=== PATIENT | male | born 1995 | race Caucasian/White ===

== ENCOUNTER 2020-11-12 11:09 | Inpatient (IN) | payer OTHER, SELFPAY ==
--- NOTE | ~2020-11-12 | CT_ITS ---
EXAMINATION: CT abdomen pelvis w con CLINICAL INFORMATION: Reason for Exam elevated liver enzymes. gallstones, cholecysitis? COMPARISON: Prior CT scan June 2017 TECHNIQUE: Multidetector volumetric imaging was performed from the superior aspect of the liver through the pubic symphysis 85 mL Omnipaque 350 injected. Sagittal and coronal reformatted images were obtained on the technologist's workstation. This CT examination was performed using dose optimization techniques as appropriate, variously including the following: *Automated exposure control *Adjustment of mA and/or kV according to patient size (this includes techniques or standardized protocols for targeted exams where dose is matched to indication/reason for exam; i.e. extremities or head) *Use of iterative reconstruction technique DLP: 392 mGy-cm FINDINGS: LOWER THORAX: Included lung bases are clear. HEPATOBILIARY: No CT evidence of focal liver lesion. Liver is enlarged mildly heterogeneous measuring 28 cm. GALLBLADDER: Gallbladder unremarkable. SPLEEN: Spleen is normal in size. PANCREAS: No focal mass or ductal dilatation. STOMACH AND GASTROINTESTINAL TRACT: Stomach is grossly unremarkable. There is no bowel distention or thickening. Appendix could not be visualized probably obscured by crowding of bowel loops and lack of oral contrast. ADRENALS: No adrenal nodules. KIDNEYS/URETERS: No hydronephrosis, stones or solid mass lesions. URINARY BLADDER: Partially decompressed. PELVIC VISCERA: Unremarkable PERITONEUM: There is moderate amount of ascites in the abdomen and dependent portion of the pelvis uncertain etiology. LYMPH NODES: No lymphadenopathy. VASCULAR:Abdominal aorta normal in size, no aneurysm found. BONES, ABDOMINAL WALL AND SOFT TISSUES: There is diffuse subcutaneous emphysema suggesting possible anasarca, Age-appropriate changes of the spine and skeletal system, no destructive osteolytic or osteosclerotic bone lesion found CT/CT abdomen pelvis w con IMPRESSION: Newly developed moderate ascites in the abdomen and pelvis uncertain etiology however, this is combined with diffuse mild subcutaneous edema suggesting possible anasarca. Heterogeneous liver, liver is enlarged measuring up to 28 cm. Exam otherwise unremarkable.
--- NOTE | ~2020-11-12 | US_ITS ---
EXAMINATION: US VENOUS ULTRASOUND WITH DOPPLER LOWER EXTREMITY, BILATERAL CLINICAL INFORMATION: Bilateral lower extremity swelling. COMPARISON: None TECHNIQUE: Ultrasound of the deep veins is performed from the hip to the calf with compression sonography and color and pulse Doppler assessment. Spectral analysis with color-flow imaging is performed. FINDINGS: Incidental note is made of bilateral enlarged lymph nodes showing partial loss of sinus fat, and cortical thickening, of indeterminate etiology. Note is also made of bilateral lower extremity edema. RIGHT: There is normal venous compression and respiratory variation and augmented flow. The visualized common femoral vein, superficial femoral vein, profunda femoral vein, popliteal vein, and the trifurcation region shows no evidence of deep venous thrombosis. There is no significant popliteal fossa cyst. LEFT: There is normal venous compression and respiratory variation and augmented flow. The visualized common femoral vein, superficial femoral vein, profunda femoral vein, popliteal vein, and the trifurcation region shows no evidence of deep venous thrombosis. There is no significant popliteal fossa cyst. If the patient's symptoms persist, followup ultrasound in 5 days 7 days might be of value to exclude proximal propagation from a non-visualized calf vein. US/US venous duplex LE BI IMPRESSION: No DVT demonstrated in the bilateral lower extremity. Nonspecific bilateral enlarged groin lymph nodes.
--- NOTE | ~2020-11-12 | XR_ITS ---
EXAMINATION: BILATERAL FOOT AND BILATERAL TIBIA AND FIBULA. CLINICAL INFORMATION: Bilateral leg and foot swelling. COMPARISON: None TECHNIQUE: 3 views each foot. 2 views each tibia and fibula and one view chest. FINDINGS: Right foot: There is mild dorsal distal foot soft tissue swelling. No visible acute fracture, dislocation subluxation seen. The ankle mortise and subtalar joints are normal. Right tibia and fibula: There is no visible acute fracture, dislocation or subluxation seen. The soft tissues are normal. The ankle mortise and subtalar joints are normal. Left foot: There is no visible acute fracture, dislocation or subluxation. There is mild dorsal distal foot soft tissue swelling. The ankle mortise and subtalar joints are normal. Left tibia and fibula: There is no visible acute fracture, dislocation or subluxation seen. The soft tissues are normal. The ankle mortise and subtalar joints are normal. XR/XR tibia fibula RT 2V IMPRESSION: Moderate dorsal distal foot soft tissue swelling. No visible acute fracture or dislocation seen. Unremarkable tibia and fibula exam.
--- NOTE | ~2020-11-12 | XR_ITS ---
EXAMINATION: BILATERAL FOOT AND BILATERAL TIBIA AND FIBULA. CLINICAL INFORMATION: Bilateral leg and foot swelling. COMPARISON: None TECHNIQUE: 3 views each foot. 2 views each tibia and fibula and one view chest. FINDINGS: Right foot: There is mild dorsal distal foot soft tissue swelling. No visible acute fracture, dislocation subluxation seen. The ankle mortise and subtalar joints are normal. Right tibia and fibula: There is no visible acute fracture, dislocation or subluxation seen. The soft tissues are normal. The ankle mortise and subtalar joints are normal. Left foot: There is no visible acute fracture, dislocation or subluxation. There is mild dorsal distal foot soft tissue swelling. The ankle mortise and subtalar joints are normal. Left tibia and fibula: There is no visible acute fracture, dislocation or subluxation seen. The soft tissues are normal. The ankle mortise and subtalar joints are normal. XR/XR tibia fibula LT 2V IMPRESSION: Moderate dorsal distal foot soft tissue swelling. No visible acute fracture or dislocation seen. Unremarkable tibia and fibula exam.
--- NOTE | ~2020-11-12 | XR_ITS ---
EXAMINATION: BILATERAL FOOT AND BILATERAL TIBIA AND FIBULA. CLINICAL INFORMATION: Bilateral leg and foot swelling. COMPARISON: None TECHNIQUE: 3 views each foot. 2 views each tibia and fibula and one view chest. FINDINGS: Right foot: There is mild dorsal distal foot soft tissue swelling. No visible acute fracture, dislocation subluxation seen. The ankle mortise and subtalar joints are normal. Right tibia and fibula: There is no visible acute fracture, dislocation or subluxation seen. The soft tissues are normal. The ankle mortise and subtalar joints are normal. Left foot: There is no visible acute fracture, dislocation or subluxation. There is mild dorsal distal foot soft tissue swelling. The ankle mortise and subtalar joints are normal. Left tibia and fibula: There is no visible acute fracture, dislocation or subluxation seen. The soft tissues are normal. The ankle mortise and subtalar joints are normal. XR/XR foot RT 2V IMPRESSION: Moderate dorsal distal foot soft tissue swelling. No visible acute fracture or dislocation seen. Unremarkable tibia and fibula exam.
--- NOTE | ~2020-11-12 | US_ITS ---
EXAMINATION: ULTRASOUND OF THE ABDOMEN PRIOR TO POSSIBLE PARACENTESIS. CLINICAL INFORMATION: New ascites COMPARISON: CT of July 10, 2017 TECHNIQUE: Limited abdominal ultrasound in preparation for paracentesis. FINDINGS: Ultrasound of 4 quadrants of the abdomen and. Umbilical region showed trace free fluid present with no drainable collection being evident. Paracentesis not performed.
--- NOTE | ~2020-11-12 | XR_ITS ---
EXAMINATION: BILATERAL FOOT AND BILATERAL TIBIA AND FIBULA. CLINICAL INFORMATION: Bilateral leg and foot swelling. COMPARISON: None TECHNIQUE: 3 views each foot. 2 views each tibia and fibula and one view chest. FINDINGS: Right foot: There is mild dorsal distal foot soft tissue swelling. No visible acute fracture, dislocation subluxation seen. The ankle mortise and subtalar joints are normal. Right tibia and fibula: There is no visible acute fracture, dislocation or subluxation seen. The soft tissues are normal. The ankle mortise and subtalar joints are normal. Left foot: There is no visible acute fracture, dislocation or subluxation. There is mild dorsal distal foot soft tissue swelling. The ankle mortise and subtalar joints are normal. Left tibia and fibula: There is no visible acute fracture, dislocation or subluxation seen. The soft tissues are normal. The ankle mortise and subtalar joints are normal. XR/XR foot LT 2V IMPRESSION: Moderate dorsal distal foot soft tissue swelling. No visible acute fracture or dislocation seen. Unremarkable tibia and fibula exam.
--- NOTE | ~2020-11-12 | XR_ITS ---
EXAMINATION: XR CHEST CLINICAL INFORMATION: Bilateral foot pain and leg pain COMPARISON: Chest x-ray 11/09/2017. TECHNIQUE: Frontal view of the chest was obtained. FINDINGS: No significant abnormality is noted involving the heart, lungs, mediastinum, bony thorax or soft tissues. XR/XR chest 1V IMPRESSION: Unremarkable chest examination.
[2020-11-12 11:13] VITALS: BP 159/95; PULSE 86; RESP 18; TEMP 36.9; O2SAT 100
[2020-11-12 11:19] LABS: Glucose, Whole Blood 362 mg/dL (60-115)
[2020-11-12 14:00] VITALS: BP 140/82; PULSE 78; RESP 18; O2SAT 99
[2020-11-12 15:16] LABS: MANUAL DIFF FLAG NO
[2020-11-12 15:17] LABS: Basophils Percent Auto 0.7 % (0-2); Eosinophils Absolute Auto 0.1 X10*3/uL (0.0-0.4); Eosinophils Percent Auto 1.1 % (0-4); Hematocrit 34.5 % (42-52); Hemoglobin 11.4 g/dl (14.0-18.0); Imm Gran Abs Auto 0.02 X10*3/uL (0.00-0.03); Imm Gran Pct Auto 0.4 % (0.0-0.4); Lymphocytes Absolute Auto 1.4 X10*3/uL (1.2-4.9); Mean Corpuscular Hemoglobin 30.6 pg (27.0-33.0); Mean Corpuscular Volume 92.5 fL (80-98); Mean Platelet Volume 10.7 fL (9.4-12.4); Monocytes Absolute Auto 0.5 X10*3/uL (0.1-1.2); Monocytes Percent Auto 8.7 % (2-11); Neutrophils Absolute Auto 3.5 X10*3/uL (2.0-8.3); Neutrophils Percent Auto 63.1 % (45-73); Platelet Count 298 X10*3/uL (160-400); Red Blood Count 3.73 X10*6/uL (4.60-5.80); Red Cell Distribution Width 14.6 % (11.0-16.0); White Blood Count 5.5 X10*3/uL (4.8-10.8)
[2020-11-12 15:24] LABS: INTERNATIONAL NORM RATIO 0.8 (0.9-1.1); Prothrombin Time 9.3 SEC (9.9-13.0)
[2020-11-12 15:26] LABS: Partial Thromboplastin Time 31.8 SEC (24.1-38.0)
--- NOTE | 2020-11-12 15:39 | ED_ITS ---
HPI - General Adult General Chief complaint: General Medical Stated complaint: swollen legs/feet Time Seen by Provider: 11/12/20 11:41 Source: patient Mode of arrival: ambulatory Limitations: no limitations History of Present Illness HPI narrative: Patient presents to ED for bilateral lower extremity swelling since last night. Patient denies any recent trauma to lower extremities, redness, fever, chills, or calf pain. Related Data Home Medications Medication Instructions Recorded Confirmed No Known Home Meds 11/12/20 11/12/20 Allergies Allergy/AdvReac Type Severity Reaction Status Date / Time No Known Allergies Allergy Unverified 12/09/19 16:13 Review of Systems Review of Systems: Yes all other systems are reviewed and are negative Constitutional: Constitutional: Reports as per HPI and Reports no additional constitutional complaints Eyes: Eyes: Reports as per HPI and Reports no additional eye complaints ENT: Reports system reviewed and no additional complaints, except as documented and Reports as per HPI Cardiovascular: Cardiovascular: Reports as per HPI and Reports no additional cardiovascular complaints Respiratory: Respiratory: Reports as per HPI and Reports no additional respiratory complaints Gastrointestinal: Gastrointestinal: Reports as per HPI and Reports no additional gastrointestinal complaints Genitourinary: Genitourinary: Reports no additional male genitourinary complaints and Reports as per HPI Comments: Results testicular swelling Musculoskeletal: Musculoskeletal: Reports no additional musculoskeletal complaints and Reports as per HPI Comments: Bilateral lower extremity swelling PMFSH Past Medical History Medical History (Updated 11/12/20 @ 18:39 by PRECIOUS Mckee) HTN (hypertension) Type 1 diabetes Social History Social History Patient Tobacco Use Status: Current someday Tobacco user Smoked in Last 30 Days: Yes Use of substances other than those prescribed or required for medical reasons: Yes Substance Use Type: Marijuana Advance Directives: No Advance Directives Information Provided: No Physical Exam Vital Signs: Vital Signs: Last Vital Signs Temp 97.8 F 11/12/20 17:58 Pulse 78 11/12/20 17:58 Resp 18 11/12/20 17:58 BP 147/81 H 11/12/20 17:58 Pulse Ox 100 11/12/20 17:58 Body Mass Index 20.0 Const: General: cooperative, healthy appearing, comfortable, no acute distress, well developed, alert, awake and Physically active Orientation/consciousness: patient oriented x3 HENMT: Head: Yes normal to inspection, Yes No palpable skull fracture present, Yes normocephalic, Yes atraumatic and No abrasion Eyes: General: appearance normal, both eyes and all related structures Neck: Neck: Yes normal visual inspection, Yes full ROM, Yes no lymphadenopathy, Yes no meningeal signs, Yes trachea midline, Yes supple and No tender Chest: Chest palpation & inspection: normal inspection of the chest and normal palpation of entire chest wall Resp: Effort & Inspection: normal respiratory effort and able to speak in complete sentences Auscultation: clear to auscultation bilaterally Cardio: Jugular venous distension: no JVD Heart sounds: S1 normal heart sound present and S2 normal heart sound present GI: Inspection: Yes normal to inspection and No abdominal wall ecchymosis Palpation (GI): Soft to palpation, not firm, nontender, no guarding and not rigid : General: No CVA tenderness and Yes no CVA tenderness Back/Spine/Pelvis: Back: no CVA tenderness, No CVA tenderness and No back tenderness Skin: General skin exam: no rashes or lesions noted and elasticity normal Neuro: General: patient oriented x3, gait normal, no meningeal signs and CN's II-XI intact bilaterally Cranial nerves: Yes CN's II-XII intact bilaterally Extrem: Other: Positive for bilateral lower extremity swelling and pitting edema of legs/ankle/and feet. Negative for any erythema or calf tenderness. Motor/neuro/vascular exam intact. Psych: Appearance: grossly normal, well kempt and not disheveled Course Course Course Narrative: Patient hypoglycemic while, fluids and be given insulin. Will will do cardiac/anasarca workup. Patient will have EKG BNP troponin and chest x-ray and liver enzymes ordered. Reevaluation(s) Reevaluation #1: BNP 231. Liver enzymes elevated non to compare to her was sent for CT scan. Patient hyperglycemic but not in DKA. Time: 16:35 Reevaluation #2: CT scan shows ascites. Physical exam indicate anasarca possib ly due to liver failure. Patient agreeable to admission. COVID swab negative. EKG will be done. Time: 18:33 Medical Decision Making MDM Narrative Medical decision making narrative: Anasarca. Cirrhosis Lab Data Result diagrams: 11/12/20 15:11 11/12/20 15:11 Labs: Lab Results 11/12/20 11/12/20 11/12/20 Range/Units 11:15 15:11 15:11 WBC 5.5 (4.8-10.8) X10*3/uL RBC 3.73 L (4.60-5.80) X10*6/uL Hgb 11.4 L (14.0-18.0) g/dl Hct 34.5 L (42-52) % MCV 92.5 (80-98) fL MCH 30.6 (27.0-33.0) pg MCHC 33.0 (31.0-36.0) g/dl RDW 14.6 (11.0-16.0) % Plt Count 298 (160-400) X10*3/uL MPV 10.7 (9.4-12.4) fL Immature Gran % (Auto) 0.4 (0.0-0.4) % Neut % (Auto) 63.1 (45-73) % Lymph % (Auto) 26.0 (20-40) % [place] % (Auto) 8.7 (2-11) % Eos % (Auto) 1.1 (0-4) % Baso % (Auto) 0.7 (0-2) % Lymph # (Auto) 1.4 (1.2-4.9) X10*3/uL [place] # (Auto) 0.5 (0.1-1.2) X10*3/uL Eos # (Auto) 0.1 (0.0-0.4) X10*3/uL Baso # (Auto) 0.0 (0.0-0.2) X10*3/uL Abs Immat Gran (auto) 0.02 (0.00-0.03) X10*3/uL Absolute Neuts (auto) 3.5 (2.0-8.3) X10*3/uL Absolute Nucleated RBC 0.000 (0.0-0.012) X10*3/uL Nucleated RBC % (auto) 0.0 (0.0-0.2) /100WBC PT 9.3 L (9.9-13.0) SEC INR 0.8 L (0.9-1.1) APTT 31.8 (24.1-38.0) SEC Sodium (135-145) mmol/L Potassium (3.3-5.1) mmol/L Chloride (96-108) mmol/L Carbon Dioxide (22-29) mmol/L Anion Gap (12-20) BUN (9-16) mg/dL Creatinine (0.5-1.4) mg/dL Estim Creat Clear Calc Estimated GFR POC Glucose 362 H* (60-115) mg/dL Random Glucose (60-115) mg/dL Calcium (8.4-10.2) mg/dL Total Bilirubin (0.0-1.0) mg/dL AST (5-37) U/L ALT (0-40) U/L Alkaline Phosphatase (39-117) U/L Troponin I High Sens (<3.5-35.0) ng/L B-Natriuretic Peptide (<100) pg/mL Total Protein (6.5-8.0) g/dL Albumin (3.5-5.0) g/dL Acetone, Qual (Negative) COVID-19 (ELLIOT) (Negative) COVID-19 Clin Com 11/12/20 11/12/20 11/12/20 Range/Units 15:11 15:11 16:09 WBC (4.8-10.8) X10*3/uL RBC (4.60-5.80) X10*6/uL Hgb (14.0-18.0) g/dl Hct (42-52) % MCV (80-98) fL MCH (27.0-33.0) pg MCHC (31.0-36.0) g/dl RDW (11.0-16.0) % Plt Count (160-400) X10*3/uL MPV (9.4-12.4) fL Immature Gran % (Auto) (0.0-0.4) % Neut % (Auto) (45-73) % Lymph % (Auto) (20-40) % [place] % (Auto) (2-11) % Eos % (Auto) (0-4) % Baso % (Auto) (0-2) % Lymph # (Auto) (1.2-4.9) X10*3/uL [place] # (Auto) (0.1-1.2) X10*3/uL Eos # (Auto) (0.0-0.4) X10*3/uL Baso # (Auto) (0.0-0.2) X10*3/uL Abs Immat Gran (auto) (0.00-0.03) X10*3/uL Absolute Neuts (auto) (2.0-8.3) X10*3/uL Absolute Nucleated RBC (0.0-0.012) X10*3/uL Nucleated RBC % (auto) (0.0-0.2) /100WBC PT (9.9-13.0) SEC INR (0.9-1.1) APTT (24.1-38.0) SEC Sodium 138 (135-145) mmol/L Potassium 5.3 H (3.3-5.1) mmol/L Chloride 102 (96-108) mmol/L Carbon Dioxide 26 (22-29) mmol/L Anion Gap 15 (12-20) BUN 15 (9-16) mg/dL Creatinine 0.81 (0.5-1.4) mg/dL Estim Creat Clear Calc 105.4 Estimated GFR > 60 POC Glucose 433 H* (60-115) mg/dL Random Glucose 497 H* (60-115) mg/dL Calcium 8.9 (8.4-10.2) mg/dL Total Bilirubin 0.5 (0.0-1.0) mg/dL AST 129 H (5-37) U/L ALT 176 H (0-40) U/L Alkaline Phosphatase 145 H (39-117) U/L Troponin I High Sens < 3.5 (<3.5-35.0) ng/L B-Natriuretic Peptide 213 H (<100) pg/mL Total Protein 6.0 L (6.5-8.0) g/dL Albumin 3.4 L (3.5-5.0) g/dL Acetone, Qual Negative (Negative) COVID-19 (ELLIOT) (Negative) COVID-19 Clin Com 11/12/20 11/12/20 Range/Units 17:45 17:50 WBC (4.8-10.8) X10*3/uL RBC (4.60-5.80) X10*6/uL Hgb (14.0-18.0) g/dl Hct (42-52) % MCV (80-98) fL MCH (27.0-33.0) pg MCHC (31.0-36.0) g/dl RDW (11.0-16.0) % Plt Count (160-400) X10*3/uL MPV (9.4-12.4) fL Immature Gran % (Auto) (0.0-0.4) % Neut % (Auto) (45-73) % Lymph % (Auto) (20-40) % [place] % (Auto) (2-11) % Eos % (Auto) (0-4) % Baso % (Auto) (0-2) % Lymph # (Auto) (1.2-4.9) X10*3/uL [place] # (Auto) (0.1-1.2) X10*3/uL Eos # (Auto) (0.0-0.4) X10*3/uL Baso # (Auto) (0.0-0.2) X10*3/uL Abs Immat Gran (auto) (0.00-0.03) X10*3/uL Absolute Neuts (auto) (2.0-8.3) X10*3/uL Absolute Nucleated RBC (0.0-0.012) X10*3/uL Nucleated RBC % (auto) (0.0-0.2) /100WBC PT (9.9-13.0) SEC INR (0.9-1.1) APTT (24.1-38.0) SEC Sodium (135-145) mmol/L Potassium (3.3-5.1) mmol/L Chloride (96-108) mmol/L Carbon Dioxide (22-29) mmol/L Anion Gap (12-20) BUN (9-16) mg/dL Creatinine (0.5-1.4) mg/dL Estim Creat Clear Calc Estimated GFR POC Glucose 197 H (60-115) mg/dL Random Glucose (60-115) mg/dL Calcium (8.4-10.2) mg/dL Total Bilirubin (0.0-1.0) mg/dL AST (5-37) U/L ALT (0-40) U/L Alkaline Phosphatase (39-117) U/L Troponin I High Sens (<3.5-35.0) ng/L B-Natriuretic Peptide (<100) pg/mL Total Protein (6.5-8.0) g/dL Albumin (3.5-5.0) g/dL Acetone, Qual (Negative) COVID-19 (ELLIOT) Negative (Negative) COVID-19 Clin Com See Note Discharge Plan Discharge Clinical Impression: Anasarca, Ascites Patient Disposition: Admitted As Inpatient
[2020-11-12 15:47] LABS: B Type Natriuretic Peptide 213 pg/mL (<100); Troponin-I High Sensitivity < 3.5 ng/L (<3.5-35.0)
[2020-11-12 15:49] LABS: Alanine Aminotransferase 176 U/L (0-40); Albumin Level 3.4 g/dL (3.5-5.0); Alkaline Phosphatase 145 U/L (39-117); Anion Gap 15 (12-20); Aspartate Amino Transferase 129 U/L (5-37); Bilirubin Total 0.5 mg/dL (0.0-1.0); Blood Urea Nitrogen 15 mg/dL (9-16); Calcium 8.9 mg/dL (8.4-10.2); Carbon Dioxide 26 mmol/L (22-29); Chloride 102 mmol/L (96-108); Creatinine Clr Calc Pharmacy 105.4; Estimated Glomerular Filt Rate > 60; Glucose Random 497 mg/dL (60-115); Potassium 5.3 mmol/L (3.3-5.1); Sodium 138 mmol/L (135-145)
[2020-11-12 16:00] VITALS: BP 149/89; PULSE 83; RESP 18; TEMP 36.9; O2SAT 100
[2020-11-12 16:00] LABS: Acetone, serum QL Negative (Negative)
[2020-11-12] MEDS: 0.9 % Sodium Chloride 1,000 ML 999 ML IV (16:15)
[2020-11-12] MEDS: Insulin Regular, Human 100 UNIT/ML 3 ML VIAL 10 UNIT IVPUSH (16:16)
[2020-11-12 16:25] LABS: Glucose, Whole Blood 433 mg/dL (60-115)
[2020-11-12] MEDS: iohexoL 350 MG/ML 100 ML INFUS..BTL IV (16:54)
[2020-11-12 17:48] LABS: Glucose, Whole Blood 197 mg/dL (60-115)
[2020-11-12 17:58] VITALS: BP 147/81; PULSE 78; RESP 18; TEMP 36.6; O2SAT 100
[2020-11-12 18:11] LABS: COVID-19 Test Negative (Negative)
--- NOTE | 2020-11-12 18:34 | ECG_ITS ---
Test Reason : EDEMA Blood Pressure : / mmHG Vent. Rate : 075 BPM Atrial Rate : 075 BPM P-R Int : 134 ms QRS Dur : 082 ms QT Int : 422 ms P-R-T Axes : 055 009 018 degrees QTc Int : 471 ms Normal sinus rhythm Nonspecific T wave abnormality Prolonged QT Abnormal ECG When compared with ECG of 17-JUN-2017 12:35, Nonspecific T wave abnormality now evident in Inferior leads Nonspecific T wave abnormality now evident in Anterior leads Referred By: Toni Garvin Electronically Signed By:LELIA DELEON
--- NOTE | 2020-11-12 19:17 | P.HPHOSP_ITS ---
History of Present Illness Date of Service: 11/12/20 Chief Complaint: Leg swelling 25-year-old male with history of diabetes mellitus type 1 (with prior episodes of DKA, including a recent episode on 10/31/2020), also has history of hypertension, depression, cocaine use, alcohol abuse, who presented with new onset bilateral lower extremity swelling. History from the patient and from ED notes. Patient endorses that he was discharged from [facility] on 11/01/2020 after being treated for severe DKA; at that time was also found to be in paroxysmal atrial fibrillation (which resolved before he was discharged), as well as suicidal ideation. After discharge, he was doing fine up until yesterday, when he noticed bilateral lower extremity swelling. Subsequently, he came to the ED. He denies any other symptoms (denies chest pain, shortness of breath, fever, chills, nausea, vomiting, abdominal pain). He wonders if his high salt diet might have led to this. In the ED, vital signs were significant for blood pressure as high as 159/95, otherwise vitals were unremarkable. CBC and BMP were remarkable for potassium of 5.3, blood glucose as high as 497, AST 129, ALT 176, alkaline phosphatase 145, BNP 213, total protein low at 6.0, albumin low at 3.4. Chest x-ray, bilateral foot and bilateral tibia and fibula x-rays, venous duplex were all negative for acute bony issues, but did show lower extremity edema. Abdominal/pelvis CT revealed newly developed moderate ascites in the abdomen and pelvis uncertain etiology however, this is combined with diffuse mild subcutaneous edema suggesting possible anasarca. Heterogeneous liver, liver is enlarged measuring 28 cm. In the ED, the patient was treated with insulin, 1 L IV fluid bolus. The patient is being admitted for new lower extremity swelling/anasarca, transaminitis. Review of Systems Review of Systems: Constitutional: ?No Weight Change, No Fever, No Chills, No Night Sweats, No Fatigue, No Malaise ENT/Mouth: ?No Hearing Changes, No Ear Pain, No Nasal Congestion, No Sinus Pain, No Hoarseness, No sore throat, No Rhinorrhea, No Swallowing Difficulty Eyes: ?No Eye Pain, No Swelling, No Redness, No Discharge, No Vision Changes Cardiovascular: ?No Chest Pain, No SOB, No Orthopnea, No Claudication, No Palpitations. POSITIVE for bilateral lower extremity Edema Respiratory: ?No Cough, No Sputum, No Wheezing, No Smoke Exposure, No Dyspnea on Exertion, No Dyspnea Gastrointestinal: ?No Nausea, No Vomiting, No Diarrhea, No Constipation, No Pain , No Heartburn, No Anorexia, No Dysphagia, No Hematochezia, No Melena, No Jaundice Genitourinary: ?No Dysuria, No Urinary Frequency, No Hematuria, No Flank Pain Musculoskeletal: ?No Joint Swelling, No Joint Stiffness, No Back Pain, No Neck Pain Skin: ?No Skin Lesions, No Pruritis Neuro: ?No Weakness, No Numbness, No Paresthesias, No Loss of Consciousness, No Syncope, No Dizziness, No Headache, No Coordination Changes, No Recent Falls Psych: ?No Anxiety/Panic, No Depression, No Insomnia, No Personality Changes, No Delusions, No Suicidal Ideation /Homicidal Ideation /Auditory Hallucinations /Visual Hallucinations Heme/Lymph: ?No Bruising, No Bleeding, No Transfusions History, No Lymphadenopathy Endocrine: ?No Polyuria, No Polydipsia, No Temperature Intolerance [facility] Medical History Cocaine use disorder, mild, in early remission Depression H/O alcohol abuse HTN (hypertension) Paroxysmal A-fib Type 1 diabetes Pertinent family history: Paternal grandfather with DM2 Surgical History H/O laceration repair Social History Patient Tobacco Use Status: Current someday Tobacco user Smoked in Last 30 Days: Yes Use of substances other than those prescribed or required for medical reasons: Yes Substance Use Type: Marijuana Advance Directives: No Advance Directives Information Provided: No Meds Allergies Allergy/AdvReac Type Severity Reaction Status Date / Time No Known Allergies Allergy Unverified 12/09/19 16:13 Active Medications: Current Medications Generic Name Dose Route Start Last Admin Trade Name Freq PRN Reason Stop Dose Admin Acetaminophen 650 mg 11/12/20 19:12 Acetaminophen 325 Mg Tablet PO Q6H PRN Pain, Mild (Pain Scale 1-3) Enoxaparin Sodium 40 mg 11/12/20 20:00 Enoxaparin Sodium 40 Mg/0.4 Ml Syringe SUBCUT Q24H ADRIANA Sodium Chloride 3 ml 11/13/20 00:00 0.9 % Sodium Chloride Flush 3 Ml Syringe IVFLUSH QSHIFT [facility] Home Medications Medication Instructions Recorded Confirmed Last Taken Type No Known Home Meds 11/12/20 11/12/20 Unknown History Physical Exam Vital Signs and Narrative: Vital Signs: Last Vital Signs Temp 97.8 F 11/12/20 17:58 Pulse 78 11/12/20 17:58 Resp 18 11/12/20 17:58 BP 147/81 H 11/12/20 17:58 Pulse Ox 100 11/12/20 17:58 Body Mass Index 20.0 GENERAL APPEARANCE: Well developed, well nourished, alert and cooperative, and appears to be in no acute distress. HEAD: Normocephalic. EYES: PERRL, EOMI. Vision is grossly intact. EARS: Hearing grossly intact. NOSE: No nasal discharge. THROAT: Oral cavity and pharynx normal. No inflammation, swelling, exudate, or lesions. NECK: Neck supple, non-tender without lymphadenopathy, masses or thyromegaly. CARDIAC: Normal S1 and S2. No S3, S4 or murmurs. Rhythm is regular. There is no cyanosis or pallor. Extremities are warm and well perfused. THERE IS 2+ bi lateral lower extremity pitting edema LUNGS: Clear to auscultation and percussion without rales, rhonchi, wheezing or diminished breath sounds. ABDOMEN: Positive bowel sounds. Soft, nondistended, nontender. No guarding or rebound. No masses. MUSKULOSKELETAL: Examination of both shoulders, elbows, wrists, ankles, knees, legs, and hips reveals normal range of motion, normal sensation without tender ness, swelling, discoloration, weakness or deformity. Peripheral pulses intact. NEUROLOGICAL: CN II-XII intact. Strength and sensation symmetric and intact throughout. SKIN: Skin normal color, texture and turgor with no lesions or eruptions. PSYCHIATRIC: The mental examination revealed the patient was oriented to person, place, and time. The patient was able to demonstrate good judgement and reason, without hallucinations, abnormal affect or abnormal behaviors during the examination. Results Labs CBC and Chem 7: 11/12/20 15:11 11/12/20 15:11 Labs: Laboratory Results - last 24 hr 11/12/20 11/12/20 11/12/20 11:15 15:11 15:11 MCV 92.5 MCH 30.6 MCHC 33.0 RDW 14.6 Plt Count 298 MPV 10.7 Immature Gran % (Auto) 0.4 Neut % (Auto) 63.1 Lymph % (Auto) 26.0 [place] % (Auto) 8.7 Eos % (Auto) 1.1 Baso % (Auto) 0.7 Lymph # (Auto) 1.4 [place] # (Auto) 0.5 Eos # (Auto) 0.1 Baso # (Auto) 0.0 Abs Immat Gran (auto) 0.02 Absolute Neuts (auto) 3.5 Absolute Nucleated RBC 0.000 Nucleated RBC % (auto) 0.0 PT 9.3 L INR 0.8 L APTT 31.8 Anion Gap Estim Creat Clear Calc Estimated GFR POC Glucose 362 H* Random Glucose Calcium Total Bilirubin AST ALT Alkaline Phosphatase Troponin I High Sens B-Natriuretic Peptide Total Protein Albumin Acetone, Qual COVID-19 (ELLIOT) COVID-[employer] 11/12/20 11/12/20 11/12/20 15:11 15:11 16:09 MCV MCH MCHC RDW Plt Count MPV Immature Gran % (Auto) Neut % (Auto) Lymph % (Auto) [place] % (Auto) Eos % (Auto) Baso % (Auto) Lymph # (Auto) [place] # (Auto) Eos # (Auto) Baso # (Auto) Abs Immat Gran (auto) Absolute Neuts (auto) Absolute Nucleated RBC Nucleated RBC % (auto) PT INR APTT Anion Gap 15 Estim Creat Clear Calc 105.4 Estimated GFR > 60 POC Glucose 433 H* Random Glucose 497 H* Calcium 8.9 Total Bilirubin 0.5 AST 129 H ALT 176 H Alkaline Phosphatase 145 H Troponin I High Sens < 3.5 B-Natriuretic Peptide 213 H Total Protein 6.0 L Albumin 3.4 L Acetone, Qual Negative COVID-19 (ELLIOT) COVID-[employer] 11/12/20 11/12/20 17:45 17:50 MCV MCH MCHC RDW Plt Count MPV Immature Gran % (Auto) Neut % (Auto) Lymph % (Auto) [place] % (Auto) Eos % (Auto) Baso % (Auto) Lymph # (Auto) [place] # (Auto) Eos # (Auto) Baso # (Auto) Abs Immat Gran (auto) Absolute Neuts (auto) Absolute Nucleated RBC Nucleated RBC % (auto) PT INR APTT Anion Gap Estim Creat Clear Calc Estimated GFR POC Glucose 197 H Random Glucose Calcium Total Bilirubin AST ALT Alkaline Phosphatase Troponin I High Sens B-Natriuretic Peptide Total Protein Albumin Acetone, Qual COVID-19 (ELLIOT) Negative COVID-19 Clin Com See Note Imaging Radiologist's Impressions: Impressions Chest X-Ray 11/12/20 14:54 IMPRESSION: Unremarkable chest examination. Foot X-Ray 11/12/20 14:54 IMPRESSION: Moderate dorsal distal foot soft tissue swelling. No visible acute fracture or dislocation seen. Unremarkable tibia and fibula exam. Foot X-Ray 11/12/20 14:54 IMPRESSION: Moderate dorsal distal foot soft tissue swelling. No visible acute fracture or dislocation seen. Unremarkable tibia and fibula exam. Tibia/Fibula X-Ray 11/12/20 14:54 IMPRESSION: Moderate dorsal distal foot soft tissue swelling. No visible acute fracture or dislocation seen. Unremarkable tibia and fibula exam. Tibia/Fibula X-Ray 11/12/20 14:54 IMPRESSION: Moderate dorsal distal foot soft tissue swelling. No visible acute fracture or dislocation seen. Unremarkable tibia and fibula exam. Venous Duplex 11/12/20 14:54 IMPRESSION: No DVT demonstrated in the bilateral lower extremity. Nonspecific bilateral enlarged groin lymph nodes. Abdomen/Pelvis CT 11/12/20 16:07 IMPRESSION: Newly developed moderate ascites in the abdomen and pelvis uncertain etiology however, this is combined with diffuse mild subcutaneous edema suggesting possible anasarca. Heterogeneous liver, liver is enlarged measuring up to 28 cm. Exam otherwise unremarkable. Assessment and Plan (1) Anasarca: Status: Acute (2) Ascites: Status: Acute (3) Cocaine use disorder, mild, in early remission: Status: Acute (4) Paroxysmal A-fib: Status: Acute (5) HTN (hypertension): Status: Acute (6) Depression: Status: Acute (7) H/O alcohol abuse: Status: Acute Anasarca/Ascities: -CT of the abdomen/pelvis revealed newly developed moderate ascites in the abdomen and pelvis uncertain etiology however, this is combined with diffuse mild subcutaneous edema suggesting possible anasarca. -CT of the abdomen also showed heterogeneous liver, liver is enlarged measuring up to 28 cm -DDX: Congestive heart failure, Budd-Chiari syndrome (portal vein thrombosis), perhaps there is inflammation in the liver (hepatitis) causing restriction of blood flow, other -ordered paracentesis with labs to look for etiology (With the following labs: Ascities culture/ LDH/ gram stain/ albumin/ cell count and differential/ total protein/ Glucose). -Morning team can calculate the saag score when above labs return -wrap and elevate legs to promote intravascular flow of subcutaneous fluid -likely will give Lasix dose after the legs have been wrapped for few hours -order D-dimer to assess for Budd-Chiari syndrome. If D-dimer is positive, would need a venous Doppler of the portal vein -hepatitis panel ordered (HBsAg blood, HCV antibody blood, Hepatitis B core antibody, IgM ) -echocardiogram ordered -Consider GI consult Cocaine use disorder: -patient endorses that his last use of cocaine was about 2-3 weeks ago -May have contributed to possible heart failure -If echo shows new heart failure, consider cardiology consult. Paroxysmal atrial fibrillation: -on his hospital records from [facility], it does state that the patient did have paroxysmal atrial fibrillation, but that he reverted to sinus tachycardia -telemetry ordered Hypertension: -possibly exacerbated with cocaine use in the past, which could have caused congestive heart failure (possible in the face of new onset anasarca) -continue home medications -echocardiogram to assess for CHF as per above Depression: -continue home medications History of alcohol abuse: -noted FEN: Diabetic diet CODE STATUS: FULL CODE DISPO: Admit to Observation Quality Stroke Does the patient have a stroke diagnosis?: No VTE Prior VTE?: No VTE Risk Level:: Medical - low VTE Device Contraindication: Treatment Not Indicated VTE Drug Contraindication: N/A - Med Ordered
[2020-11-12] MEDS: Enoxaparin Sodium 40 MG/0.4 ML SYRINGE SUBCUT (20:27)
[2020-11-12 20:32] VITALS: BP 129/67; PULSE 85; RESP 18; TEMP 36.9; O2SAT 98
[2020-11-12 20:34] VITALS: BP 129/67; PULSE 85; RESP 18; TEMP 36.9; O2SAT 98
[2020-11-13] VITALS: BP 129/67; PULSE 98; RESP 16; O2SAT 99
[2020-11-13] MEDS: Furosemide 40 MG/4 ML VIAL IVPUSH (00:48)
[2020-11-13] MEDS: 0.9 % Sodium Chloride Flush 3 ML SYRINGE IVFLUSH ×2 (00:49→08:44)
--- NOTE | 2020-11-13 03:48 | PC.NURSE ---
pt began c/o severe abdominal pain. md aware. plan: to order zofran for nausea/vomiting and2mg morphine for severe abd pain.
[2020-11-13 04:00] VITALS: BP 141/64; PULSE 100; RESP 18; TEMP 36.8; O2SAT 100
[2020-11-13] MEDS: ondansetron HCL 4 MG/2 ML VIAL IVPUSH (04:04)
[2020-11-13] MEDS: Morphine Sulfate 2 MG/ML CARTRIDGE IVPUSH (04:05)
[2020-11-13 04:22] LABS: Glucose, Whole Blood 579 mg/dL (60-115)
[2020-11-13 04:24] LABS: Glucose, Whole Blood 593 mg/dL (60-115)
--- NOTE | 2020-11-13 04:26 | PC.NURSE ---
MD NOTIFIED OF 2X BGL OF 597 AND 593, BGL VERIFIED WITH CONTROL. TO ORDER LABS, IVF, INSULIN.
[2020-11-13] MEDS: 0.9 % Sodium Chloride 1,000 ML 999 ML IV (04:40)
[2020-11-13] MEDS: Insulin Regular, Human 100 UNIT/ML 3 ML VIAL 10 UNIT IVPUSH (04:41)
--- NOTE | 2020-11-13 04:44 | PC.NURSE ---
2ND IV PLACED.
[2020-11-13 04:53] LABS: Acetone, serum QL Small (Negative)
--- NOTE | 2020-11-13 04:58 | PC.NURSE ---
Hospitalist notified of ekg results.
--- NOTE | 2020-11-13 05:03 | PC.NURSE ---
notified of small acetone.
[2020-11-13 05:04] LABS: Anion Gap 30 (12-20); Blood Urea Nitrogen 19 mg/dL (9-16); Calcium 8.7 mg/dL (8.4-10.2); Carbon Dioxide 14 mmol/L (22-29); Chloride 95 mmol/L (96-108); Estimated Glomerular Filt Rate > 60; Sodium 134 mmol/L (135-145)
[2020-11-13 05:07] LABS: Glucose Random 646 mg/dL (60-115)
--- NOTE | 2020-11-13 05:07 | PC.NURSE ---
notified labs plan to start insulin drip
[2020-11-13 05:22] LABS: HBc Num1 0.08 S/CO (0.00-0.79); Hepatitis B Core Antibody Nonreactive (Nonreactive); Hepatitis B Surface Antigen Negative (Negative); ~HepC Num1 0.05 S/CO (0.00-0.79); ~Hepatitis C Antibody Nonreactive (Nonreactive)
[2020-11-13] MEDS: 0.9 % Sodium Chloride 1,000 ML 150 ML IVCONT (05:34)
[2020-11-13] MEDS: Insulin Regular/NS 100 UNIT/100 ML PLAST..BAG IVCONT (05:34)
[2020-11-13 05:35] LABS: Glucose, Whole Blood 442 mg/dL (60-115)
[2020-11-13 05:49] LABS: Basophils Absolute Auto 0.1 X10*3/uL (0.0-0.2); Basophils Percent Auto 0.5 % (0-2); Eosinophils Absolute Auto 0.1 X10*3/uL (0.0-0.4); Eosinophils Percent Auto 0.5 % (0-4); Hematocrit 37.6 % (42-52); Hemoglobin 12.5 g/dl (14.0-18.0); Imm Gran Abs Auto 0.05 X10*3/uL (0.00-0.03); Imm Gran Pct Auto 0.5 % (0.0-0.4); Lymphocytes Absolute Auto 1.4 X10*3/uL (1.2-4.9); Lymphocytes Percent Auto 14.1 % (20-40); Mean Corpuscular HGB Conc 33.2 g/dl (31.0-36.0); Mean Corpuscular Hemoglobin 30.4 pg (27.0-33.0); Mean Corpuscular Volume 91.5 fL (80-98); Mean Platelet Volume 10.3 fL (9.4-12.4); Monocytes Absolute Auto 0.7 X10*3/uL (0.1-1.2); Monocytes Percent Auto 7.3 % (2-11); Neutrophils Absolute Auto 7.8 X10*3/uL (2.0-8.3); Neutrophils Percent Auto 77.1 % (45-73); Platelet Count 348 X10*3/uL (160-400); Red Blood Count 4.11 X10*6/uL (4.60-5.80); Red Cell Distribution Width 14.3 % (11.0-16.0); White Blood Count 10.1 X10*3/uL (4.8-10.8)
[2020-11-13 05:50] LABS: MANUAL DIFF FLAG NO
[2020-11-13 06:04] VITALS: O2SAT 98
[2020-11-13 06:09] LABS: ABG Base Excess -9.1 mmol/L; ABG HCO3 15 mmol/L (22-26); ABG pCO2 27 mmHg (32-45); ABG pCO2 TC 27 mmHg (32-45); ABG pH 7.34 (7.35-7.45); ABG pH TC 7.34 (7.35-7.45); ABG pO2 130 mmHg (83-108); ABG pO2 TC 129 (83-108)
[2020-11-13 06:14] LABS: Estimated Average Glucose 272 mg/dL; Hemoglobin A1c % 11.1 %
[2020-11-13 06:23] LABS: Anion Gap 25 (12-20); Blood Urea Nitrogen 18 mg/dL (9-16); Calcium 8.8 mg/dL (8.4-10.2); Carbon Dioxide 17 mmol/L (22-29); Chloride 98 mmol/L (96-108); Creatinine Clr Calc Pharmacy 82.1; Estimated Glomerular Filt Rate > 60; Glucose Random 525 mg/dL (60-115); Phosphorus 3.7 mg/dL (2.7-4.5); Potassium 4.1 mmol/L (3.3-5.1); Sodium 136 mmol/L (135-145)
[2020-11-13 06:38] LABS: Glucose, Whole Blood 335 mg/dL (60-115)
--- NOTE | 2020-11-13 06:44 | PC.NURSE ---
Insulin drip decreased per protocol by poc bgl-carlie joshi witnessed.
[2020-11-13 06:51] LABS: D Dimer 219 NG/ML
[2020-11-13] MEDS: KCl 40 mEq in 5% Dex/0.45% Sod 40 MEQ/1,000 ML IV.SOLN 150 MEQ IVCONT (06:56)
[2020-11-13 08:00] VITALS: BP 100/56; PULSE 94; RESP 18; O2SAT 98
[2020-11-13] MEDS: Lactated Ringers 1,000 ML 100 ML IVCONT (09:08)
--- NOTE | 2020-11-13 09:38 | PM.CCN ---
Critical Care Event Note Summary Date of Service: 11/13/20 Code activated: No Narrative: Notified by nurse that patient wants to leave the hospital against medical advice. On my examination patient is alert and oriented, hemodynamically stable, normoxemic on room air with no complaints, except wanting to leave the hospital. Patient does stents that he has significant diabetic ketoacidosis and can if he does not get sufficient amount of insulin and IV fluids. Patient wants to leave regardless. Discharge against medical advice order placed. Critical Care Time (minutes): 0
--- NOTE | 2020-11-13 09:47 | MHC.CM.PN ---
Pt has opted to leave AMA and will not be seen by CM
--- NOTE | 2020-11-13 11:01 | PM.DS ---
DS: Providers Provider Date of Service: 11/13/20 Date of admission: 11/13/20 07:15 Primary care physician: Tl Roach MD DS: Diagnosis Discharge Diagnosis (1) Anasarca: Status: Acute (2) Ascites: Status: Acute (3) Cocaine use disorder, mild, in early remission: Status: Acute (4) Paroxysmal A-fib: Status: Acute (5) HTN (hypertension): Status: Acute (6) Depression: Status: Acute (7) H/O alcohol abuse: Status: Acute DS: Medications Discharge Medications Home Medications: Home Medications Medication Instructions Recorded Confirmed amlodipine 5 mg tablet 1 tab PO DAILY 11/13/20 11/13/20 blood sugar diagnostic (FreeStyle 11/13/20 11/13/20 Lite Strips) flash glucose sensor (FreeStyle 11/13/20 11/13/20 Anton 14 Day Sensor) insulin glargine 100 unit/mL (3 30 unit SUBCUT QAM 11/13/20 11/13/20 mL) subcutaneous pen (Lantus Solostar U-100 Insulin) insulin lispro 100 unit/mL See Protocol SUBCUT DIRECTED 11/13/20 11/13/20 subcutaneous pen (Humalog KwikPen (U-100) Insulin) lisinopril 5 mg tablet 0.5 tab PO DAILY 11/13/20 11/13/20 mirtazapine 7.5 mg tablet 1 tab PO BEDTIME 11/13/20 11/13/20 pen needle, diabetic 31 gauge x 11/13/20 11/13/20 3/16 (BD Ultra-Fine Mini Pen Needle) DS: Summary Hospital Course Hospital Course: 25-year-old gentleman with underlying history of polysubstance abuse, paroxysmal AFib, diabetes mellitus, poor compliance with insulin therapy admitted on 11/12/2020 with diabetic ketoacidosis and started on insulin. Patient decided that he wants to leave the hospital against medical advice on 11/13/2020 at approximately 9 in the morning. On my examination patient is alert and oriented, hemodynamically stable, normoxemic on room air with no complaints, except wanting to leave the hospital. Patient does understan that he has significant diabetic ketoacidosis and can if he does not get sufficient amount of insulin and IV fluids. Patient wants to leave regardless. Patient discharged against medical advice. Time Spent with Patient Time attestation: Total time spent providing and/or coordinating discharge services: Discharge coordination time: Greater than 30 minutes Quality: Stroke Does the patient have a stroke diagnosis?: No Physical Exam Vital Signs: Vital Signs: Last Vital Signs Temp 98.3 F 11/13/20 04:00 Pulse 94 11/13/20 08:00 Resp 18 11/13/20 08:00 BP 100/56 L 11/13/20 08:00 Pulse Ox 98 11/13/20 08:00 Body Mass Index 20.0 Const: General: no acute distress, alert and awake Eyes: Sclerae: sclerae normal EOM: EOMs intact bilaterally Neck: Neck: Yes no lymphadenopathy, Yes trachea midline and Yes supple Resp: Effort & Inspection: normal respiratory effort and no respiratory distress Auscultation: clear to auscultation bilaterally Cardio: Rate: regular rate Rhythm: regular rhythm Heart sounds: no gallops, no murmurs and no rubs GI: Palpation (GI): Soft to palpation and Other GI palpation findings present ( Nontender) Auscultation: normal bowel sounds Extrem: General: Yes no pedal edema, No clubbing and No cyanosis Discharge Plan Discharge Patient Disposition: Left Against Medical Advice Discharge Diagnosis: Diabetic ketoacidosis Referrals: Tl Roach MD [Primary Care Provider] - 1 Week Discharge Medications: No Action (DME) FreeStyle Lite Strips Strip MISCELLANEOUS QID RF: 0 amlodipine 5 mg tablet 1 tab PO DAILY RF: 0 lisinopril 5 mg tablet 0.5 tab PO DAILY RF: 0 insulin lispro [Humalog KwikPen Insulin] 100 unit/mL insulin pen See Protocol unit subcut DIRECTED RF: 0 mirtazapine 7.5 mg tablet 1 tab PO BEDTIME RF: 0 (DME) pen needle, diabetic [BD Ultra-Fine Mini Pen Needle] 31 gauge x 3/16 needle subcut RF: 0 Lantus Solostar U-100 Insulin 100 unit/mL (3 mL) insulin pen 30 unit subcut QAM RF: 0 (DME) FreeStyle Anton 14 Day Sensor Kit topical RF: 0 Discharge Orders: Discharge Order (Routine); Ordered 11/13/20 Ordered By: Miko Diallo Stand Alone Forms: Work/School Release Care Plan Goals: Left against medical advise Health Concerns: Left against medical advise Plan of Treatment: Left against medical advise Assessment: Left against medical advise Discharge Date/Time: 11/13/20 09:59
[2020-11-13 12:15] LABS: Glucose, Whole Blood 342 mg/dL (60-115)
== END 2020-11-13 09:59 | disposition left against medical advice (07) | DRG 420 ==
LOC: HO.ED 18:40 → HO.EDOVER 19:30 → HO.ICU 11-13 09:10
PROVIDERS: Physician Assistant; Admitting Provider Internal Medicine; Emergency Provider Emergency Medicine; PCP Internal Medicine; Visit Provider Internal Medicine
DX: E10.10 Type 1 diabetes mellitus with ketoacidosis without coma (principal); I48.0 Paroxysmal atrial fibrillation; F17.210 Nicotine dependence, cigarettes, uncomplicated; Z20.822 Contact with and (suspected) exposure to COVID-19; F32.9 Major depressive disorder, single episode, unspecified; F14.90 Cocaine use, unspecified, uncomplicated; Z71.6 Tobacco abuse counseling; Z79.4 Long term (current) use of insulin; Z79.899 Other long term (current) drug therapy
CPT/HCPCS: 36415; 36600; 49083; 71045; 73590; 73620; 74177; 80048; 80053; 82009; 82803; 82947; 83036; 83735; 83880; 84100; 84484; 85025; 85379; 85610; 85730; 86704; 86803; 87340; 87635; 93005; 93970; 96361; 96374; 99220; 99285; J1650; J1940; J2270; J2405; Q9967

== ENCOUNTER 2021-04-03 09:02 | Emergency (ER) | payer OTHER, SELFPAY ==
--- NOTE | ~2021-04-03 | US_ITS ---
EXAMINATION: US SCROTUM CLINICAL INFORMATION: Penile scrotal swelling. COMPARISON: None TECHNIQUE: A sonogram of the scrotum was performed assessing sampson-scale appearance and color Doppler flow. Spectral Doppler analysis of the arterial and venous flow were performed in the testes bilaterally. FINDINGS: RIGHT: Right testicle measures 3.1 x 2.7 x 2.5 cm, volume 11 mL. No focal testicular parenchymal lesions are visualized. Spectral Doppler analysis of the arterial and venous flow is normal in the right testis. Right epididymal head is normal in size. There is a small right hydrocele. There is no varicocele. Right epididymal Doppler flow is normal. There is diffuse thickening and edema of the scrotum. LEFT: Left testicle measures 3.3 x 2.5 x 2.8 cm, volume 11.5 mL. No focal testicular parenchymal lesions are visualized. Spectral Doppler analysis of the arterial and venous flow is normal in the left testis. Left epididymal head is normal in size. Varicocele there is a small left hydrocele. There is no varicocele. Left epididymal Doppler flow is normal. The there is diffuse thickening and edema of the scrotum. US/US scrotum doppler IMPRESSION: Diffuse thickening and edema of the scrotum bilaterally. Very small bilateral hydroceles. Normal-appearing testicles.
--- NOTE | ~2021-04-03 | US_ITS ---
EXAMINATION: US SCROTUM CLINICAL INFORMATION: Penile scrotal swelling. COMPARISON: None TECHNIQUE: A sonogram of the scrotum was performed assessing sampson-scale appearance and color Doppler flow. Spectral Doppler analysis of the arterial and venous flow were performed in the testes bilaterally. FINDINGS: RIGHT: Right testicle measures 3.1 x 2.7 x 2.5 cm, volume 11 mL. No focal testicular parenchymal lesions are visualized. Spectral Doppler analysis of the arterial and venous flow is normal in the right testis. Right epididymal head is normal in size. There is a small right hydrocele. There is no varicocele. Right epididymal Doppler flow is normal. There is diffuse thickening and edema of the scrotum. LEFT: Left testicle measures 3.3 x 2.5 x 2.8 cm, volume 11.5 mL. No focal testicular parenchymal lesions are visualized. Spectral Doppler analysis of the arterial and venous flow is normal in the left testis. Left epididymal head is normal in size. Varicocele there is a small left hydrocele. There is no varicocele. Left epididymal Doppler flow is normal. The there is diffuse thickening and edema of the scrotum. US/US scrotum IMPRESSION: Diffuse thickening and edema of the scrotum bilaterally. Very small bilateral hydroceles. Normal-appearing testicles.
[2021-04-03 09:23] VITALS: BP 164/111; PULSE 114; RESP 18; TEMP 36.8; O2SAT 98
--- NOTE | 2021-04-03 09:55 | ED_ITS ---
HPI - Male Genitourinary General Chief complaint: Urogenital-Male Stated complaint: swelling below waist Time Seen by Provider: 04/03/21 09:26 Source: patient Mode of arrival: ambulatory Limitations: no limitations History of Present Illness HPI Narrative: 25-year-old male with history of anasarca and ascites with q uestion underlying liver disease diabetes on insulin with history of DKA who presents to the ER with scrotal swelling that started 3 days ago. He was seen here in October with lower extremity edema and found to have ascites on CT scan. He was also in DKA and left against medical advice. Hepatitis panel was negative. CT scan showed enlarged liver. Patient reports he had sudden onset of scrotal swelling 3 days ago. It has been worsening each day. He denies any pain but has some discomfort. He has no testicular pain, dysuria, urethral discharge. He does report increase in his lower extremity swelling as well. He states this waxes and wanes and has been worsening for the last couple of weeks. He does not have a GI doctor. He denies alcohol use and reports only using marijuana. He has no known liver disease to his knowledge. MD Complaint: testicle swelling Onset (ago): day(s) Duration: constant Location: right testicle and left testicle Severity: moderate Quality: dull Relieving factors: rest Exacerbating factors: movement Associated symptoms: Reports swelling Related Data Home Medications Medication Instructions Recorded Confirmed amlodipine 5 mg tablet 1 tab PO DAILY 11/13/20 11/13/20 blood sugar diagnostic (FreeStyle 11/13/20 11/13/20 Lite Strips) flash glucose sensor (FreeStyle 11/13/20 11/13/20 Anton 14 Day Sensor) insulin glargine 100 unit/mL (3 30 unit SUBCUT QAM 11/13/20 11/13/20 mL) subcutaneous pen (Lantus Solostar U-100 Insulin) insulin lispro 100 unit/mL See Protocol SUBCUT DIRECTED 11/13/20 11/13/20 subcutaneous pen (Humalog KwikPen (U-100) Insulin) lisinopril 5 mg tablet 0.5 tab PO DAILY 11/13/20 11/13/20 mirtazapine 7.5 mg tablet 1 tab PO BEDTIME 11/13/20 11/13/20 pen needle, diabetic 31 gauge x 11/13/20 11/13/20 3/16 (BD Ultra-Fine Mini Pen Needle) Previous Rx's Medication Instructions Recorded furosemide 20 mg tablet (Lasix) 20 mg PO DAILY #14 tab 04/03/21 Allergies Allergy/AdvReac Type Severity Reaction Status Date / Time No Known Allergies Allergy Verified 04/03/21 09:23 Review of Systems Review of Systems: Constitutional: No Fever, No Chills Cardiovascular: No Chest Pain, No SOB Gastrointestinal: No Nausea, No Vomiting, No Diarrhea, No abdominal Pain Genitourinary: No Dysuria, No Urinary Frequency, No Hematuria, +scrotal pain, No testicular pain Musculoskeletal: No joint pain, No Myalgias Skin: No Skin Lesions, No rash Neuro: No Weakness, No Numbness Heme/Lymph: No Bruising, No Lymphadenopathy Endocrine: No Polyuria, No Polydipsia [facility] Past Medical History Medical History (Updated 04/03/21 @ 11:48 by PRECIOUS Mishra) Cocaine use disorder, mild, in early remission Depression H/O alcohol abuse HTN (hypertension) Paroxysmal A-fib Type 1 diabetes Surgical History H/O laceration repair Social History Social History Patient Tobacco Use Status: Current someday Tobacco user Substance Use Type: Marijuana Advance Directives: No Advance Directives Information Provided: No Physical Exam Vital Signs: Vital Signs: Last Vital Signs Temp 98.3 F 04/03/21 09:23 Pulse 114 H 04/03/21 09:23 Resp 18 04/03/21 09:23 BP 164/111 H 04/03/21 09:23 Pulse Ox 98 04/03/21 09:23 BMI result Body Mass Index 20.0 Appearance: Alert. Oriented X3. No acute distress. Eyes: Pupils equal, round and reactive to light. ENT: Pharynx normal. Neck: Normal inspection. Neck supple. CVS: Normal heart rate and rhythm. Pulses normal. Respiratory: No respiratory distress. Breath sounds normal. Abdomen: Soft and nontender, mild distention, no fluid wave. +BS x4 : Entire scrotum is moderately enlarged, slightly tense. Mild tenderness throughout. No testicular tenderness. No masses palpated. Does transilluminate. Penis is uncircumcised, foreskin retractable. No urethral discharge. Skin: Skin warm and dry. Normal skin color. Normal skin turgor. No rashes. Extremities: 2+ lower extremity edema, pitting. Neuro: Oriented X 3. No motor deficit. No sensory deficit. Course Course Course Narrative: 25-year-old male with a history of anasarca and ascites with possible underlying her liver disease presents to the ER with scrotal swelling and lower extremity edema. No SOB or difficulty breathing. Lungs are clear. Will get scrotal ultrasound and basic lab work as well as urinalysis. Last time he was here in October he did not have a UA done. Question of nephrotic syndrome vs liver etiology. Reevaluation(s) Reevaluation #1: Ultrasound showing scrotal edema with normal appearance of testicles, small hydroceles. Urinalysis showing proteinuria 3+. No baseline. His renal function is normal. His albumin is low. Spoke with Dr. Iqbal from Nephrology who will evaluate the patient in the office. Case was also d/w Dr. Morgan. He agrees with initiation of low-dose Lasix for fluid management. Patient counseled on results of his testing and need for close follow-up with Renal, also recommended follow-up with hepatology. Name and number provided. Stable for DC home with close outpatient follow-up. Consultations Consultation #1: Nephrology - Dr. Iqbal MDM - Male Genitourinary Lab Data Result diagrams: 04/03/21 10:58 04/03/21 10:58 Labs: Lab Results 04/03/21 04/03/21 04/03/21 Range/Units 10: 10:58 10:58 WBC 6.5 (4.8-10.8) X10*3/uL RBC 4.07 L (4.60-5.80) X10*6/uL Hgb 11.9 L (14.0-18.0) g/dl Hct 36.3 L (42.0-52.0) % MCV 89.2 (80.0-98.0) fL MCH 29.2 (27.0-33.0) pg MCHC 32.8 (31.0-36.0) g/dl RDW 14.0 (11.0-16.0) % Plt Count 313 (160-400) X10*3/uL MPV 10.9 (9.4-12.4) fL Immature Gran % (Auto) 0.3 (0.0-0.4) % Neut % (Auto) 63.5 (45-73) % Lymph % (Auto) 27.0 (20-40) % [place] % (Auto) 7.0 (2-11) % Eos % (Auto) 1.6 (0-4) % Baso % (Auto) 0.6 (0-2) % Lymph # (Auto) 1.7 (1.2-4.9) X10*3/uL [place] # (Auto) 0.5 (0.1-1.2) X10*3/uL Eos # (Auto) 0.1 (0.0-0.4) X10*3/uL Baso # (Auto) 0.0 (0.0-0.2) X10*3/uL Abs Immat Gran (auto) 0.02 (0.00-0.03) X10*3/uL Absolute Neuts (auto) 4.1 (2.0-8.3) x10*3/uL Absolute Nucleated RBC 0.000 (0.0-0.012) X10*3/uL Nucleated RBC % (auto) 0.0 (0.0-0.2) /100WBC Sodium 139 (135-145) mmol/L Potassium 4.4 (3.3-5.1) mmol/L Chloride 104 (96-108) mmol/L Carbon Dioxide 29 (22-29) mmol/L Anion Gap 10 L (12-20) BUN 19 H (9-16) mg/dL Creatinine 0.92 (0.5-1.4) mg/dL Estim Creat Clear Calc 92.8 Estimated GFR > 60 POC Glucose 233 H (60-115) mg/dL Random Glucose 241 H D (60-115) mg/dL Calcium 8.8 (8.4-10.2) mg/dL Magnesium 2.1 (1.6-2.6) mg/dL Total Bilirubin 0.3 (0.0-1.0) mg/dL Direct Bilirubin 0.2 (0.0-0.5) mg/dL AST 50 H D (5-37) U/L ALT 48 H (0-40) U/L Alkaline Phosphatase 169 H (39-117) U/L Total Protein 5.6 L (6.5-8.0) g/dL Albumin 2.8 L (3.5-5.0) g/dL Urine Color Urine Appearance Urine pH (5.0-8.0) Ur Specific [place] (1.005-1.025) Urine Protein (NEG-TRACE) MG/DL Urine Glucose (UA) (NEG) MG/DL Urine Ketones (NEG) MG/DL Urine Blood (NEG) Urine Nitrite (NEG) Ur Leukocyte Esterase (NEG) Urine RBC (0) /HPF Urine WBC (0-4) /HPF Ur Squamous Epith Cells /LPF Amorphous Sediment /LPF Urine Bacteria /LPF Urine Mucus /LPF 04/03/21 Range/Units 11:23 WBC (4.8-10.8) X10*3/uL RBC (4.60-5.80) X10*6/uL Hgb (14.0-18.0) g/dl Hct (42.0-52.0) % MCV (80.0-98.0) fL MCH (27.0-33.0) pg MCHC (31.0-36.0) g/dl RDW (11.0-16.0) % Plt Count (160-400) X10*3/uL MPV (9.4-12.4) fL Immature Gran % (Auto) (0.0-0.4) % Neut % (Auto) (45-73) % Lymph % (Auto) (20-40) % [place] % (Auto) (2-11) % Eos % (Auto) (0-4) % Baso % (Auto) (0-2) % Lymph # (Auto) (1.2-4.9) X10*3/uL [place] # (Auto) (0.1-1.2) X10*3/uL Eos # (Auto) (0.0-0.4) X10*3/uL Baso # (Auto) (0.0-0.2) X10*3/uL Abs Immat Gran (auto) (0.00-0.03) X10*3/uL Absolute Neuts (auto) (2.0-8.3) x10*3/uL Absolute Nucleated RBC (0.0-0.012) X10*3/uL Nucleated RBC % (auto) (0.0-0.2) /100WBC Sodium (135-145) mmol/L Potassium (3.3-5.1) mmol/L Chloride (96-108) mmol/L Carbon Dioxide (22-29) mmol/L Anion Gap (12-20) BUN (9-16) mg/dL Creatinine (0.5-1.4) mg/dL Estim Creat Clear Calc Estimated GFR POC Glucose (60-115) mg/dL Random Glucose (60-115) mg/dL Calcium (8.4-10.2) mg/dL Magnesium (1.6-2.6) mg/dL Total Bilirubin (0.0-1.0) mg/dL Direct Bilirubin (0.0-0.5) mg/dL AST (5-37) U/L ALT (0-40) U/L Alkaline Phosphatase (39-117) U/L Total Protein (6.5-8.0) g/dL Albumin (3.5-5.0) g/dL Urine Color YELLOW Urine Appearance CLEAR Urine pH 6.0 (5.0-8.0) Ur Specific [place] >= 1.030 H (1.005-1.025) Urine Protein 3+ H (NEG-TRACE) MG/DL Urine Glucose (UA) 500 H (NEG) MG/DL Urine Ketones NEG (NEG) MG/DL Urine Blood 3+ H (NEG) Urine Nitrite NEG (NEG) Ur Leukocyte Esterase NEG (NEG) Urine RBC 1-4 (0) /HPF Urine WBC 1-4 (0-4) /HPF Ur Squamous Epith Cells NONE /LPF Amorphous Sediment 1+ /LPF Urine Bacteria TRACE /LPF Urine Mucus 1+ /LPF Discharge Plan Discharge Clinical Impression: Anasarca, Scrotal swelling Proteinuria Qualifiers: Proteinuria type: unspecified Qualified Code(s): R80.9 - Proteinuria, un specified Patient Disposition: Home, Self-Care Instructions: Leg Edema (ED), Edema (ED) Additional Instructions: Take the prescribed diuretic pill to help with your swelling and edema. For your scrotum, recommend elevating it with a towel underneath to help drain the fluid. Elevate your legs whenever possible to help with fluid retention. Recommend decreasing your salt intake. Adjust her insulin as needed to obtain tight glucose control. Follow-up with your primary care doctor this week. Your urine test showed protein in your urine, you need to follow up with a kidney doctor for this. They will be calling you to arrange an appointment, name and number of the office as below. You also had some mild elevation of your liver tests, recommend following up with a liver specialist as well. Name and number below. Prescriptions: New furosemide [Lasix] 20 mg tablet 20 mg PO DAILY Qty: 14 RF: 0 No Action (DME) FreeStyle Lite Strips Strip MISCELLANEOUS QID RF: 0 amlodipine 5 mg tablet 1 tab PO DAILY RF: 0 lisinopril 5 mg tablet 0.5 tab PO DAILY RF: 0 insulin lispro [Humalog KwikPen Insulin] 100 unit/mL insulin pen See Protocol unit subcut DIRECTED RF: 0 mirtazapine 7.5 mg tablet 1 tab PO BEDTIME RF: 0 (DME) pen needle, diabetic [BD Ultra-Fine Mini Pen Needle] 31 gauge x 3/16 needle subcut RF: 0 Lantus Solostar U-100 Insulin 100 unit/mL (3 mL) insulin pen 30 unit subcut QAM RF: 0 (DME) FreeStyle Anton 14 Day Sensor Kit topical RF: 0 Referrals: Maira Suarez MD [Physician] - 1 week (Ascites no known liver disease.) Leighton Kilpatrick MD [Physician] - 1 week (Proteinurea, anasarca) Interventions: ED Discharge Assessment Last Done: 04/03/21 12:48
[2021-04-03 10:26] LABS: Glucose, Whole Blood 233 mg/dL (60-115)
[2021-04-03 11:07] LABS: MANUAL DIFF FLAG NO
[2021-04-03 11:10] LABS: Basophils Percent Auto 0.6 % (0-2); Eosinophils Absolute Auto 0.1 X10*3/uL (0.0-0.4); Eosinophils Percent Auto 1.6 % (0-4); Hematocrit 36.3 % (42.0-52.0); Hemoglobin 11.9 g/dl (14.0-18.0); Imm Gran Abs Auto 0.02 X10*3/uL (0.00-0.03); Imm Gran Pct Auto 0.3 % (0.0-0.4); Lymphocytes Absolute Auto 1.7 X10*3/uL (1.2-4.9); Mean Corpuscular HGB Conc 32.8 g/dl (31.0-36.0); Mean Corpuscular Hemoglobin 29.2 pg (27.0-33.0); Mean Corpuscular Volume 89.2 fL (80.0-98.0); Mean Platelet Volume 10.9 fL (9.4-12.4); Monocytes Absolute Auto 0.5 X10*3/uL (0.1-1.2); Neutrophils Absolute Auto 4.1 x10*3/uL (2.0-8.3); Neutrophils Percent Auto 63.5 % (45-73); Platelet Count 313 X10*3/uL (160-400); Red Blood Count 4.07 X10*6/uL (4.60-5.80); White Blood Count 6.5 X10*3/uL (4.8-10.8)
[2021-04-03 11:27] LABS: Alanine Aminotransferase 48 U/L (0-40); Albumin Level 2.8 g/dL (3.5-5.0); Alkaline Phosphatase 169 U/L (39-117); Anion Gap 10 (12-20); Aspartate Amino Transferase 50 U/L (5-37); Bilirubin Direct 0.2 mg/dL (0.0-0.5); Bilirubin Total 0.3 mg/dL (0.0-1.0); Blood Urea Nitrogen 19 mg/dL (9-16); Calcium 8.8 mg/dL (8.4-10.2); Carbon Dioxide 29 mmol/L (22-29); Chloride 104 mmol/L (96-108); Creatinine Clr Calc Pharmacy 92.8; Estimated Glomerular Filt Rate > 60; Glucose Random 241 mg/dL (60-115); Magnesium 2.1 mg/dL (1.6-2.6); Potassium 4.4 mmol/L (3.3-5.1); Sodium 139 mmol/L (135-145); Total Protein 5.6 g/dL (6.5-8.0)
[2021-04-03 11:33] LABS: Appearance Urine CLEAR; Color Urine YELLOW; Glucose Urine UA 500 MG/DL (NEG); Leukocyte Esterase Urine NEG (NEG); Nitrite Urine NEG (NEG); Specific Gravity - Urine >= 1.030 (1.005-1.025); UACC Culture Trigger NO; Urine Blood 3+ (NEG); Urine Ketones NEG (NEG); Urine Protein 3+ MG/DL (NEG-TRACE)
[2021-04-03 11:43] LABS: Bacteria Urine TRACE /LPF; Mucus Urine 1+ /LPF
[2021-04-03 11:44] LABS: Amorphous Sediment Urine 1+ /LPF
[2021-04-03 13:38] LABS: CT PCR NOT DETECTED (Not Detect.); NG PCR NOT DETECTED (Not Detect.)
== END 2021-04-03 13:00 | disposition home or self-care (01) ==
PROVIDERS: Physician Assistant; Emergency Provider Emergency Medicine; PCP Internal Medicine
DX: R80.9 Proteinuria, unspecified (principal); R60.0 Localized edema; N50.89 Other specified disorders of the male genital organs; F17.200 Nicotine dependence, unspecified, uncomplicated; Z71.6 Tobacco abuse counseling; Z79.899 Other long term (current) drug therapy
CPT/HCPCS: 36415; 76870; 80048; 80076; 81001; 82947; 83735; 85025; 87491; 87591; 93975; 99284

== ENCOUNTER 2022-06-20 13:45 | Outpatient (RCR) | payer MEDICAID, SELFPAY ==
--- NOTE | ~2022-06-20 | XR_ITS ---
EXAMINATION: XR KNEE, RIGHT CLINICAL INFORMATION: Nonhealing wound COMPARISON: None available. TECHNIQUE: Three views of the right knee. FINDINGS: Bone alignment is normal. No fracture or dislocation. Normal joint spaces. No joint effusion. Normal soft tissues. XR/XR knee RT 3V IMPRESSION: Unremarkable exam.
== END 2022-12-04 12:11 | disposition home or self-care (01) ==
LOC: HO.WCC 13:45
PROVIDERS: Visit Provider Surgery
DX: E10.622 Type 1 diabetes mellitus with other skin ulcer (principal); L97.812 Non-pressure chronic ulcer of other part of right lower leg with fat layer exposed; I11.0 Hypertensive heart disease with heart failure; I50.9 Heart failure, unspecified
CPT/HCPCS: 11042; 73562; 88304; 88305

== ENCOUNTER 2022-10-25 10:34 | Outpatient (REF) | payer MEDICAID, SELFPAY ==
[2022-10-25 13:44] LABS: Estimated Average Glucose 278 mg/dL; Hemoglobin A1c % 11.3 %
== END 2022-10-25 10:35 | disposition home or self-care (01) ==
LOC: HO.HHCL 10:34
PROVIDERS: Visit Provider Nurse Practitioner Family
DX: E10.69 Type 1 diabetes mellitus with other specified complication (principal); E10.65 Type 1 diabetes mellitus with hyperglycemia; E87.0 Hyperosmolality and hypernatremia
CPT/HCPCS: 36415; 83036

== ENCOUNTER 2022-11-19 10:03 | Emergency (ER) | payer MEDICAID, SELFPAY ==
--- NOTE | ~2022-11-19 | XR_ITS ---
EXAMINATION: XR CHEST CLINICAL INFORMATION: Shortness of breath, right pleural effusion and right upper quadrant ultrasound COMPARISON: 11/19/2022 ultrasound TECHNIQUE: 2 views of the chest were obtained. FINDINGS: Cardiac silhouette appears more enlarged and globular than on previous studies. No vascular congestion, consolidations or effusions. Bony structures are intact. XR/XR chest 2V IMPRESSION: No identifiable pleural effusions as questioned on same day ultrasound. Enlarging globular cardiac silhouette, pericardial effusion not excluded. Correlate clinically, consider echocardiogram.
--- NOTE | ~2022-11-19 | US_ITS ---
EXAMINATION: US ABDOMEN LIMITED CLINICAL INFORMATION: Right upper quadrant pain and tenderness. COMPARISON: CT scan of the abdomen and pelvis dated 11/12/2020. TECHNIQUE: Real-time imaging of the right upper quadrant abdominal viscera. FINDINGS: PANCREAS: Visualized portions unremarkable. LIVER: No focal hepatic abnormality. Trace perihepatic fluid. GALLBLADDER: Mildly distended with fold at the fundus. No intraluminal abnormality. Mild pericholecystic fluid. COMMON BILE DUCT: Normal in caliber measuring 0.2 cm in diameter. RIGHT KIDNEY: 11.1 cm. Unremarkable. FREE FLUID: None. Right pleural effusion. US/US abdomen limited IMPRESSION: 1. Trace perihepatic and pericholecystic fluid correlates with previous CT findings. The gallbladder is otherwise unremarkable. If right upper quadrant symptoms persist or worsen, short-term repeat right upper quadrant ultrasound is recommended as clinically indicated to assess for change. 2. Right pleural effusion appears to represent interval increase from the previous CT scan. Follow-up with PA and lateral views of the chest recommended.
[2022-11-19 10:10] VITALS: BP 137/89; PULSE 66; RESP 14; TEMP 36.7; O2SAT 99; BMI 28.5
--- NOTE | 2022-11-19 10:30 | ED_ITS ---
HPI - Abdominal Pain General Chief Complaint: Abdominal Pain Stated Complaint: Gallbladder issues sent by PCP Time Seen by Provider: 11/19/22 10:23 Source: patient Mode of arrival: ambulatory Limitations: no limitations History of Present Illness HPI narrative: 27 yo male with PMHx of HTN, paroxysmal afib, T1DM, ascites, anasarca, depression, etoh and cocaine use disorder (reports sobriety x1 year) presents to the ED today with a complaint of N/V, generalized weakness, body aches, and RUQ pain x5 days. Pain is non radiating and cramping in nature. Reports 2 episodes of nonbloody vomiting this am. Patient reports recent diagnosis of gallbladder wall thickening via PCP, sent here for further work up. Denies fever, chills, CP/ SOB, diarrhea, constipation, back pain, hematuria, dysuria. No sick contacts. Last ETOH drink was 1 week ago. Denies recent drug use, last used cocaine >1 yr ago. No sick contacts. He also reports he has been more SOB lately. No orthopnea. No LE swelling. MD elicited complaint: abdominal pain Onset (ago): day(s) (5) Pain Consistency: intermittent Location: RUQ Severity: moderate Quality: cramping Radiation: none Migration to: no migration Exacerbating factors: nothing Relieving factors: nothing Context: history of similar episodes Associated symptoms: nausea and vomiting Related Data Home Medications Medication Instructions Recorded Confirmed amlodipine 5 mg tablet 1 tab PO DAILY 11/13/20 11/13/20 blood sugar diagnostic (FreeStyle 11/13/20 11/13/20 Lite Strips) flash glucose sensor (FreeStyle 11/13/20 11/13/20 Anton 14 Day Sensor kit) insulin glargine 100 unit/mL (3 30 unit subcut QAM 11/13/20 11/13/20 mL) subcutaneous pen (Lantus Solostar U-100 Insulin) insulin lispro 100 unit/mL See Protocol subcut DIRECTED 11/13/20 11/13/20 subcutaneous pen (Humalog KwikPen (U-100) Insulin) lisinopril 5 mg tablet 0.5 tab PO DAILY 11/13/20 11/13/20 mirtazapine 7.5 mg tablet 1 tab PO BEDTIME 11/13/20 11/13/20 pen needle, diabetic 31 gauge x 11/13/20 11/13/20 3/16 (BD Ultra-Fine Mini Pen Needle) Previous Rx's Medication Instructions Recorded furosemide 20 mg tablet (Lasix) 20 mg PO DAILY #14 tabs 04/03/21 dicyclomine 20 mg tablet 20 mg PO TID PRN abdominal pain 11/19/22 #14 tabs ondansetron 4 mg disintegrating 4 mg PO Q8H PRN nausea and 11/19/22 tablet vomiting #7 tabs Allergies Allergy/AdvReac Type Severity Reaction Status Date / Time No Known Allergies Allergy Verified 04/03/21 09:23 Review of Systems Review of Systems Yes all other systems are reviewed and are negative [facility] Past Medical History Attestation statement: The following information was validated with the patient. Source: old records reviewed and nursing notes reviewed Medical History Cocaine use disorder, mild, in early remission Depression H/O alcohol abuse HTN (hypertension) Paroxysmal A-fib Type 1 diabetes Surgical History H/O laceration repair Social History Social History Patient Tobacco Use Status: Current someday Tobacco user Smoked in Last 30 Days: No Use of substances other than those prescribed or required for medical reasons: No Substance Use Type: Marijuana Advance Directives: No Advance Directives Information Provided: No Physical Exam ED Vital Signs: Vital Signs - 24 hr 11/19/22 10:10 11/19/22 11:13 11/19/22 12:48 Temperature 98.1 F 98 F 97.7 F Pulse Rate 66 67 68 Respiratory Rate 14 16 20 Blood Pressure 137/89 138/89 132/94 H Pulse Oximetry 99 100 98 Oxygen Delivery Method Room Air Room Air Room Air 11/19/22 14:43 Temperature 97.9 F Pulse Rate 68 Respiratory Rate 20 Blood Pressure 149/108 H Pulse Oximetry 94 Oxygen Delivery Method Room Air BMI result Body Mass Index 28.5 Appearance: Alert. Oriented X3. No acute distress. Head: normocephalic, atraumatic. Eyes: Pupils equal, round and reactive to light. No icterus ENT: Pharynx normal. No tonsillar swelling or exudate. Poor dentition Neck: Normal inspection. Neck supple. CVS: Normal heart rate and rhythm. Pulses normal. Respiratory: No respiratory distress. Breath sounds normal. Abdomen: Multiple small scars noted to abdomen. Soft, diffusely distended, mildly tender to palpation to the RLQ without rebound tenderness or guarding. +BS x4 Skin: Skin warm and dry. Normal skin color. Normal skin turgor. chronic hyperpigmented lesions scattered throughout Extremities: No lower extremity edema. No joint swelling. Neuro/psych: Oriented X 3. No motor deficit. No sensory deficit. CN II-XII intact. Normal speech and cognition. Medical Decision Making Medical Decision Making MDM Narrative: 27 yo male with PMHx of HTN, paroxysmal afib, T1DM, ascites, anasarca, depression, etoh and cocaine use disorder presents to the ED today with a complaint of N/V, generalized weakness, body aches, and RUQ pain x days. Vital signs stable. Patient nontoxic appearing, in NAD. Multiple small scars noted to abdomen. Abdomen soft, distended, mildly tender to palpation to the RLQ and RLQ without rebound tenderness or guarding. +BS x4 Plan: labs, UDS, UA, US abd Multiple failed attempts at obtaining labs were made by ED techs and nurses due to inability to find a vein. US guided IV was attempted by myself and Dr. Drummond > line established and labs obtained. Pain control, antiemetics and IVF ordered. RUQ abdominal ultrasound without evidence of acute cholecystitis however shows increased R-side pleural effusion when compared to previous imaging. On reevaluation, patient now reporting shortness of breath > CXR ordered did not show large pleural effusion. oxygenating well. CXR silhouette compared from 2020 and it appears similar. no muffled heart sounds. Re-evaluated after meds - tolerating PO and feeling better. K 5.9 w/ slight hemolysis. no need to repeat. encouraged oral hydration. at this time no indication for admission. patient can follow up with GI and PCP. return precautions were discussed. stable for d/c home. case d/w Dr. Silva Differential Diagnosis Differential Diagnoses: The differential diagnosis associated with the presentation includes cholecystitis, cholelithiasis, cholangitis, hepatitis, cirrhosis, pancreatitis, gastroparesis, low suspicion for ACS, appendicitis, acute abdomen, obstruction, ichemic bowel, diverticulitis Admission/Observation Consideration of admission/observation: Escalation of care including admission/observation considered N/V/D and abd pain, considered obs/admit Lab Data MDM Lab Attestation statement: I reviewed the patient's lab results. k w/ hemolysis LFTs chronically elevated. mild GINA 11/19/22 12:31 11/19/22 12:31 Labs: Lab Results 11/19/22 11/19/22 Range/Units 12:31 12:31 WBC 7.5 (4.8-10.8) X10*3/uL RBC 3.75 L (4.60-5.80) X10*6/uL Hgb 10.1 L (14.0-18.0) g/dl Hct 34.0 L (42.0-52.0) % MCV 90.7 (80.0-98.0) fL MCH 26.9 L (27.0-33.0) pg MCHC 29.7 L (31.0-36.0) g/dl RDW 18.2 H (11.0-16.0) % Plt Count 599 H D (160-400) X10*3/uL MPV 10.5 (9.4-12.4) fL Immature Gran % (Auto) 0.4 (0.0-0.4) % Neut % (Auto) 67.1 (45-73) % Lymph % (Auto) 19.8 L (20-40) % Wythe % (Auto) 9.8 (2-11) % Eos % (Auto) 1.7 (0-4) % Baso % (Auto) 1.2 (0-2) % Lymph # (Auto) 1.5 (1.2-4.9) X10*3/uL Wy[place] # (Auto) 0.7 (0.1-1.2) X10*3/uL Eos # (Auto) 0.1 (0.0-0.4) X10*3/uL Baso # (Auto) 0.1 (0.0-0.2) X10*3/uL Abs Immat Gran (auto) 0.03 (0.00-0.03) X10*3/uL Absolute Neuts (auto) 5.1 (2.0-8.3) x10*3/uL Absolute Nucleated RBC 0.000 (0.0-0.012) X10*3/uL Nucleated RBC % (auto) 0.0 (0.0-0.2) /100WBC Sodium 141 (135-145) mmol/L Potassium 5.9 H D (3.3-5.1) mmol/L Chloride 110 H (96-108) mmol/L Carbon Dioxide 25 (22-29) mmol/L Anion Gap 12 (12-20) BUN 30 H (9-16) mg/dL Creatinine 1.57 H (0.5-1.4) mg/dL Estim Creat Clear Calc 66.7 Estimated GFR 52 Random Glucose 118 H (60-115) mg/dL Calcium 8.2 L D (8.4-10.2) mg/dL Magnesium 2.0 (1.6-2.6) mg/dL Total Bilirubin 0.3 (0.0-1.0) mg/dL Direct Bilirubin 0.1 (0.0-0.5) mg/dL AST 86 H (5-37) U/L ALT 80 H (0-40) U/L Alkaline Phosphatase 248 H (39-117) U/L Total Protein 6.3 L (6.5-8.0) g/dL Albumin 2.5 L (3.5-5.0) g/dL Lipase 5 L (8-78) U/L Ethyl Alcohol < 10 mg/dL Independent Interpretation I performed an independent interpretation of an: Plain X-Ray and Ultrasound Interpretation: RUQ US showing perihepatic and pericholecystic fluid, no evidence of GB wall thickening or stones > agree with radiologist's interpretation. CXR with clear lungs. compared to prior heart appears similar in appearance Radiology Impression Discussion of test interpretation with radiology: I have reviewed the radiologist's reading. Radiologist Impression: US abdomen limited IMPRESSION: 1.? Trace perihepatic and pericholecystic fluid correlates with previous CT findings. The gallbladder is otherwise unremarkable. If right upper quadrant symptoms persist or worsen, short-term repeat right upper quadrant ultrasound is recommended as clinically indicated to assess for change. 2.? Right pleural effusion appears to represent interval increase from the previous CT scan. Follow-up with PA and lateral views of the chest recommended. EXAMINATION: XR CHEST CLINICAL INFORMATION: Shortness of breath, right pleural effusion and right upper quadrant ultrasound COMPARISON: 11/19/2022 ultrasound TECHNIQUE: 2 views of the chest were obtained. FINDINGS: Cardiac silhouette appears more enlarged and globular than on previous studies. No vascular congestion, consolidations or effusions. Bony structures are intact. XR/XR chest 2V IMPRESSION: No identifiable pleural effusions as questioned on same day ultrasound. Enlarging globular cardiac silhouette, pericardial effusion not excluded. Correlate clinically, consider echocardiogram. External Record Review External record reviewed: Inpatient record, Outpatient record, Prior outpatient labs and Prior outpatient radiology Tests considered The following testing was considered but not selected: CT scan abd/pelvis considered Prescription Management I considered prescription management with: Pain Medication and Other (antiemetic) Chronic Conditions Patient?s care impacted by: Diabetes, Hypertension and Other (former etoh) Medications Administered Discontinued Medications Generic Name Dose Route Start Last Admin Trade Name Freq PRN Reason Stop Dose Admin Sodium Chloride 1,000 mls @ 999 mls/hr 11/19/22 12:45 11/19/22 12:52 Ns IVCONT 11/19/22 13:45 999 mls/hr .Q1H1M ADRIANA Administration Ketorolac Tromethamine 15 mg 11/19/22 12:31 11/19/22 12:52 Ketorolac Tromethamine 15 Mg/Ml Vial IVPUSH 11/19/22 12:32 15 mg ONCE ONE Administration Ondansetron HCl 4 mg 11/19/22 12:31 11/19/22 12:52 Ondansetron Hcl 4 Mg/2 Ml Vial IVPUSH 11/19/22 12:32 4 mg ONCE ONE Administration Critical Care Time Critical Care Time Critical Care Time: Yes Total Critical Care Time: 35 Attestation: I have personally provided critical care time exclusive of time spent on separately billable procedures. Time includes review of lab data, radiology results, frequent bedside re-evaluation, and monitoring for potential decompensation. Intervention performed as documented. Discharge Plan Discharge Clinical Impression: Gastroenteritis, Abdominal pain, GINA (acute kidney injury), Ascites Patient Disposition: Home, Self-Care Instructions: Acute Kidney Injury (DC), Gastroenteritis (DC) Additional Instructions: Your lab workup today showed chronic elevation of your liver enzymes. Your ultrasound did not show any evidence of gallbladder infection or stones. You had some mild dehydration and abnormal kidney function on lab work. Recommend plenty of oral hydration, drink plenty of water for the next few days. Stick to a bland diet where not feeling well. Take the prescribed medications as directed. Recommend following up with GI for further evaluation and treatment. Follow-up with your primary care doctor. If you develop new or worsening symptoms call 911 or come back to the ER for further evaluation. Prescriptions: New ondansetron 4 mg tablet,disintegrating 4 mg PO Q8H PRN (Reason: nausea and vomiting) Qty: 7 0RF dicyclomine 20 mg tablet 20 mg PO TID PRN (Reason: abdominal pain) Qty: 14 0RF No Action (DME) FreeStyle Lite Strips Strip MISCELLANEOUS QID amlodipine 5 mg tablet 1 tab PO DAILY lisinopril 5 mg tablet 0.5 tab PO DAILY insulin lispro [Humalog KwikPen Insulin] 100 unit/mL insulin pen See Protocol subcut DIRECTED Protocol: Insulin Correction Scale Less than or equal to 110 ---- Give (units): 0 111 to 150 Give (units): 0 151 to 200 Give (units): 2 201 to 250 Give (units): 4 251 to 300 Give (units): 6 301 to 350 Give (units): 8 Greater than 350 Give (units): 10 Call MD if Blood Glucose > : 350 mirtazapine 7.5 mg tablet 1 tab PO BEDTIME (DME) pen needle, diabetic [BD Ultra-Fine Mini Pen Needle] 31 gauge x 3/16 needle subcut Lantus Solostar U-100 Insulin 100 unit/mL (3 mL) insulin pen 30 unit subcut QAM (DME) FreeStyle Anton 14 Day Sensor Kit topical furosemide [Lasix] 20 mg tablet 20 mg PO DAILY Qty: 14 0RF Referrals: [facility] – [place] [facility] [Provider Group] (RUQ pain, ascites, chronic LFT elevation but not cirrhotic, former ETOH) Trent Hobbs [Emergency Nurse] -
[2022-11-19 11:13] VITALS: BP 138/89; PULSE 67; RESP 16; TEMP 36.6; O2SAT 100
--- NOTE | 2022-11-19 11:17 | PC.NURSE ---
pt reports R. sided abd. pain x 1 day; denies diarrhea/cp/sob; reports n/v. tenderness noted R. abd. no distention. +bs x4; last bm yesterday. vss. awaiting imaging; call mejia within reach.
--- NOTE | 2022-11-19 11:41 | PC.NURSE ---
pt difficult stick for IV/blood work; 3x attempts. Marla LANG aware.
[2022-11-19 12:37] LABS: MANUAL DIFF FLAG NO
[2022-11-19 12:44] LABS: Basophils Absolute Auto 0.1 X10*3/uL (0.0-0.2); Basophils Percent Auto 1.2 % (0-2); Eosinophils Absolute Auto 0.1 X10*3/uL (0.0-0.4); Eosinophils Percent Auto 1.7 % (0-4); Hemoglobin 10.1 g/dl (14.0-18.0); Imm Gran Abs Auto 0.03 X10*3/uL (0.00-0.03); Imm Gran Pct Auto 0.4 % (0.0-0.4); Lymphocytes Absolute Auto 1.5 X10*3/uL (1.2-4.9); Lymphocytes Percent Auto 19.8 % (20-40); Mean Corpuscular HGB Conc 29.7 g/dl (31.0-36.0); Mean Corpuscular Hemoglobin 26.9 pg (27.0-33.0); Mean Corpuscular Volume 90.7 fL (80.0-98.0); Mean Platelet Volume 10.5 fL (9.4-12.4); Monocytes Absolute Auto 0.7 X10*3/uL (0.1-1.2); Monocytes Percent Auto 9.8 % (2-11); Neutrophils Absolute Auto 5.1 x10*3/uL (2.0-8.3); Neutrophils Percent Auto 67.1 % (45-73); Platelet Count 599 X10*3/uL (160-400); Red Blood Count 3.75 X10*6/uL (4.60-5.80); Red Cell Distribution Width 18.2 % (11.0-16.0); White Blood Count 7.5 X10*3/uL (4.8-10.8)
[2022-11-19 12:48] VITALS: BP 132/94; PULSE 68; RESP 20; TEMP 36.5; O2SAT 98
[2022-11-19] MEDS: Ketorolac Tromethamine 15 MG/ML VIAL IVPUSH (12:52)
[2022-11-19] MEDS: ondansetron HCL 4 MG/2 ML VIAL IVPUSH (12:52)
[2022-11-19] MEDS: 0.9 % Sodium Chloride 1,000 ML 999 ML IVCONT (12:52)
[2022-11-19 13:03] LABS: Alanine Aminotransferase 80 U/L (0-40); Albumin Level 2.5 g/dL (3.5-5.0); Alkaline Phosphatase 248 U/L (39-117); Anion Gap 12 (12-20); Aspartate Amino Transferase 86 U/L (5-37); Bilirubin Direct 0.1 mg/dL (0.0-0.5); Bilirubin Total 0.3 mg/dL (0.0-1.0); Blood Urea Nitrogen 30 mg/dL (9-16); Calcium 8.2 mg/dL (8.4-10.2); Carbon Dioxide 25 mmol/L (22-29); Chloride 110 mmol/L (96-108); Creatinine Clr Calc Pharmacy 66.7; Estimated Glomerular Filt Rate 52; Ethanol < 10 mg/dL; Glucose Random 118 mg/dL (60-115); Lipase 5 U/L (8-78); Potassium 5.9 mmol/L (3.3-5.1); Sodium 141 mmol/L (135-145); Total Protein 6.3 g/dL (6.5-8.0)
--- NOTE | 2022-11-19 13:08 | PC.NURSE ---
u/s guided iv established by provider. labs drawn. ivf infusing. pt medicated per mar. all needs met at this time; call mejia within reach.
[2022-11-19 14:43] VITALS: BP 149/108; PULSE 68; RESP 20; TEMP 36.6; O2SAT 94
--- NOTE | 2022-11-19 14:48 | PC.NURSE ---
iv infiltrated; 900mL ivf remaining; PA aware d/c fluids. iv removed. pt tolerating po intake well; no n/v per pt.
[2022-11-20 08:29] LABS: HBS Num1 > 1000.00 mIU/mL (0-7.99); HBc Num1 0.09 S/CO (0.00-0.79); HBsAGNum1 0.36 S/CO (0.00-0.99); Hepatitis A Antibody IgM 0.32 Index (0-0.79); Hepatitis B Core Antibody Nonreactive (Nonreactive); Hepatitis B Surface Antigen Negative (Negative); ~HepC Num1 0.07 S/CO (0.00-0.79); ~Hepatitis A Antibody IgM Nonreactive (Nonreactive); ~Hepatitis B Surface Antibody REACTIVE (Nonreactive); ~Hepatitis C Antibody Nonreactive (Nonreactive)
== END 2022-11-19 15:11 | disposition home or self-care (01) ==
PROVIDERS: Physician Assistant; Emergency Provider Student in an Organized Health Care Education/Training Program; PCP Nurse Practitioner Family
DX: K52.9 Noninfective gastroenteritis and colitis, unspecified (principal); R06.02 Shortness of breath; J90 Pleural effusion, not elsewhere classified; R10.11 Right upper quadrant pain; R11.2 Nausea with vomiting, unspecified; R18.8 Other ascites; Z79.899 Other long term (current) drug therapy; Z79.4 Long term (current) use of insulin; F17.200 Nicotine dependence, unspecified, uncomplicated; Z71.6 Tobacco abuse counseling
CPT/HCPCS: 36415; 71046; 76705; 80048; 80076; 80307; 83690; 83735; 85025; 86704; 86706; 86709; 86803; 87340; 96361; 96374; 96375; 99284; 99285; J1885; J2405

== ENCOUNTER 2022-12-26 08:24 | Outpatient (RCR) | payer MEDICAID, MEDICARE, OTHER, SELFPAY | END 2023-10-13 13:52 | disposition other institution (70) | LOC: HO.WCC 08:24 | PROVIDERS: PCP Nurse Practitioner Family; Visit Provider Surgery | DX: E10.622 Type 1 diabetes mellitus with other skin ulcer (principal); L89.899 Pressure ulcer of other site, unspecified stage; I11.0 Hypertensive heart disease with heart failure; I50.9 Heart failure, unspecified; D63.8 Anemia in other chronic diseases classified elsewhere; K70.31 Alcoholic cirrhosis of liver with ascites | CPT/HCPCS: 11042; 11045 ==

== ENCOUNTER 2023-06-01 23:59 | Outpatient (BNV) | payer OTHER, MEDICAID, SELFPAY | END 2023-06-04 23:59 | PROVIDERS: PCP Nurse Practitioner Family; Visit Provider Internal Medicine | DX: I47.10 Supraventricular tachycardia, unspecified (principal); I42.9 Cardiomyopathy, unspecified | CPT/HCPCS: 99223 ==

== ENCOUNTER 2025-01-27 13:03 | Outpatient (AMB) | payer OTHER, SELFPAY ==
--- NOTE | 2025-01-27 13:09 | A.OFFVIS_ITS ---
Vital Signs 3 01/27/25 13:14 Height 5 ft 5 in Weight 145 lb 8.081 oz BMI 24.2 BP 146/90 H Blood Pressure Location Rt brachial Position Sitting Pulse 105 H Pulse Source Pulse Oximeter Pulse Oximetry (%) 98 Oxygen Delivery Method Room Air Intake Visit Reasons: Type 1 DM Intake Note: NEW Patient presents today to establish treatment for Type 1 Diabetes Mellitus: Last Diabetic eye exam was on: 12/2024, [facility] Last Podiatry exam was on: Patient does not see a Battery Charger Tester Most recent HbA1c: 9.8%, 11/12/2024, test completed at PCP Random Glucose: 308 mg/dL L Geospatial Information Scientist Required: No Accompanied by: Mother Allergies No Known Allergies Allergy (Verified 01/27/25 13:16) Medication List - Last Reconciled 01/27/25 by Ora Umaña MD amlodipine 1 tab PO DAILY apixaban (Eliquis) 5 mg PO BID atorvastatin 80 mg PO DAILY blood sugar diagnostic (FreeStyle Lite Strips) blood sugar diagnostic (FreeStyle Lite Strips) As directed to check BG 3-4x/day blood-glucose meter (FreeStyle Lite Meter kit) As directed for BG checks carvedilol 25 mg PO BID dicyclomine 20 mg PO TID PRN gabapentin 100 mg PO DAILY insulin glargine (Lantus Solostar U-100 Insulin) 12 units subcut QAM insulin lispro (Humalog KwikPen (U-100) Insulin) See Protocol units subcut DIRECTED lancets (Pure Comfort Safety Lancets) As directed for BG checks 3-4 times per day mirtazapine 30 mg PO BEDTIME ondansetron 4 mg PO Q8H PRN pantoprazole 40 mg PO DAILY pen needle, diabetic As directed to inject insulin 3-5 times per day sacubitril-valsartan 24-26 mg tabs PO sodium chlor-hypochlorous acid 0.033 % (Vashe) 1 irrig irrigation Q3-4H PRN torsemide mg PO HPI Comments Details: 29 years old male with past medical history of type 1 diabetes, hypertension, cocaine use disorder in remission, seen in the office for evaluation of type 1 diabetes. Diagnosed: Type 1 diabetes mellitus, diagnosed at age 3. Most recent DKA admission was two weeks ago, triggered by excessive intake of sweets. Current medication: Lantus 12 units every morning Humalog sliding scale (patient did not bring scale details to visit) Libre3 CGM (inconsistent use due to refill issues) Previous medication: No prior use of insulin pump; has never been offered. No other previous diabetes medications reported. Blood sugar: Typically in the 200s in the morning; variable throughout the day depending on food intake. No recent sensor or meter data available at visit. Hypoglycemia: Rare; not frequent. When it occurs, treated with juice, candy, or fruit. Macrovascular/microvascular complications: Macrovascular: History of cardiac insufficiency (blood clots in the heart), post-NE, on chronic dialysis (secondary to kidney injury from substance abuse per his report) Microvascular: Reports numbness/tingling in feet (possible peripheral neuropathy). No recent eye or foot exam data available. Diet: Breakfast: Scrambled eggs, toast, coffee, hash browns Lunch: Fast food ([employer], [employer], [employer]) Dinner: Rice, meat, Sudanese food cooked at home Snacks: Multiple times per day, frequent sweets Drinks: No soda, but drinks large amounts of juice Does not count carbohydrates; pending burner hand referral Eye doctor: No recent ophthalmology follow-up reported. Podiatry: No recent podiatry follow-up reported; reports neuropathic symptoms in feet. Review of Systems General: No fever, no recent weight loss or gain. Endocrine: Poor glycemic control, frequent hyperglycemia, rare hypoglycemia. Cardiovascular: History of cardiac insufficiency, blood clots in the heart; no current chest pain or palpitations. Respiratory: No cough or shortness of breath. Gastrointestinal: Recent nausea and vomiting during DKA episode; otherwise negative. Genitourinary: On chronic dialysis; no new urinary symptoms. Neurological: Reports numbness/tingling in feet. Musculoskeletal: No new joint or muscle pain. Skin: No new rashes or ulcers. Psychiatric: Reports anxiety. Other: No recent infections. Physical exam General: Well appearing. NAD. Not Cushingoid or Acromegalic Neck/Thyroid: Thyroid not palpable, no nodules. CV: RRR, no murmur. No edema. Resp:Lungs clear to auscultation bilaterally Abdomen: Soft, nontender. nondistended Extremities/Neuro: No weakness or tremor of outstretched hands Diabetic Foot Exam: Normal sensation to monofilament exam bilaterally Laboratory Tests 01/27/25 13:20 Glucose (Clinic) 308 H [facility] Medical History H/O alcohol abuse Depression Paroxysmal A-fib Cocaine use disorder, mild, in early remission HTN (hypertension) Type 1 diabetes Surgical History H/O laceration repair Family History Father No problems noted. Mother No problems noted. Maternal Grandfather Diabetes mellitus Social History Patient Tobacco Use Status: Current someday Tobacco user Substance Use Type: Marijuana Physical Exam Vital Signs: Last Vital Signs Pulse 105 H 01/27/25 13:14 BP 146/90 H 01/27/25 13:14 Pulse Ox 98 01/27/25 13:14 Oxygen Delivery Method Room Air 01/27/25 13:14 BMI result Body Mass Index 24.2 Results Reviewed Results Reviewed: Laboratory Last Values Glucose (Clinic) 308 mg/dL (60-115) H 01/27/25 13:20 Assessment & Plan Assessment & Plan (1) Type 1 diabetes mellitus with hyperglycemia: Code(s): E10.65 - Type 1 diabetes mellitus with hyperglycemia Category: Medical Plan: Type 1 diabetes mellitus, poorly controlled, with recurrent DKA and significant barriers to optimal management (diet, inconsistent CGM use, lack of structured insulin regimen, no prior pump therapy, poor medical literacy). Patient could not bring any sensor so we can not estimate his control, and given that he has ESRD, A1c measurement is not reliable, hence she was not done during that visit. We did provide this patient with the sensor and prescriptions for the sensors so next time we can better understand his diabetic control and adjust his insulin dosing as needed. Plan Increase Lantus dose to 18 units Provide a structured sliding scale for Humalog, adjusted for meal carbohydrate content. Refer to perinatal educator for comprehensive education on carbohydrate counting, insulin administration, and sick day management. Initiate process for insulin pump therapy Ensure consistent access to CGM sensors (Libre3) Educate on home ketone monitoring, especially during hyperglycemia (>250 mg/dL for >2 hours). Provide written sick day rules and early intervention strategies to prevent DKA. Reinforce importance of carbohydrate counting and consistent meal patterns. Plan 60 minutes spent reviewing previous records, labs, imaging, education and documenting in the chart Orders: Referrals 2 Diabetes Education Referral E10.65 - Type 1 diabetes mellitus with hyperglycemia Podiatry Referral E10.65 - Type 1 diabetes mellitus with hyperglycemia Medications: New 2 lancets (Pure Comfort Safety Lancets) As directed for BG checks 3-4 times per day 200 ea 0RF E10.65 - Type 1 diabetes mellitus with hyperglycemia blood-glucose meter (FreeStyle Lite Meter kit) As directed for BG checks 1 ea 0RF E10.65 - Type 1 diabetes mellitus with hyperglycemia urine glucose-ketones test As directed to check for Ketones PRN 100 ea 3RF E10.65 - Type 1 diabetes mellitus with hyperglycemia blood-glucose meter (FreeStyle Lite Meter kit) As directed for BG checks 1 ea 0RF E10.65 - Type 1 diabetes mellitus with hyperglycemia blood-glucose sensor (FreeStyle Anton 3 Plus Sensor device) As directed to check BG continuously 2 ea 6RF E10.65 - Type 1 diabetes mellitus with hyperglycemia blood sugar diagnostic (FreeStyle Lite Strips) As directed to check BG 3-4x/day 100 ea 3RF E10.65 - Type 1 diabetes mellitus with hyperglycemia blood-glucose sensor (FreeStyle Anton 3 Plus Sensor device) As directed to check BG continuously 2 ea 6RF E10.65 - Type 1 diabetes mellitus with hyperglycemia blood sugar diagnostic (FreeStyle Lite Strips) As directed to check BG 3-4x/day 100 ea 3RF E10.65 - Type 1 diabetes mellitus with hyperglycemia lancets (Pure Comfort Safety Lancets) As directed for BG checks 3-4 times per day 200 ea 0RF E10.65 - Type 1 diabetes mellitus with hyperglycemia urine glucose-ketones test As directed to check for Ketones PRN 100 ea 3RF E10.65 - Type 1 diabetes mellitus with hyperglycemia Changed 2 From pen needle, diabetic (BD Ultra-Fine Mini Pen Needle) E10.65 - Type 1 diabetes mellitus with hyperglycemia To pen needle, diabetic As directed to inject insulin 3-5 times per day 100 ea 3RF E10.65 - Type 1 diabetes mellitus with hyperglycemia From insulin lispro (Humalog KwikPen (U-100) Insulin) See Protocol subcut DIRECTED To insulin lispro (Humalog KwikPen (U-100) Insulin) Use insulin: <100 0; 101-150 0; 151-200 2; 201-250 3; 251-300 4; 301-350 5; 351-400 6; >400 8 See Protocol subcut DIRECTED 15 mL 2RF Refilled 2 insulin lispro (Humalog KwikPen (U-100) Insulin) Use insulin: <100 0; 101-150 0; 151-200 2; 201-250 3; 251-300 4; 301-350 5; 351-400 6; >400 8 See Protocol subcut DIRECTED 15 mL 2RF Patient Instructions: Lantus 18 units daily Use humolog based on sliding scale as below, 15 mins prior to meals Check Ketones in urine if BG > 250 for 2 consecutive hours Coding Level of Care Code New Pt Level 5 (70589) Diagnoses Type 1 diabetes mellitus with hyperglycemia E10.65
[2025-01-27 13:14] VITALS: BP 146/90; PULSE 105; O2SAT 98; BMI 24.2
[2025-01-27 13:25] LABS: Glucose, Whole Blood 308 mg/dL (60-115)
--- OUTSIDE RECORDS SUMMARY | 2025-01-27 15:57 | XMS_ITS | Encounter Summary ---
Author Organization [employer] Address [address] [facility] [address] [place] [address] Care Team Providers Care Teletray Operator Name Role Phone Pavithra Worthy Primary Care Provider [phone] Ela Webber MD Primary Care Provider + Reason for Visit * Reason Onset Date Comments FYI 04/30/2023 Encounter Details Date Type Department Care Team ([facility] st Contact Info) Description 04/30/2023 Telephone [facility] MEDICINE [address] [place], [place] [phone] Pavithra Worthy FNP [address], [place] [phone] FYI Social History Tobacco Use Types Packs/Day Years Used Date Smoking Tobacco: Never Passive Smoke Exposure: Never Smokeless Tobacco: Never Alcohol Use Standard Drinks/Week Comments Never 0 (1 standard drink = 0.6 oz pur e alcohol) Depression Answer Date Recorded Patient Health Questionnaire-9 Score 0 11/29/2022 Housing Stability Answer Date Recorded What is your housing situation today? I have avelino hudson 04/30/[address] you li ve. Do you have problems with any of the following? None of the above 04/30/2023 Food Insecurity Answer Date Recorded Within the past 12 months, y ou worried that your food would run out before you got money to buy more: Never True 01/06/2023 Within the past 12 months,th e food you bought just didn't last and you didn't have enough money to get more: Never True Transportation Answer Date Recorded In the past 12 months, has l ack of transportation kept you from medical appts, meetings, work or from getting things needed for daily living? No 01/06/2023 Utilities Answer Date Recorded In the past 12 months, has t he electric, gas, oil or water company threatened to shut off services in your home? No 01/06/2023 Depression Answer Date Recorded Patient Health Questionnaire-2 Score 0 11/29/2022 Sex and Gender Information Value Date Recorded Sex Assigned at Male 01/21/2022 10:14 AM EDT Legal Sex Male 10:14 AM EDT Gender Identity Male 01/21/2022 10:14 AM EDT Sexual Orientation Choose not to disclose 2021 10:14 AM EDT documented as of this encounter Miscellaneous Notes * Telephone Encounter - Rosy Fishman - 04/30/2023 2:44 PM EST Tc from [facility] with [facility] calling to inform PCP pt refuse services today 04/30/2023 and will be admitted on FridayMay 05. documented in this encounter Plan of Treatment Upcoming Encounters Date Type Department Care Team (Late st Contact Info) Description 02/08/2025 10:45 AM EST Office Visit [facility] MEDICINE [address] [place] [address] Ela Webber MD [address] [place] [address] 07/13/2025 9:00 AM EDT Office Visit [facility] OPTOMETRY [address] [place] [address] Kamille Mendoza, OD [address] [place] [address] documented as of this encounter Visit Diagnoses Not on filedocumented in this encounter Additional Health Concerns Assessment Noted Time PHQ-9 Depression Total Score: 0 11/30/19 23 1:30 PM EDT documented as of this encounter Care Teams Teletray Operator Relationship Specialty Start Date End Date Pavithra Worthy FNP [address] [place] [address] PCP - General Family Medicine 03/06/22 11/17/23 Ela Webber MD [address] [place] [id number] PCP - General Internal Medicine 11/18/23 documented as of this encounter
--- OUTSIDE RECORDS SUMMARY | 2025-01-27 15:57 | XMS_ITS | Encounter Summary ---
Author Organization [employer] Address [address] [facility] 7[address] [place] [address] Care Team Providers Care Small Animal Veterinarian Name Role Phone Ela Webber MD Primary Care Provider + Encounter Details Date Type Department Care Team ([facility] Contact Info) Description 01/27/2025 Orders Only GENERIC EXTERNAL DATA DEPARTMENT Provider, Generic External Data Social History Tobacco Use Types Packs/Day Years Used Date Smoking Tobacco: Never Passive Smoke Exposure: Never Smokeless Tobacco: Never Alcohol Use Standard Drinks/Week Comments Never 0 (1 standard drink = 0.6 oz pur e alcohol) Depression Answer Date Recorded Patient Health Questionnaire-9 Score 8 11/12/2024 Patient Health Questionnaire-9 Score 8 11/12/2024 Last PHQ-9: Questionnaire Data Not on file 0 11/12/2024 Housing Stability Answer Date Recorded What is your housing situation today? I have avelino hudson 08/26/[address] you li ve. Do you have problems with any of the following? None of the above 08/26/2024 Food Insecurity Answer Date Recorded Within the past 12 months, y ou worried that your food would run out before you got money to buy more: Never True 08/26/2024 Within the past 12 months,th e food you bought just didn't last and you didn't have enough money to get more: Never True 07/2024 Transportation Answer Date Recorded In the past 12 months, has l ack of transportation kept you from medical appts, meetings, work or from getting things needed for daily living? No 08/26/2024 Utilities Answer Date Recorded In the past 12 months, has t he electric, gas, oil or water company threatened to shut off services in your home? No 08/26/2024 Depression Answer Date Recorded Patient Health Questionnaire-2 Score 2 11/12/2024 Internet Access Answer Date Recorded Internet Access Q1 Yes 08/26/2024 Internet Access Q2 Not on file 08/26/2024 Sex and Gender Information Value Date Recorded Sex Assigned at Male 01/21/2022 10:14 AM EDT Legal Sex Male 10:14 AM EDT Gender Identity Male 01/21/2022 10:14 AM EDT Sexual Orientation Choose not to disclose 2021 10:14 AM EDT documented as of this encounter Plan of Treatment Upcoming Encounters Date Type Department Care Team (Late st Contact Info) Description 02/08/2025 10:45 AM EST Office Visit [facility] MEDICINE [address] [place] [address] Ela Webber MD [address] [place] [address] 07/13/2025 9:00 AM EDT Office Visit [facility] OPTOMETRY [address] [place] [address] RejiKamille, OD [address] [place] [address] documented as of this encounter Procedures Procedure Name Priority Date/Time Associated Diagnosis Comments GLUCOSE, WHOLE BLOOD Routine 01/27/2025 1:20 PM EST documented in this encounter Results * (ABNORMAL) Glucose, Whole Blood (01/27/2025 1:20 PM EST) Glucose, Whole Blood 308(H) 60 - 115 mg/dL [facility] Comment:METER #: [id number] 0Testing performed in the Endocrinology Department [address] , [address], [facility]. 01/27/2025 1:20 PM EST 01/27/2025 1:25 PM EST us Generic External Data Provider LAB BLOOD ORDERAB LES Final Result [facility] [address] [place] [phone] documented in this encounter Visit Diagnoses Not on filedocumented in this encounter Additional Health Concerns Assessment Noted Time PHQ-9 Depression Total Score: 8 11/13/19 25 12:09 PM EDT documented as of this encounter Care Teams Small Animal Veterinarian Relationship Specialty Start Date End Date Ela Webber MD [address] [place] [phone] PCP - General Internal Medicine 11/18/23 documented as of this encounter
--- OUTSIDE RECORDS SUMMARY | 2025-01-27 15:57 | XMS_ITS | Encounter Summary ---
Author Organization [employer] Address [address] [facility] 7t [place] [address] Care Team Providers Care Collar Setter Overlock Name Role Phone Ela Webber MD Primary Care Provider + Reason for Visit * Reason Comments Transition Of Care (Tcm) HDF scheduled Encounter Details Date Type Department Care Team ([facility] st Contact Info) Description 01/24/2025 Patient Outreach [facility] MEDICINE [address] [place], [place] [phone] lEa Webber MD [address] [place] [address] Transition Of Care (Tcm) (HDF scheduled ) Social History Tobacco Use Types Packs/Day Years [...] as of this encounter Miscellaneous Notes * Significant Event - Ian Romeo - 01/24/2025 8:40 AM EST 01/24/25 0838 Hospital Discharges and Admission for [facility] Type of Visit Hospital Admission Date of Admission/Visit 01/13/25 Date of Discharge 01/14/25 Facility [facility] Diagnosis DKA, Hyperkalemia, Prolonged QT interval, Disposition Discharged Home Follow-Up Actions Follow-Up Needed Provider appointment Follow-Up Outcome Spoke to Patient;Booked Appointment Initial Contact Date 01/24/25 KALEB Harley placed outbound call to patient for HDF outreach. Patient's name and were confirmed. Patient educated on the importance of follow up with provider following inpatient admission. Patient offered an HDF appt. Patient is agreeable to an appointment and has been scheduled for 02/08/25 at 10:45am with Dr. Webber. Insurance verified prior to scheduling. Patient also notified that a health center pharmacist will be reaching out to them via telephone prior to their scheduled appointment in order to review their medications in preparation for their appointment. Patient advised to bring to appointment a photo id and insurance card. Patient provided with education on contacting the Health Center with any questions or concerns prior to the scheduled appointment. Patient educated on extended clinic hours on Mondays and Wednesdays, and Walk-In Urgent Care Located in [facility]. Patient provided with after-hours line for [facility], , which offer night time triage service and option to transfer to investigation division lieutenant provider if needed. CC scanned discharge summary into chart. Biggest concern for appointment at this time is patient missed appointment due to having an ER visit 01/21/25 for vomiting. Appropriate screenings completed in anticipation of appointment. documented in this encounter Plan of Treatment Upcoming Encounters Date Type Department Care Team (Late st Contact Info) Description 02/08/2025 10:45 AM EST Office Visit [facility] [address] [place] [address] Ela Webber MD [address] [place] [address] 07/13/2025 9:00 AM EDT Office Visit [facility] OPTOMETRY [address] [place] [address] Reji, Kamille, OD [address] [place] [address] documented as of this encounter Visit Diagnoses Not on filedocumented in this encounter Additional Health Concerns Assessment Noted Time PHQ-9 Depression Total Score: 8 11/13/19 25 12:09 PM EDT documented as of this encounter Care Teams Collar Setter Overlock Relationship Specialty Start Date End Date Ela Webber MD [address] [place] [address] PCP - General Internal Medicine 11/18/23 documented as of this encounter
--- OUTSIDE RECORDS SUMMARY | 2025-01-27 15:57 | XMS_ITS | Encounter Summary ---
Author Organization [employer] Address [address] [facility] [address] [place] [address] Care Team Providers Care Fish Hatchery Specialist Name Role Phone Ela Webber MD Primary Care Provider + Reason for Visit * Reason Comments Med Refill Encounter Details Date Type Department Care Team ([facility] st Contact Info) Description 12/16/2023 Refill [facility] MEDICINE [address] [place], [place] [phone] Pavithra Worthy FNP [address] [place] [address] Gastroesophageal reflux disease without esophagitis Social History Tobacco Use Types Packs/Day Years [...] Description 02/08/2025 10:45 AM EST Office Visit [facility] MEDICINE [address] [place] [address] Ela Webber MD [address] [place] [address] 07/13/2025 9:00 AM EDT Office Visit [facility] OPTOMETRY [address] [place] [address] Reji, Kamille, OD [address] [place] [address] documented as of this encounter Visit Diagnoses Diagnosis Gastroesophageal reflux disease without esophagitis Esophageal reflux documented in this encounter Additional Health Concerns Assessment Noted Time PHQ-9 Depression Total Score: 0 11/30/19 23 1:30 PM EDT documented as of this encounter Care Teams Fish Hatchery Specialist Relationship Specialty Start Date End Date Ela Webber MD [address] [place] [id number] PCP - General Internal Medicine 11/18/23 documented as of this encounter
--- OUTSIDE RECORDS SUMMARY | 2025-01-27 15:57 | XMS_ITS | Encounter Summary ---
Author Organization [employer] Address [address] [facility] [address] [place] [address] Care Team Providers Care Ambulatory Services Representative Name Role Phone Ela Webber MD Primary Care Provider + Encounter Details Date Type Department Care Team ([facility] Contact Info) Description 01/19/2025 Telephone [facility] [address] [place], [place] [phone] Ela Webber MD [address] [place], [place] [phone] Social History Tobacco Use Types Packs/Day Years [...] your housing situation today? I have avelino husdon 08/26/[address] you li [...] encounter Miscellaneous Notes * Telephone Encounter - Kay Workman RN - 01/24/2025 9:32 AM EST Staff message sent to [facility] case management specialist Sue Pitts to advise of no show and that HDF has been r/s to02/08/25 * Telephone Encounter - Ela Webber MD - 01/21/2025 4:38 PM EDT Patient did not show for appointment on 01/20/2025. Please contact [facility] care management and inform about CDTM's, noncompliance with appointment and see if he can be rescheduled. * Telephone Encounter - Kay Workman RN - 01/21/2025 10:45 AM EDT TC placed to pt. To advise of sensor and BP monitor prescription and to r/s missed HDF prn, no answer, VM box full. Pt. To f/up prn * Telephone Encounter - Ela Webber MD - 01/19/2025 3:16 PM EDT CM and RN notes appreciated. I will fu with Albert tomorrow re Cardio appointment, will do new referral if needed. I will order a BP machine for home (DME order), however he should abstain from taking meds prn unless instructed by Nephrology who's the one mainly adjusting his meds (unless it is an emergency) due to HD affecting BP readings. I called his pharmacy and he had enough refills for sensors, they'll have one ready for him tomorrow. Please call patient and remind him to get sensors at his pharmacy and to wait from tc from DME provider re BP machine. I appreciate the support so that we can optimize compliance with prescriptions and appts. * Telephone Encounter - Ela Webber MD - 01/19/2025 3:16 PM EDT ----- Message from Nurse Kay Weiss sent at 01/19/2025 1:49 PM EDT ----- Regarding: RE: JOSE DANIEL KUNZ [employer] member - medical concerns Yoni Sue, I have further information about the CGM sensors. [facility] called us on 12/01/24, they receivedour PA but they had to void it as they stated they already had an active PA from Dr. Hernandez' office([facility]). They did not need a new PA. I will forward on the rest of the information to Dr. Webber for tomorrow. Thanks! ----- Message ----- From: Sue Pitts Sent: 01/19/2025 9:27 AM EDT To: Kay Workman RN; Carolina Buck RN; Leslie Pires# Subject: JOSE DANIEL KUNZ [employer] member - medical concerns Milton has a scheduled appointment with Dr. Webber on 01/20/25 at 1045. He should be able to discuss the following concerns: I met with Milton this morning and he let me know that he does not have the sensors needed for his continuous glucose monitoring system. He reports he went to the pharmacy to get a refill of sensors andwas told the pharmacy needed a ???form from the doctor?? (I believe he is referring to a PA). I found in [facility] a PA for a CGM reader and sensors (document date/time 11/23/24, 0918) that was completed and faxed on 11/16/24. However, we do not see evidence that [facility] either received or approved the CGM. ##Would you please review the documentation and resend the PA to [facility] for approval. Milton reports a concern of ???always having high blood pressure.?? He has his pressure taken at dialysis and during ED/hospital visits, but he does not check his pressure at home. ##Would Dr. Webber consider writing a script for an automatic blood pressure cuff for member touse at home? Milton stated it has been his data entry analyst who prescribes medications for his blood pressure, and he will soon need refills. He then reported that he hasn???t seen his data entry analyst in ???probably over ayear.?? I advised Milton to call the cardiology office to inquire if he was still considered an active patient and about scheduling an appointment. I recommended that Milton call their office prior to hisPCP appointment so if needed, he can follow up with Dr. Webber. ##I???m not sure if he will be needing a referral to a new data entry analyst or support with medication refills. Additionally, Milton missed his initial appointment with [facility]ocr[facility]ology because he was in the hospital. I called the office to explain, and I was able to reschedule his appointment, which will be 01/27/25 at 1pm. His [facility] Security Escort, Brody, will be attending the appointment with him. Thank you, Sue documented in this encounter Plan of Treatment Upcoming Encounters Date Type Department Care Team (Late st Contact Info) Description 02/08/2025 10:45 AM EST Office Visit [facility] [address] [place], [place] [phone] Ela Webber MD [address] [place], [place] [phone] 07/13/2025 9:00 AM EDT Office Visit [facility] [address] [place], [place] [phone] Kamille Mendoza, JONI [address] [place] [address] documented as of this encounter Visit Diagnoses Not on filedocumented in this encounter Additional Health Concerns Assessment Noted Time PHQ-9 Depression Total Score: 8 11/13/19 25 12:09 PM EDT documented as of this encounter Care Teams Ambulatory Services Representative Relationship Specialty Start Date End Date Ela Webber MD [address] [place], [place] [phone] PCP - General Internal Medicine 11/18/23 documented as of this encounter
--- OUTSIDE RECORDS SUMMARY | 2025-01-27 15:57 | XMS_ITS | Encounter Summary ---
Author Organization [employer] Address [address] [facility] 7t [place] [address] Care Team Providers Care Soldering Machine Tender Name Role Phone Pavithra Worthy Primary Care Provider [phone] Ela Webber MD Primary Care Provider + Encounter Details Date Type Department Care Team ([facility] Contact Info) Description 08/15/2022 [facility] Information Management [address] [place], [place] [phone] Pavithra Worthy FNP [address] [place] [address] Social History Tobacco Use Types Packs/Day Years Used Date Smoking Tobacco: Never Smokeless Tobacco: Never Alcohol Use Standard Drinks/Week Comments Never 0 (1 standard drink = 0.6 oz pur e alcohol) Sex and Gender Information Value Date Recorded Sex Assigned at Male 01/21/2022 10:14 AM EDT Legal Sex Male 10:14 AM EDT Gender Identity Male 01/21/2022 10:14 AM EDT Sexual Orientation Choose not to disclose 2021 10:14 AM EDT COVID-19 Exposure Response Date Recorded In the last 10 days, have yo u been in contact with someone who was confirmed or suspected to have Coronavirus/COVID-19? No / Unsure 08/12/2022 8:56 AM EDT documented as of this encounter Plan of Treatment Upcoming Encounters Date Type Department Care Team ([facility] Contact Info) Description 02/08/2025 10:45 AM EST Office Visit [facility] [address] [place] [address] Ela Webber MD [address] [place] [address] 07/13/2025 9:00 AM EDT Office Visit [facility] [address] [place], [place] [phone] Kamille Mendoza, OD [address] [place] [address] documented as of this encounter Visit Diagnoses Not on filedocumented in this encounter Care Teams Soldering Machine Tender Relationship Specialty Start Date End Date Pavithra Worthy FNP [address] [place] [address] PCP - General Family Medicine 03/06/22 11/17/23 Ela Webber MD [address] [place] [address] PCP - General Internal Medicine 11/18/23 documented as of this encounter
--- OUTSIDE RECORDS SUMMARY | 2025-01-27 15:57 | XMS_ITS | Encounter Summary ---
Author Organization [employer] Address [address] [facility] [address] [place] [address] Care Team Providers Care Hypercil Core Transformer Assembler Name Role Phone Pavithra Worthy Primary Care Provider [phone] Ela Webber MD Primary Care Provider + Encounter Details Date Type Department Care Team (Late Contact Info) Description 04/25/2022 Abstract [facility] [address] [place], [place] [phone] Delma Stevenson RN Social History Tobacco Use Types Packs/Day Years Used Date Smoking Tobacco: Never Smokeless Tobacco: Never Sex and Gender Information Value Date Recorded [...] suspected to have Coronavirus/COVID-19? No / Unsure 03/27/2022 8:44 AM EST documented as of this encounter Plan of Treatment Upcoming Encounters Date Type Department Care Team (Late Contact Info) Description 02/08/2025 10:45 AM EST Office Visit [facility] [address] [place], [place] [phone] Ela Webber MD [address] [place] [address] 07/13/2025 9:00 AM EDT Office Visit [facility] [address] [place], [place] [phone] Kamille Mendoza, OD [address] [place] [address] documented as of this encounter Visit Diagnoses Not on filedocumented in this encounter Care Teams Hypercil Core Transformer Assembler Relationship Specialty Start Date End Date Pavithra Worthy FNP [address] [place] [address] PCP - General Family Medicine 03/06/22 11/17/23 Ela Webber MD [address] [place], [place] [phone] PCP - General Internal Medicine 11/18/23 documented as of this encounter
--- OUTSIDE RECORDS SUMMARY | 2025-01-27 15:57 | XMS_ITS | Encounter Summary ---
Author Organization [employer] Address [address] [facility] [address] [place] [address] Care Team Providers Care Deskidding Machine Operator Name Role Phone Ela Webber MD Primary Care Provider + Reason for Visit * Reason Onset Date Comments ER Follow-up 11/21/2023 Encounter Details Date Type Department Care Team ([facility] st Contact Info) Description 11/21/2023 Telephone [facility] [address] [place], [place] [phone] Ela Webber MD [address] [place] [address] ER Follow-up Social History Tobacco Use Types Packs/Day Years [...] encounter Miscellaneous Notes * Telephone Encounter - Zhanna Mistry RN - 11/21/2023 11:05 AM EDT T/c to pt. For below message, pt. Went ED because he missed his dialysis, pt. Was refereed to dialysis from ED and resolved symptoms. Pt. Is doing well today , no any concerns or symptoms. Pt. Advised to go to nearest ED in case of any new or worsening symptoms including SOB, CP or breathing problem. Pt. Verbally agreed and understood. [facility] hours are reviewed. * Telephone Encounter - Akosua Dwyer - 11/21/2023 10:44 AM EDT Patient calling to report ED visit on : Date: 11/19/23 Hospital: [facility] Seen for: Fluid in lungs, Needed Dialysis Patient advised will forward to team nurse for follow up documented in this encounter Plan of Treatment Upcoming Encounters Date Type Department Care Team (Late st Contact Info) Description 02/08/2025 10:45 AM EST Office Visit [facility] [address] [place] [address] Ela Webber MD [address] [place] [address] 07/13/2025 9:00 AM EDT Office Visit [facility] [address] [place] [address] Kamille Mendoza, OD [address] [place] [address] documented as of this encounter Visit Diagnoses Not on filedocumented in this encounter Additional Health Concerns Assessment Noted Time PHQ-9 Depression Total Score: 0 11/30/19 23 1:30 PM EDT documented as of this encounter Care Teams Deskidding Machine Operator Relationship Specialty Start Date End Date Ela Webber MD [address] [place] [address] PCP - General Internal Medicine 11/18/23 documented as of this encounter
--- OUTSIDE RECORDS SUMMARY | 2025-01-27 15:57 | XMS_ITS ---
Author Name [facility] Organization Unknown Results Test Name/Text Value Interpretation Date Range Source GFR [place] 29.0 mL/min/1.73 m2 Below low normal 11/05/2023 - [facility] Sodium Lvl 142.0 mmol/L Normal 11/05/2023 136 - 145 [facility] Glucose Lvl Random 104.0 mg/dL Normal 11/05/2023 65 - 140 [facility] Creatinine 2.88 mg/dL Above high normal 11/05/2023 0.6 - 1.1 [facility] Chloride 107.0 mmol/L Normal 11/05/2023 98 - 107 [facility] CO2 30.0 mmol/L Normal 11/05/2023 20 - 31 [facility] Potassium Lvl 4.7 mmol/L Above high normal 11/05/2023 3.4 - 4.5 [facility] Calcium Lvl 9.3 mg/dL Normal 11/05/2023 8.7 - 10.4 [facility] AGAP 5.0 mmol/L Normal 11/05/2023 5 - 15 [facility] BUN 54.0 mg/dL Above high normal 11/05/2023 9 - 23 [facility] Basophil Abs 0.1 k/uL Normal 11/05/2023 0 - 0.2 [facility] WBC 6.57 k/uL Normal 11/05/2023 4 - 10.8 [facility] Hct 36.8 % Below low normal 11/05/2023 37.5 - 49.5 [facility] [place] % 9.1 % Normal 11/05/2023 3 - 12 [facility] Imm Gran % 0.3 % Normal 11/05/2023 0.1 - 0.3 [facility] Neutro % 68.0 % Normal 11/05/2023 43 - 75 [facility] RBC 3.63 million/uL Below low normal 11/05/2023 4.2 - 5.5 [facility] MCV 101.4 FL Above high normal 11/05/2023 81 - 100 [facility] MCHC 29.6 gm/dL Below low normal 11/05/2023 31 - 36 [facility] NRBC auto 0.0 /100 wbcs Normal 11/05/2023 0 - 2 [facility] RDW 15.1 % Normal 11/05/2023 11.5 - 15.5 [facility] Neutro Absolute 4.5 k/uL Normal 11/05/2023 1.7 - 8.1 [facility] NRBC Abs 0.0 k/uL Normal 11/05/2023 0 - 0.1 [facility] Eosinophil Abs 0.2 k/uL Normal 11/05/2023 0 - 0.7 [facility] Lymph % 17.7 % Normal 11/05/2023 15 - 45 [facility] MPV 11.5 FL Above high normal 11/05/2023 7.5 - 10.4 [facility] MCH 30.0 pg Normal 11/05/2023 27 - 31 [facility] Basophil % 1.4 % Normal 11/05/2023 0 - 2 [facility] Hgb 10.9 gm/dL Below low normal 11/05/2023 12.5 - 16.5 [facility] Eos % 3.5 % Normal 11/05/2023 0 - 6 [facility] Lymph Absolute 1.2 k/uL Normal 11/05/2023 0.6 - 4.9 [facility] Monocyte Abs 0.6 k/uL Normal 11/05/2023 0.1 - 1.3 [facility] Platelet 238.0 k/uL Normal 11/05/2023 145 - 400 [facility] Imm Gran Absolute 0.02 k/uL Normal 11/05/2023 0.01 - 0.03 [facility] GLUCOMETER 110.0 mg/dL Normal 11/05/2023 65 - 140 [facility] Encounters Encounter Type Encounter Reason Primary Diagnosis Location Date Emergency AMBO HYPOGLYCEMIC HYPOGLYCEMIA, UNSPECIFIED [facility] 11/05/2023 Emergency medical services Other and unspecified symptoms and signs involving cognitive functions and awareness [facility] 11/05/2023 Care Team Organization Name Specialty Phone Email Start Date End Da te [facility] DANIELLE DODD Primary Care 11/06/2023 [facility] DANIELLE DODD Primary Care 11/05/2023 [facility] CRISTINA FORTE Primary Care 11/05/2023
--- OUTSIDE RECORDS SUMMARY | 2025-01-27 15:57 | XMS_ITS | Clinical Summary ---
Author Organization [employer] Address [address] [facility] [address] [place] [address] Care Team Providers Care Master Baker Name Role Phone Ela Webber MD Primary Care Provider + Allergies No known active allergies Medications * This document contains information received from the source organization and may not represent a complete record from that organization. Alcohol Swabs (Ultra-Care Alcohol Prep Pads) 70 % pads CHECK BLOOD GLUCOSE THREE TIMES DAILY BEFORE MEALS 100 each 2 023 Active amiodarone (Pacerone) 200 MG tablet Take 1 tablet (200 mg) by mouth in the morning. 1 tab (200 mg) daily 90 tablet Active apixaban (Eliquis) 5 MG tablet Take 1 tablet (5 mg) by mouth 2 times daily. 180 tablet Active B-D UF III MINI PEN NEEDLES 31G X 5 MM [facility] USE DIRECTED UP TO FOUR TIMES A DAY TO INJECT INSULIN 100 each Active levothyroxine (Synthroid, Levoxyl) 100 MCG tablet Take 1 tablet (100 mcg) by mouth before breakfast. 90 tablet Active sevelamer (Renagel) 800 MG tablet Take 1 tablet (800 mg) by mouth with breakfast, with lunch, and with evening meal. 270 tablet Active FREESTYLE LITE test stripIndication s:Type 1 diabetes mellitus with hyperosmolarity , uncontrolled (HCC) USE 1 TEST STRIP 4 TIMES A DAY TO CHECK BLOOD SUGAR, DX TYPE 1 DIABETES 100 each 024 Active torsemide (Demadex) 20 MG tablet Take 2 tablets by mouth 2 times daily. at least 6 hours apart Active B Tbddozr-C-Lbhke Acid (Full Spectrum B) 0.8 MG tablet Take 1 tablet by mouth Once per day. Active Entresto 24-26 MG tablet Take 1 tablet by mouth 2 times daily. Active pantoprazole (ProtoNix) 40 MG EC tabletIndicatio ns:Gastroesopha geal reflux disease without esophagitis TAKE 1 TABLET BY MOUTH EVERY MORNING. DO NOT CRUSH, CHEW OR SPLIT. 30 tablet Active metOLazone (Zaroxolyn) 5 MG tablet Take 5 mg by mouth Once per day. 025 2025 Active Continuous Glucose Sensor (FreeStyle Anton 3 Sensor) misc 1 each before breakfast, before lunch, and before evening meal for 28 days. 2 each 3 Active Lancets misc Use to test blood sugar 3x times daily 100 each Active Blood Glucose Monitoring Suppl (FreeStyle Rebecca Lite) w/Device kit Use to test blood sugar 3x times daily 1 kit Active atorvastatin (Lipitor) 80 MG tabletIndicatio ns:Other congestive heart failure (HCC) Take 1 tablet (80 mg) by mouth Once per day. 90 tablet 3 025 2025 Active carvedilol (Coreg) 25 MG tablet Take 1 tablet (25 mg) by mouth 2 times daily. 180 tablet 3 2025 Active DULoxetine (Cymbalta) [address] capsule Take 1 capsule (60 mg) by mouth Once per day. 90 capsule 3 Active gabapentin (Neurontin) 300 MG capsule Take 1 capsule (300 mg) by mouth 2 times daily. 180 capsule 025 2025 Active melatonin 3 MG tablet Take 1 tablet (3 mg) by mouth at bedtime. 30 tablet Active glucose 4 g chewable tablet Chew 3 tablets (12 g) if needed for low blood sugar. Take 3tabs for BS 50-70. Take 6 tabs for bs<50. Repeat in 15min prn 50 tablet Active Gvoke HypoPen 2-Pack 1 MG/0.2ML injection Inject 0.2 mL (1 mg) under the skin 1 (one) time if needed for low blood sugar for up to 1 dose. 1 each 3 Active mirtazapine (Remeron) 30 MG tablet TAKE 1 TABLET BY MOUTH AT BEDTIME 30 tablet 11 025 Active insulin glargine (Lantus SoloStar) 100 UNIT/ML pen Inject 12 Units under the skin at bedtime. Active insulin lispro (HumaLOG KWIKPEN) 100 UNIT/ML injection Inject 2-10 subcutaneous three times a day before meals Active insulin lispro (HumaLOG) 100 UNIT/ML injection Inject 2-6 Units under the skin with breakfast, with lunch, and with evening meal. INJECT 2 TO 6 UNITS SUBCUTANEOUSLY THREE TIMES A DAY BEFORE MEALS PER SLIDING SCALE 1 mL 11 024 2024 Discontinued(M ed list cleanup (will not trigger notification to Pharmacy)) insulin glargine (Lantus SoloStar) 100 UNIT/ML pen Inject 20 Units under the skin at bedtime. 3 mL 025 2024 Discontinued(M ed list cleanup (will not trigger notification to Pharmacy)) Hospital, Clinic, or Other Facility Administered Medication Ordered Dose Route Frequency Start Date End Date Status insulin lispro (HumaLOG) injection 10 UnitsIndications:Type 1 diabetes mellitus with hyperosmolarity, uncontrolled (HCC) 10 Units SC Once 07/24/2022 Active Active Problems Patient Care Coordination No te Formatting of this note migh t be different from the original. C3/CM Sue De Leon RN /C3CM CHW Kindra Lew Problem Noted Date Diagnosed Date Diabetic polyneuropathy asso ciated with type 1 diabetes mellitus 11/12/2024 Assessment & Plan (11/12/2024 3:30 PM EDT): On lower extremities, we discussed about importance of tight control of diabetes, see POC as above and follow-up with endocrinology next week. Restart gabapentin 300 mg twice daily, hold for sedation and follow-up with me in 4 to 5 weeks. We discussed that there is no role for opioids or controlled substances at this time. Arm ulcer, with fat layer exposed 11/12/2024 Assessment & Plan (11/12/2024 3:29 PM EDT): On right forearm. Patient will continue cleaning and dressing at home with topical antibiotic. Will refer to wound clinic We discussed importance about tight control of diabetes Retinal arteriolar sclerosis 07/09/2024 Corneal scar, right eye 07/09/2024 Fixed dilated pupils of both eyes 07/09/2024 Epiretinal membrane (ERM) of both eyes 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 07/09/2024 History of detached retina repair 07/09/2024 History of anemia due to CKD 10/22/2023 Hyperlipidemia 10/22/2023 Moderate tricuspid regurgitation 10/22/2023 Chronic back pain 07/15/2023 Chronic pain syndrome 07/15/2023 Assessment & Plan (11/12/2024 3:31 PM EDT): Symptoms got worse after hospitalization last year he was referred to PT. He is able to ambulate regularly at this time without support. We discussed regarding avoiding recreational substances or alcohol especially opiates after may cause intermittent withdrawals. Restart gabapentin 300 mg up to twice daily, hold for sedation and follow-up with me in 4 to 5 weeks Will restart duloxetine 60 mg only also to him for better anxiety control, follow-up in 4 to 5 weeks Assessment & Plan (02/13/2024 2:39 PM EST): Continue PT and OT at home for now, ambulation with the cane. Start low dose Gabapentin 100 mg daily and hold dose on HD to take after dialysis. Continue to take Oxicodone dose sparingly and advised ti was his las Rx, we have briefly discussed replacing termite treater opioid use with Butrans and he is not interested at this time. Start gabapentin low dose, adjusted to HD, he's to take the dose on HD days, after his HD. Consider referral to pain management clinic. Assessment & Plan (12/30/2023 3:41 PM EDT): Unclear if related to chronic disease I.e HD, sepsis, recurrent DKAs, previous opiate use, depression? I will give rx oxycodone to use sparingly, it is likely that he may need specialty pain rx, ideally not oxycodone or morphine (buprenorphine/ Butrans) Continue PT/OT Class 1 obesity 07/15/2023 Hypothyroid 07/15/2023 Assessment & Plan (11/12/2024 3:27 PM EDT): Apparently not on levothyroxine for more than a year, no recent TSH on file. Patient to check TSH prior to next visit and he will bring all medication bottles from home at next appointment in 4 to 5 weeks ESRD (end stage renal disease) on dialysis ([facility]) 06/29/2023 Assessment & Plan (09/03/2024 3:32 PM EDT): On hemodialysis at [facility] Nephrology Assessment & Plan (12/29/2023 5:06 PM EDT): - on hemodialysis at [place] [facility]Y LV (left ventricular) mural thrombus 03/10/2023 03/10/2023 Assessment & Plan (11/12/2024 3:21 PM EDT): On Eliquis due to high risk embolism (history of very low LVEF/CHF) Follow-up with cardiology Assessment & Plan (09/03/2024 3:36 PM EDT): High risk due to low LVEF, continue Eliquis and follow-up with transport assistant Assessment & Plan (12/30/2023 3:39 PM EDT): - high risk due to low LVEF - continue Eliquis and f/u with cardio Acid reflux 01/07/2023 01/07/2023 Assessment & Plan (09/03/2024 3:31 PM EDT): Status post recent hospital discharge, doing well on Protonix Continue Protonix daily and follow-up with me in 1 month, consider H. pylori testing. Pulmonary hypertension due to left heart disease ([facility]) 01/07/2023 01/07/2023 Chronic HFrEF (heart failure with reduced ejection fraction) 10/22/2022 Assessment & Plan (11/12/2024 3:22 PM EDT): No S/S of volume overload at this time, he has been underlying orthopnea, unchanged over many years. Continue Entresto, amiodarone, atorvastatin, torsemide, carvedilol and Eliquis for ventricular thrombus. We discussed importance of close follow-up with cardiology as well as diabetes and hypertension control, attend hemodialysis regularly 3 times weekly. Assessment & Plan (09/03/2024 3:36 PM EDT): No S/S of volume overload at this time, he has been underlying orthopnea, unchanged over many years. Continue Entresto, amiodarone, atorvastatin, metolazone, carvedilol and Eliquis for ventricular thrombus. We discussed about importance of calling cardiology to reschedule appointments missed earlier this year. We discussed importance of diabetes and hypertension control, attend hemodialysis regularly 3 times weekly. Assessment & Plan (02/13/2024 11:28 AM EST): Pt with no s/s of volume overload now. Continue HD and follow up with cardiology. Assessment & Plan (09/03/2024 3:27 PM EDT): >>ASSESSMENT AND PLAN FOR CHRONIC HFREF (HEART FAILURE WITH REDUCED EJECTION FRACTION) (CMS/HCC) WRITTEN ON 12/29/2023 4:55 PM BY GILDARDO PADILLA See cardiomyopathy >>ASSESSMENT AND PLAN FOR CARDIOMYOPATHY (CMS/HCC) WRITTEN ON 12/29/2023 5:11 PM BY GILDARDO PADILLA - pt follows up with cardiology at [facility], will obtain OV results - continue Amiodarone, Carvedilol, Torsemide, Eliquis, and Atorvastatin - advised regarding tight control of DM, HTN, and compliance with hemodialysis - secondary to previous cocaine use Moderate episode of recurren t major depressive disorder (CMS/HCC) 07/15/2022 Assessment & Plan (12/29/2023 5:26 PM EDT): - will refer to for BE and psych referral due to substance abuse - will start Mirtazapine - discuss importance of avoiding recreational substance use - continue melatonin and duloxetine 30 mg Assessment & Plan (10/11/2022 12:59 PM EDT): Assessment and Plan: Yimi was engaged with active reflective listening and open-ended questions. Assessed symptoms, risks, and social supports with direct questions. Discussed current symptoms intensity and frequency. Emotions were normalized and validated. He identified talking with mom as coping mechanisms and his daughter as protective factors. Provided psychoeducation around coping skills for Depression and anxiety. Discussed OP therapy and medication Management, I called Crisis with yimi and I was able to get him to be seen at his house by a chemistry laboratory technician. Provided education around integrated medicine and the options of follow up BE's as needed. Provided contact information should questions or concerns arise. Plan: Yimi will be evaluated by [facility] Crisis at his home today. He will engage in effective coping mechanisms provided at least 2 times perday for 6 months. He will be referred to Ind. Therapy and Medication Management. Patient with lack of motivation, hopelessness, insomnia, fatigue, poor appetite and over eating at times, slow speech at times, passive thoughts without plan or intention, feeling anxious, persistent worry, fidgety, irritability, fearfulness. He denies HI, AVH or self-harm at this time. He lives with his parents, his daughter and two siblings. Not working receiving [employer]. Multiple health chronic conditions. Denies Hx of trauma or MH Hx, currently having passive SI. Patient will benefit from Ind. Therapy and Medication Management. At this time Yimi Wynn meets criteria for Visit Diagnoses: Problem List Items Addressed This Visit Other Moderate episode of recurrent major depressive disorder (CMS/HCC) Patient ready to address current needs Yes Strengths include willing to seek treatment, supported by family. PLAN: 1. Follow up with [facility]: Not recommended for follow-up 2. Patient goal is to engage in OP services 3. Behavioral Recommendations a. Ind. Therapy b. Medication management c. Use of coping skills provided d. [facility] contact number for extra support. Polysubstance abuse 07/15/2022 Assessment & Plan (09/03/2024 3:30 PM EDT): History of opiate use, sober for approximately 6 months. He is not taking any opiate replacement therapy and is not interested at this time. We had discussed about coping mechanisms with withdrawal, relapse or racing thoughts, he is aware that he can reach out to our recovery coaches, CRS program or mental health programs, he declines at this time. We discussed about being engage on other activities that provide him coping mechanisms with anxiety and depression, he is not interested at this time, will continue to live with his mother and taking care of his kids. Polypharmacy 05/08/2022 Assessment & Plan (11/12/2024 3:33 PM EDT): He is taking multiple medications and apparently has duplicate bottles at home (from previous noncompliance? Back to the hospitalizations?), we discussed about bringing him medications at next visit and consider to go onto a med box first are one of the local pharmacies including ours. His mother is his SLITTER HELPER, will consider [facility] for med administration, will follow-up with patient at next visit Assessment & Plan (05/08/2022 9:48 AM EST): Qualifies for SLITTER HELPER services. Flor asked medical records to reach out to miguel to get medical records for PCP. Primary insomnia 05/08/2022 01/07/2023 Generalized anxiety disorder 03/27/2022 Assessment & Plan (11/12/2024 3:29 PM EDT): Patient off duloxetine for more than a year, he is not using gabapentin either. Restart duloxetine 60 mg and gabapentin (mostly for DM neuropathy) and follow-up with me in 1 month, may need referral to . We discussed importance of avoiding recreational substances or alcohol, he feels safe at home and is able to reach out for safety Assessment & Plan (05/08/2022 9:42 AM EST): Referred to N. Restart mirtazapine. Hypertension 03/27/2022 Assessment & Plan (09/03/2024 3:36 PM EDT): Fairly controlled today, better control he is compliant with dialysis. Discussed importance of attending hemodialysis treatments Continue Entresto and metolazone Order labs and follow-up with me in 6 weeks Cerebral infarction 03/21/2022 Overview (12/30/2023): Brain MRI 08/17/21: Impression: Multiple small focal acute infarcts of various sizes are seen in the frontoparietal white matters, to a less extent of the left occipital white matter. Some of these infarcts appear to be in the watershed areas bilaterally. No associated hemorrhage or significant mass effect. No abnormal enhancement. . Assessment & Plan (12/30/2023 3:34 PM EDT): Has diffuse microvascular changes on Brain MRI 06/2021/ ro demyelinating disease/ previous cocaine use side effects?Needs PT to improve mobility, may need full evaluation by neurology after PT. Will fu at next visit. Right heart failure 03/21/2022 Assessment & Plan (05/08/2022 9:42 AM EST): Heart failuer EF 15-20%. Managed through [facility] cardiology. 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 Rx sent for regular glucometer to check BS 3 times daily AC meals and use Humalog as prescribed on most recent discharge, I will do the PA for CGM (freestyle anton 3) Continue Lantus 12 units for now, follow-up with stone gang sawyer next week. We discussed importance of having a small infection meals, to avoid missing breakfast especially and make sure that he uses Humalog sliding scale prior to meals Patient has diabetic nephropathy/ESRD Foot examination is within normal limits, has mild diabetic neuropathy on LLE. Follow-up with endocrinology next week and with me in 1 month Assessment & Plan (09/03/2024 3:39 PM EDT): Uncontrolled, patient mainly noncompliant with insulin and treatment in general. Given the patient is n.p.o. for more than 12 hours today, I am unable to give him Humalog at this time even if he has ketonuria. I will order BMP and ketones and he will go home, check fingersticks and cover with Humalog with sliding scale + add Lantus 5 units at today's dose and check fingersticks 2 hours after lunch, I will call him back then. We discussed that the goal is to prevent recurrent ED or hospital admissions, the importance of compliance with small meals and avoid being fasting, use of Humalog as prescribed and Lantus daily. He agreed with the POC. I we will increase Lantus to 20u/d and fu with me in 3w, he will fu with [facility] endocrinology next month, follow-up with me in 4 to 6 weeks We discussed importance of having a small infection meals, to avoid missing breakfast especially and make sure that he uses Humalog sliding scale prior to meals Patient has diabetic nephropathy/ESRD Foot examination is within normal limits, no DM neuropathy today Order labs, LDL goal is 70 Will follow-up on ophthalmology valuation at next visit Assessment & Plan (02/13/2024 11:31 AM EST): Pt with hyperglycemia today, high risk for DKA discussed with pt and mother. They will go immediately to [facility] ED. Discussed with pt importance of having small infraction meals and avoid long periods of fasting. No change on meds and follow up with stone gang sawyer or earlier prn. Assessment & Plan (12/30/2023 3:23 PM EDT): - uncontrolled, patient not compliant with [email or web address] appt, last OV was last year. I called endocrinology and appt was given for 01/09/24 at 3pm. Info was given to patient and mother to fu with them, they're advised to bring CGM device. - continue close f/u with [email or web address] - use CGM sensors for fgstk check - continue Lantus 1u/d, I will obtain endo note (no note available in the chart) + Humalog AC meals - f/u with me in 1 month Assessment & Plan (05/08/2022 9:38 AM EST): Dx at age 3. Multiple hospitalization. He is under our care management team. Referrred to endocrinology on 06/07/[address] Ramey. Change testing to 4 times a day in hopes he can get continuous glucose testing monitor. Glucagon and glucose tabs at home Assessment & Plan (03/27/2022 12:18 PM EST): Diagnosed age 3. Here for hospital follow up. In process of changing PCP because his PCP left the area. Will refer to Endocrinology and BHN for behavior support. Will set up apt with new PCP [facility] and we reinforced his cardiology appointment. Resolved Problems Problem Noted Date Diagnosed Date Resolved Date Transient synovitis of left glenohumeral joint 12/30/2023 09/03/2024 Gait disturbance 12/29/2023 11/12/2024 Assessment & Plan (12/30/2023 3:49 PM EDT): - Unclear about his wheelchair bound status at this time, most likely a combination of previus CVAs, recurrent hospitalizations, uncontrolled DM/?neuropathy?/ OA. - Advised to continue PT at home. Will order OT eval for gait retraining, need of assistance ambulatory device - advised to use incentive spirometer to prevent atelectasis. - needs assistance for ADLs, has SLITTER HELPER and lives with parents - prescription for DMEs to prevent falls at home Endocarditis of tricuspid valve 10/22/2023 09/03/2024 History of cardiac arrest 10/22/2023 Chronic anemia 07/15/2023 11/12/2024 Acute bacterial endocarditis 06/29/2023 09/03/2024 Transfusion reaction due to excess volume 05/09/2023 09/03/2024 Overview (07/15/2023): Patient at risk for Transfusion-Associated Circulatory Overload (TACO). The use of slow infusion rates, the administration of phan-transfusion diuretics where not clinically contraindicated, and/or the transfusion of split units of PRBCs should be considered in any future hemotherapy interventions. Consult Transfusion Medicine Services if any questions. GINA (acute kidney injury) 10/22/2022 Volume overload state of heart 10/22/2022 09/03/2024 Leg wound, right, subsequent encounter 05/08/2022 09/03/2024 Assessment & Plan (05/08/2022 9:41 AM EST): DM wound. No evidence of cellulitis . Referrer to wound clinic 05/08/22. Allergic drug reaction 05/08/202209/03 Assessment & Plan (05/08/2022 9:48 AM EST): Rash from morphine. Will treat with benadryl. Anticoagulated on Coumadin 03/27/2022 1 Type 1 diabetes mellitus wit h ketoacidosis without coma 03/27/2022 12/30/2023 Assessment & Plan (03/27/2022 12:20 PM EST): Diagnosed age 3. Here for hospital follow up. In process of changing PCP because his PCP left the area. Will refer to Endocrinology and BHN for behavior support. Will set up apt with new PCP [facility] and we reinforced his cardiology appointment. Encounters * This document contains information received from the source organization and may not represent a complete record from that organization. Date Type Department Care Team Description 01/27/2025 Orders Only GENERIC EXTERNAL DATA DEPARTMENT Provider, Generic External Data 01/24/2025 Patient Outreach [facility] [address], [place] [phone] Ela Webber MD Transition Of Care (Tcm) (HDF scheduled ) 01/20/2025 Telephone [facility] [address] [place] [address] Ela Webber MD Appointment Request 01/19/2025 Telephone [facility] [address], [place] [phone] Ela Webber MD chart prep 01/19/2025 Telephone [facility] [address] [place] [address] Ela Webber MD 01/10/2025 9:30 AM EDT Office Visit [facility] [address] [place], [place] [phone] Kamille Mendoza, OD History of proliferative retinopathy due to diabetes mellitus (Primary Dx); Traction detachment of left retina; 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; Epiretinal membrane (ERM) of both eyes; Retinal arteriolar sclerosis; Corneal scar, right eye 01/10/2025 Travel 01/06/[address] [phone] Ela Webber MD No Show 01/05/2025 Telephone [facility] [address] [place] [phone] Ela Webber MD Chart prep 12/30/2024 Patient Outreach [address] [phone] Ela Webber MD Transition Of Care (Tcm) (HDF unscheduled) 12/30/2024 Patient Outreach [address] [phone] Ela Webber MD 12/23/[address] [phone] Kay Workman, dermatology physician 12/21/[address] [phone] Ela Webber MD 12/07/2024 Patient Outreach [address] [phone] Ela Webber MD Transition Of Care (Tcm) (HDF scheduled and SDOH completed on 08/26/24 ) 11/30/2024 Patient Outreach [address] [address] Ela Webber MD 11/29/2024 Patient Outreach [facility] [address] [place] [id number] Ela Webber MD Transition Of Care (Tcm) (HDF unscheduled LVM ) 11/23/2024 Patient Outreach [address] [phone] Ela Webber MD Transition Of Care (Tcm) (HDF unscheduled) 11/16/2024 Telephone [facility] [address] [place] [phone] Kay Workman RN CGM PA 11/12/2024 12:15 PM EDT Office Visit [address] [phone] Ela Webber MD Type 1 diabetes mellitus with hyperosmolarity, uncontrolled (CMS/HCC) (Primary Dx); Chronic HFrEF (heart failure with reduced ejection fraction) (CMS/HCC); LV (left ventricular) mural thrombus; Acquired hypothyroidism; Diabetic polyneuropathy associated with type 1 diabetes mellitus (CMS/HCC); Generalized anxiety disorder; Chronic pain syndrome; Arm ulcer, with fat layer exposed (CMS/HCC); Other congestive heart failure (CMS/HCC); Polypharmacy 11/12/2024 Travel 11/11/[address] [phone] Ela Webber MD chart prep 11/10/[address] [id number] Ela Webber MD FYI 11/10/2024 Patient Outreach [facility] [address] [place], [place] [phone] Ela Webber MD Transition Of Care (Tcm) (HDF unscheduled. ) 11/09/[address] [phone] Ela Webber MD verbal consent from Last 3 Months Immunizations Immunization Administration Dates Next Due DTaP 10/21/1997, 6,1993,08/22,1993 Hep A, Adult 10/06/2014,08/11/2013 Hep B, Adolescent or Pediatric 02/07/1994,1993 Hib ([facility]) 08/07/1994, 4,1993,06/22 IPV 10/21/1997, 4,1993,06/22 Influenza injectable quadriv alent preservative free 11/29/2022,04/17/2021,04/12/2015 Influenza, IIV3, injectable 11/29/2022,0 03/28/2010,06/03/2005,02/09 Influenza, Split (incl. jessica fied surface antigen) 04/06/2012 Influenza, Unspecified 06/10/2016,2015,03/28/2010,06/03,02/10/2004 Influenza, seasonal, injecta ble, preservative free 12/16/2024,06/10/2016 MMR 10/21/1997,08/07/1994 Meningococcal ACWY, unspecified 05/21/2012,12/01 Meningococcal MCV4P ACYW-135 05/21/2012,12/02/19 07 Moderna Covid-19 Vaccine 6+ Bivalent 03/27/2022 Pneumococcal Conjugate PCV 13 10/05/2014 Pneumococcal Polysaccharide PPSV23 08/30/2016 TD (adult), 2 Lf tetanus tox oid, preservative free, adsorbed 02/22/2017 Td (adult), unspecified 02/22/2017 Tdap 12/01/2006 Varicella 05/21/2012,08/11/1998 Family History Medical History Relation Name Comments Deep vein thrombosis Mother Hypertension Mother Relation Name Status Comments Mother Social History Tobacco Use Types Packs/Day Years Used Date Smoking Tobacco: Never Passive Smoke Exposure: Never Smokeless Tobacco: Never Tobacco Cessation:Counseling Given: Not Answered Alcohol Use Standard Drinks/Week Comments Never 0 [...] not to disclose 2021 10:14 AM EDT Last Filed Vital Signs Vital Sign Reading Time Taken Comments Blood Pressure 110/80 11/12/2024 11:58 AM EDT Pulse 68 11/12/2024 11:58 AM EDT Temperature 36.8 C (98.2 F) 11/12/2024 11:58 AM EDT Respiratory Rate 20 11/12/2024 11:58 AM EDT Oxygen Saturation 100% 02/13/2024 9:26 AM EST Inhaled Oxygen Concentration - - Weight 64.6 kg (142 lb 6.4 oz) 11/12/2024 11:58 AM EDT Height 162.6 cm (5' 4 ) 11/12/2024 11:58 AM EDT Body Mass Index 24.44 11/12/2024 11:58 AM EDT Plan of Treatment Upcoming Encounters Date Type Department Care Team (Late st Contact Info) Description 02/08/2025 10:45 AM EST Office Visit [facility] MEDICINE [address] [place] [address] Ela Webber MD [address] [place] [address] 07/13/2025 9:00 AM EDT Office Visit [facility] OPTOMETRY [address] [place] [address] Kamille Mendoza, OD [address] [place] [address] Health Maintenance Due Date Last Done Comments Dental Prophylaxis 1993 Dental X-Ray: Bitewings 1993 HIV Screening 1993 Lipid Panel 1993 Hepatitis B Vaccines (3 of 3 - 3-dose series) 04/04/1994 02/07/1994, 1993 Family Planning (PISQ) 2008 HPV Vaccines (1 - Male 3-dose series) 2008 Diabetes: Urine Protein Screening 2012 Dental Oral Exam 05/12/2022 11/08/2021 Dental X-Ray: Full Mouth 11/09/2024 11/08/2021 COVID-19 Vaccine ( season) 2024 03/27/2022, 04/17/2021, 01/30/2021 Diabetes: Hemoglobin A1C 02/12/2025 025, 06/23/2024, 12/29/2023, Additional history exists SDOH Screening 08/26/2025 08/26/2024 Disability Screening 09/03/2025 09/03/2024 Alcohol/Substance Use Screening 11/12/2025 11/12/2024 Depression Screening 11/12/2025 11/12/2024, 11/13/19 Diabetes: Foot Exam 11/12/2025 11/12/2024, 11/12/2024, 11/12/2024, Additional history exists Tobacco Screening 11/12/2025 11/12/2024 Eye Exam 01/10/2026 01/10/2025, 12/23, 01/10/2025, Additional history exists DTaP/Tdap/Td Vaccines (9 - Td or Tdap) 02/22/2027 02/22/2017, 02/22/2017, 12/01/2006, Additional history exists Pneumococcal Vaccine: Pediatrics (0 to 5 Years) and At-Risk Patients (6 to 49) Years (3 of 3 - PCV20 or PCV21) 2043 08/30/2016, 10/05/2014 Zoster Vaccines (1 of 2) 2043 RSV Patients and Patients Aged 60 years or older (1 - 1-dose 75+ series) 2068 HIB Vaccines Completed 08/07/1994, 10/23, 1993, Additional history exists IPV Vaccines Completed 10/21/1997, 10/23, 1993, Additional history exists Meningococcal Vaccine Aged Out 05/21/2012 , 05/21/2012, 12/01/2006, Additional history exists No longer eligible based on patient's age to complete this topic Hepatitis A Vaccines Aged Out 10/06/2014, 08/12/19 14 No longer eligible based on patient's age to complete this topic Hepatitis C Screening Completed 11/19/2022 Influenza Vaccine Completed 12/16/2024, , 11/29/2022, Additional history exists Meningococcal B Vaccine Aged Out No l onger eligible based on patient's age to complete this topic RSV under 20 months Aged Out No longe r eligible based on patient's age to complete this topic Rotavirus Vaccines Aged Out No longer eligible based on patient's age to complete this topic Procedures Procedure Name Priority Date/Time Associated Diagnosis Comments GLUCOSE, WHOLE BLOOD Routine 01/27/2025 1:20 PM EST POCT GLYCATED HEMOGLOBIN, TOTAL Routine 11/12/2024 12:11 PM EDT Type 1 diabetes mellitus with hyperosmolarity, uncontrolled (CMS/HCC) POCT GLUCOSE Routine 11/12/2024 12:10 PM EDT Type 1 diabetes mellitus with hyperosmolarity, uncontrolled (CMS/HCC) HEPATITIS PANEL, GENERAL Routine 11/19/2022 12:31 PM EDT PANORAMIC RADIOGRAPHIC IMAGE Routine 11/08/2021 12:00 AM EDT COMPREHENSIVE ORAL EVALUATION - NEW OR ESTABLISHED PATIENT Routine 11/08/2021 12:00 AM EDT from Last 3 Months or Most Recently Relevant to Health Maintenance Results * (ABNORMAL) Glucose, Whole Blood (01/27/2025 1:20 PM EST) Glucose, Whole Blood 308(H) 60 - 115 mg/dL [facility] Comment:METER #: [id number] 0Testing performed in the Endocrinology Department [address], [address], [facility]. 01/27/2025 1:20 PM EST 01/27/2025 1:25 PM EST Generic External Data Provider LAB BLOOD ORDERAB LES Final Result [facility] [address] [place] [phone] * (ABNORMAL) POCT HGB A1C (11/12/2024 12:11 PM EDT) Hemoglobin A1C 9.8(A) 4.0 - 5.7 % QC Media Lot # [id number] Lot# Expiration Date Blood 11/12/2024 12:1 1 PM EDT Ela Webber MD POINT OF CARE TEST ENTER /EDIT ORDERABLES Final Result * (ABNORMAL) POCT Glucose (11/12/2024 12:10 PM EDT) Pathologist [facility] [place] Glucose Blood, POC 343(A) 60 - 200 mg/dL QC Media Lot # [id number] Lot# Expiration Date 021 Blood Capillary blood specimen / Unknown 11/12/2024 12:10 PM EDT Ela Webber MD POINT OF CARE TEST ENTER /EDIT ORDERABLES Final Result * Hepatitis Panel, General (11/19/2022 12:31 PM EDT) Pathologist [facility] [place] Hepatitis A IgM Nonreactive Nonreactive [facility] Comment:IgM antibodies to SPENCE V not detected; does not exclude earlyacute or recovered HAV infection. ~Hepatitis B Surface Antibody REACTIVE Nonreactive [facility] Comment:REACTIVE: > 11.99 mI U/mL Hepatitis B Core Antibody Nonreactive Nonreactive [facility] Hepatitis C Antibody Nonreactive Nonreactive [facility] Comment:Antibodies to HCV no t detected; does not exclude early acuteHCV infection. Hepatitis B Surface Ag Negative Negative [facility] 11/19/2022 12:3 1 PM EDT 11/19/2022 12:36 PM EDT [facility] External Provider LAB BLO OD ORDERABLES Final Result [facility] [address] [place] [address] [phone] from Last 3 Months or Most Recently Relevant to Health Maintenance [place] [address] [place] [address] [employer]ARD [employer] ONE CARE < 65 DENTAL - [facility] MEDICAID DDS ADULT Care Teams Master Baker Relationship Specialty Start Date End Date Ela Webber MD [address] [place] [phone] PCP - General Internal Medicine 11/18/23
--- OUTSIDE RECORDS SUMMARY | 2025-01-27 15:57 | XMS_ITS | Encounter Summary ---
Author Organization [employer] Address [address] [facility] [address] [place] [address] Care Team Providers Care Content Producer Name Role Phone Pavithra Worthy Primary Care Provider [phone] Ela Webber MD Primary Care Provider + Encounter Details Date Type Department Care Team ([facility] st Contact Info) Description 08/20/2022 Telephone [facility] MEDICINE [address] [place], [place] [phone] Pavithra Worthy FNP [address] [place] [address] Social History Tobacco Use Types Packs/Day Years [...] encounter Miscellaneous Notes * Telephone Encounter - Suha Sommers RN - 08/20/2022 11:41 AM EDT Noted. * Telephone Encounter - Kristie Richard - 08/20/2022 11:27 AM EDT Tc oli Morales from [facility] home services calling to inform pt will be re [facility] due to being at [facility] on 08/14 and 08/15 for heart failure and diabetes . Also informs pt INR and labs will be taken on 08/21/22. Any question please call to clarify at phone #[phone] documented in this encounter Plan of Treatment Upcoming Encounters Date Type Department Care Team (Late st Contact Info) Description 02/08/2025 10:45 AM EST Office Visit [facility] MEDICINE [address] [place] [address] Ela Webber MD [address] [place] [address] 07/13/2025 9:00 AM EDT Office Visit [facility] OPTOMETRY [address] [place] [address] Reji, Kamille, OD [address] [place] [address] documented as of this encounter Visit Diagnoses Not on filedocumented in this encounter Care Teams Content Producer Relationship Specialty Start Date End Date Pavithra Worthy FNP [address] [place] [phone] PCP - General Family Medicine 03/06/22 11/17/23 Ela Webber MD [address] [place] [phone] PCP - General Internal Medicine 11/18/23 documented as of this encounter
--- OUTSIDE RECORDS SUMMARY | 2025-01-27 15:57 | XMS_ITS | Encounter Summary ---
Author Organization [employer] Address [address] [facility] [address] [place] [address] Care Team Providers Care Basketball Scout Name Role Phone Pavithra Worthy Primary Care Provider [phone] Ela Webber MD Primary Care Provider + Reason for Visit * Reason Onset Date Comments Hospital Follow-up 05/26/2023 Encounter Details Date Type Department Care Team ([facility] st Contact Info) Description 05/26/2023 Telephone [facility] MEDICINE [address] [place], [place] [phone] Pavithra Worthy FNP [address] [place], [place] [phone] Hospital Follow-up Social History Tobacco Use Types Packs/Day [...] encounter Miscellaneous Notes * Telephone Encounter - Kristie Richard - 05/26/2023 9:09 AM EST Tc from pt requesting a HDF appt. Hospital: [facility] Date of admission: 05/06/23 Discharge date: 05/24/23 Diagnosed: Low blood sugar documented in this encounter Plan of Treatment Upcoming Encounters Date Type Department Care Team (Late st Contact Info) Description 02/08/2025 10:45 AM EST Office Visit [facility] MEDICINE [address] [place] [address] Ela Webber MD [address] [place] [address] 07/13/2025 9:00 AM EDT Office Visit [facility] OPTOMETRY [address] [place] [address] Kamille Mendoza, OD [address] [place] [address] documented as of this encounter Visit Diagnoses Not on filedocumented in this encounter Additional Health Concerns Assessment Noted Time PHQ-9 Depression Total Score: 0 11/30/19 23 1:30 PM EDT documented as of this encounter Care Teams Basketball Scout Relationship Specialty Start Date End Date Pavithra Worthy FNP [address] [place] [address] PCP - General Family Medicine 03/06/22 11/17/23 Ela Webber MD [address] [place] [address] [place] [address] PCP - General Internal Medicine 11/18/23 documented as of this encounter
--- OUTSIDE RECORDS SUMMARY | 2025-01-27 15:57 | XMS_ITS | Data Portability ---
Author Organization [facility] [employer] Address [address] [place] [id number] Care Team Providers Care Capacitor Tester Name Role Phone HIM CCA OTHER Assessment Encounter Date Assessment Date Assessment LastModified by Organization Details LastModified Time 09/07/2024 09/07/2024 I provided real -time medical direction via phone for this encounter, and was available for additional phone based assistance as needed. I have reviewed and agree with the Assessment and Plan as documented by the Welder/Installer. We discussed the diagnostic uncertainty of home visits and the risk associated with this. In this case the patient and I felt this to be an acceptable and reasonable amount of risk given the benefit of avoiding an ED visit. The patient given the opportunity to ask questions. Advised if develops CP/severe SOB/turning blue/uncontrolle d n/v/d or black/bloody emesis or stool/ AMS/ syncope/very painful legs or hot red or cold blue leg /hi fever to call 911- verbalized understanding of instructions [email or web address] Not available 09/07/2024 11:53:05 Plan of Treatment Reminders Order Date Submit Date Provider Last Modified By Organization Details Last Modified Time Details Appointments None recorded. Lab glucose, fingerstick , blood 2024 025 [email or web address] 0 [facility], [address] [place] [address], [phone] 11:41:46 Referral None recorded. Procedures None recorded. Surgeries None recorded. Imaging None recorded. Medication Orders bacitracin 500 unit/gram topical ointment 2024 025 [email or web address] 0 Not available 11:22:39 bacitracin 500 unit/gram topical ointment 2024 025 [facility], [address] [place] [address], [phone], 11:27:45 Patient TargetsNo targets recorded. Patient Instructions Encounter Date Encounter Id Patient Instructions Last Modified By Organization Details Last Modified Time 09/07/2024 [id number] wound care* [email or web address] Not available 11:22:40 Reason for Referral None Reported. Results Created Date Observation Date Name Description Value Unit Range Abnormal Flag Note LastModifiedBy Organization Detail LastModifiedTime 09/08/1909/07/2024 gluco se, finge rstic k, blood Blood Glucose: mg/dl 133 Not Available [facility] [address] [facility], [place], [phone] 09/07/2024 11:41:25 Result Notes None recorded. Medical Equipment None Reported. Allergies No known drug allergies Medications Name Sig Start Date Stop Date Status Note LastModified by Organization Details LastModified Time metolazone 2.5 mg tablet active Not Available Not Available Not Available atorvastatin 80 mg tablet TAKE 1 TABLET BY MOUTH EVERY MORNING active Not Available Not Available No t Available carvedilol 25 mg tablet TAKE 1 TABLET BY MOUTH TWICE DAILY IN THE MORNING AND IN THE EVENING WITH MEALS active Not Available Not Available N ot Available acetaminophe n 325 mg tablet TAKE 3 TABLETS BY MOUTH THREE TIMES A DAY NEEDED active Not Available Not Available No t Available torsemide 20 mg tablet TAKE 2 TABLETS (40 MG) ONCE DAILY IN THE MORNING and TAKE 1 TABLET BY MOUTH AT BEDTIME active Not Available Not Available No t Available amiodarone 200 mg tablet TAKE 1 TABLET BY MOUTH EVERY MORNING active Not Available Not Available No t Available sevelamer HCl 800 mg tablet TAKE 1 TABLET BY MOUTH THREE TIMES DAILY WITH BREAKFAST, WITH LUNCH, WITH DINNER active Not Available Not Available Not Available senna 8.6 mg tablet TAKE 1 TABLET BY MOUTH TWO TIMES A DAY NEEDED FOR CONSTIPATIO N active Not Available Not Available No t Available prochlorpera zine maleate 5 mg tablet active Not Available Not Available Not Available bacitracin 500 unit/gram topical ointment 1 application to each legs sparingly daily then cover with dry sterile dressing x14 days 2024 active Not Available Not Available Not Avai lable melatonin 3 mg tablet TAKE 1 TABLET BY MOUTH AT BEDTIME active Not Available Not Available No t Available levothyroxin e 100 mcg tablet TAKE 1 TABLET BY MOUTH EVERY MORNING BEFORE BREAKFAST active Not Available Not Available No t Available isosorbide mononitrate ER 60 mg tablet,exten ded release 24 hr active Not Available Not Available Not Available famotidine 20 mg tablet TAKE 1 TABLET BY MOUTH EVERY MORNING active Not Available Not Available No t Available ciprofloxaci n 0.3 % eye drops PLACE 2 DROPS INTO THE RIGHT EYE EVERY 4 HOURS FOR 7 DAYS. active Not Available Not Available No t Available pantoprazole 40 mg tablet,delay ed release TAKE 1 TABLET BY MOUTH EVERY MORNING. DO NOT BREAK, CRUSH, DISSOLVE OR CHEW. active Not Available Not Available No t Available mirtazapine 30 mg tablet TAKE 1 TABLET BY MOUTH AT BEDTIME active Not Available Not Available No t Available brimonidine 0.2 % eye drops active Not Available Not Available Not Available Banophen 25 mg capsule TAKE 1 CAPSULE BY MOUTH EVERY 6 HOURS NEEDED FOR ALLERGY SYMPTOMS active Not Available Not Available No t Available hydralazine 50 mg tablet active Not Available Not Available Not Available mirtazapine 15 mg tablet active Not Available Not Available Not Available oxycodone 5 mg tablet TAKE 1 TABLET BY MOUTH EVERY 6 HOURS NEEDED FOR MODERATE PAIN active Not Available Not Available No t Available Alcohol Prep Pads USE DIRECTED 8 TIMES A DAY TO CLEAN AREA PRIOR TO TESTING BLOOD SUGAR AND INJECTING INSULIN active Not Available Not Available No t Available Full Spectrum B-Vitamin C 0.8 mg tablet TAKE 1 CAPSULE BY MOUTH EVERY DAY active Not Available Not Available No t Available duloxetine 30 mg capsule,kris yed release active Not Available Not Available Not Available duloxetine 60 mg capsule,kris yed release TAKE 1 CAPSULE BY MOUTH DAILY active Not Available Not Available Not Available cholecalcife rol (vitamin D3) 25 mcg (1,000 unit) tablet TAKE 1 TABLET BY MOUTH EVERY MORNING active Not Available Not Available No t Available Sure Comfort Pen Needle 31 gauge x 3/16 USE DIRECTED UP TO FOUR TIMES DAILY TO INJECT INSULIN active Not Available Not Available No t Available FreeStyle Lite Strips active Not Available Not Available Not Available Lantus Solostar U-100 Insulin 100 unit/mL (3 mL) subcutaneous pen INJECT 5 UNITS SUBCUTANEOU SLY AT BEDTIME active Not Available Not Available No t Available Humalog KwikPen (U-100) Insulin 100 unit/mL subcutaneous INJECT 3 TO 8 UNITS SUBCUTANEOU SLY BEFORE MEALS ACCORDING TO SLIDING SCALE AND 2 UNITS AT BEDTIME IF SNACKING. active Not Available Not Available No t Available oxycodone 10 mg tablet TAKE 1 TABLET BY MOUTH EVERY 6 HOURS NEEDED FOR PAIN active Not Available Not Available No t Available TRUEplus Lancets 33 gauge USE DIRECTED TO TEST BLOOD SUGAR UP TO FOUR TIMES DAILY BEFORE MEALS active Not Available Not Available No t Available Eliquis 5 mg tablet TAKE 1 TABLET BY MOUTH TWICE DAILY active Not Available Not Available No t Available insulin lispro (U-100) 100 unit/mL subcutaneous half-unit pen active Not Available Not Available Not Available Comfort Touch Plus Pressure Activated Safety Lancets 30 gauge active Not Available Not Available Not Available FreeStyle Anton 3 Sensor device USE DIRECTED. CHANGE SENSORS EVERY 14 DAYS. active Not Available Not Available No t Available Vitals Date Recorded Body height Respiratory rate Heart rate Oxygen saturation Oxygen saturation in Arterial blood by Pulse oximetry Body weight Body temperature Systolic And Diastolic Provider Name and Address Organization Details Last Updated DateTime 5 160.02 cm 16 /min 91 /min 98 % 98 % 86028.3 28 g 98.3 [degF] 150/88 mm[Hg] Not Available [employer] - production 5 11:13:39 Social History None recorded. Functional Status None recorded. Mental Status None recorded. Family History Nothing Reported. Medical History No medical history recorded. Past Encounters Encounter ID Performer Location Encounter Start Date Encounter Closed Date Diagnosis/Indication Diagnosis SNOMED-CT Code Diagnosis ICD10 Code Diagnosis IMO Codes Diagnosis Note [id number] Sue Sheppard MD [facility] ED Medical [facility] [address] [place] [address] 09/07/2024 11:11:19 09/07/2024 22:25:34 Open wound of lower limb 10868081 S81.801A S81.802A [id number] In a diabetic with ESRDreview ed signs of infection, good handwashin g and wound care, reinforced not to scratch the area due to risk of infection. Advised close follow-up with his PCP. Patient also has our number if he needs a repeat visit, encouraged to callBonny coleman for Antione Thibodeaux who requested the visitPatie nt's blood sugar is currently well-contr olled-medi c unable to get a BMP, patient states usually requires ultrasound guidance. Reviewed avoiding concentrat ed sweets, sodas, chips, candy as he admits to being a junk food fan and the risks of those-to combine complex carbs and protein in a limited way with each meal-zulmae nt would benefit from a dietary consult-andrew whitakered with patient as he has not had 1 -note sent to care team via crc Health Concerns Section Related Observation LastModified by Organization Detai ls LastModified Time None Recorded Concern Status LastModified by Organization Details LastModified Time None Recorded Advance Directives Directive None Recorded Payers Insurance Date Sequence Insurance Name Policy Number Policy Conroy Covered Member ID Conroy Member ID Guarantor Name 09/07/2024 1 [facility] - DOS ON OR AFTER 2022 - DUAL ELIGIBLE - CARE HOME OPTIONS AND ONE CARE (MEDICARE REPLACEMENT/ADV ANTAGE - HMO) Albert Wynn [id number] Albert Alexanderarez Notes Date Note Type Note Provider Name and Address Organization Details Recorded Time 09/07/2024 text/html ROS as noted in the HPI HPI: Member's nurse from the [facility] palliative care Nehal Woodall APRN FINISHING RANGE OPERATOR-BC, ACCN reached out to [facility] Solar Project Engineer Sue Sheppard MD to inquire about visiting this member to initiate an intake for continuous care due to multiple ED visit and hospitalizations within the past year. This is response from the [facility] Solar Project Engineer. Thank you for thinking of our service and of something that is potentially beneficial for your patient.He sounds like a very sick, complex young patient. If he has [facility] insurance, [facility] might be very helpful here. I would suggest asking his care team to put in an original visit request with [facility] if the patient is willing to have us come to the house. This is the type of patient where we should be in contact with, follow-up closely with his care team if we do have a visit . care partner Antione Carlos Eduardo reached out to the member and his mother and explained the [facility] program once again and asked if member would like an initial visit from [facility]. Member has agreed to schedule a visit. Care team would like [facility] to be aware that member may frequent visits to the ED and is hospitalize often or kept overnight and may not be home for schedule visit, please reach out to member prior of visit. ...................... ...................... ...................... ...................... ...................... ...................... ......... [facility] Nurse Triage Notes (Issa Corbett): Reason For Request: Wellness Check Chief Complaints: Diabetes Related, Nausea / Vomiting, Diarrhea, Weakness PMH: Chronic Kidney Disease, Chronic Pain, Congestive Heart Failure, Depression, Diabetes Mellitus Type 1, Gastroesophageal Reflux Disease (GERD), Hypertension, Myocardial Infarction, Stroke, Other PMH Reviewed at 09/03/2024:52 Allergies Reviewed at 09/03/2024:52 Comments: HPI reviewed by this RN, no further information needed to process visit -Brett Corbett RN 09/04 @ 1025- Per [facility] dispatcher, patient requesting visit be scheduled for Friday, 09/06 -Brett Corbett RN SEGMD: Fredi Woodall MARINE BIOLOGIST referral:Albert Rose is a 29-year-old man with diagnoses of type 1 diabetes, anxiety/depression, ESRD on hemodialysis, heart failure with reduced EF, 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 Milton frequently presents to the emergency department with severe DKA or low blood pressure, he is often experiencing nausea and/or abdominal pain as well. He has had many admissions since June 2024. Milton lives at home with his mother who is his healthcare proxy and is [place]ib[place]ian-speaking only. Welder/Installer Organization Information for [employer] Name: [employer]. Address: [address] [place] [address], Solar Project Engineer: Mayank VORA No.: [id number] Welder/Installer POC Test Results from [employer] [facility] Blood Glucose Measurement (11:52:55) Blood Glucose: 133 mg/dL ...................... ...................... ...................... ...................... ...................... ...................... ......... Welder/Installer Note From Rene Dejesus: Dispatched to the call address for the well being check of young male. Pt is 29 y.o male with extensive medical history including but not limited to type 1 diabetes with Hx of DKA, hemodialysis, CHF and tachycardia. Pt has been hospitalized multiple times over the last several years for various reasons but mostly related to diabetic issues. Pts nurse reached out to [facility] and requested a well being check and introduction to the program for him. Pt states he was advised of the program and has a basic understanding of services offered. Pt states he has two open wounds on his legs that started as insect bites that he scratched into what they are now. Pt advises he has never met with a dietitian. He denies chest pain, diff breathing/sob, fevers, n/v/d or other complaints at this time. Pt was found sitting on living room couch, CAOx4, airway open and patent, breathing non labored, able to speak in full sentences, -JVD, -HEENT, skin PWD with good turgor, mucous membranes pink and moist, -edema/swell, pupils PERRL, lungs CTA, abd soft non tender/distended, +s1/s2-pulse regular. Open wounds to lower right lateral leg and smaller open wound to lower left lateral/anterior leg, non infected appearing. Well being check. Pt was assessed. C consulted. Blood draw attempted (left hand)-unsuccessful. Pt had no other visible or palpable IV access (Pt advises that they always use ultrasound for venous access). POC blood glucose finger stick (133). [facility] advised of results. Red flags discussed. ALL times are approx. [facility] Lab Orders: glucose, fingerstick, blood: Performed [facility] Medication Orders: bacitracin 500 unit/gram topical ointment: Administered ...................... ...................... ...................... ...................... ...................... ...................... ......... [facility] Consulted: Sue Sheppard ...................... ...................... ...................... ...................... ...................... ...................... ......... Disposition: Fulfilled Sue Sheppard MD [address] [place] [address],[address], [place], [address], [facility] 09/07/2024 13:58:48
--- OUTSIDE RECORDS SUMMARY | 2025-01-27 15:57 | XMS_ITS | Encounter Summary ---
Author Organization [employer] Address [address] [facility] [address] [place] [address] Care Team Providers Care Lithographic Photographer Apprentice Name Role Phone Pavithra Worthy Primary Care Provider [phone] Ela Webber MD Primary Care Provider + Reason for Visit * Reason Onset Date Comments FYI 06/13/2023 Encounter Details Date Type Department Care Team ([facility] st Contact Info) Description 06/13/2023 Telephone [facility] [address] [place], [place] [phone] Pavithra Worthy FNP [address] [place], [place] [phone] FYI Social History Tobacco Use Types Packs/Day [...] * Telephone Encounter - Kristie Richard - 06/13/2023 10:22 AM EDT Tc from [place] with [facility] calling to inform was unable to renew services today . States will be going again to pt home Friday06/15/23 to try to renew services . documented in this encounter Plan of Treatment Upcoming Encounters Date Type Department Care Team (Late st Contact Info) Description 02/08/2025 10:45 AM EST Office Visit [facility] [address] [place] [address] Ela Webber MD [address] [place] [address] 07/13/2025 9:00 AM EDT Office Visit [facility] OPTOM[facility] [address] [place] [address] Kamille Mendoza, OD [address] [place] [address] documented as of this encounter Visit Diagnoses Not on filedocumented in this encounter Additional Health Concerns Assessment Noted Time PHQ-9 Depression Total Score: 0 11/30/19 23 1:30 PM EDT documented as of this encounter Care Teams Lithographic Photographer Apprentice Relationship Specialty Start Date End Date Pavithra Worthy FNP [address] [place] [address] PCP - General Family Medicine 03/06/22 11/17/23 Ela Webber MD [address] [place] [address] [place] [address] PCP - General Internal Medicine 11/18/23 documented as of this encounter
--- OUTSIDE RECORDS SUMMARY | 2025-01-27 15:57 | XMS_ITS | Encounter Summary ---
Author Organization [employer] Address [address] [facility] 7[address] [place] [address] Care Team Providers Care Prison Classification Counselor Name Role Phone Ela Webber MD Primary Care Provider + Reason for Visit * Reason Onset Date Comments Call Back Request 06/03/2024 Encounter Details Date Type Department Care Team ([facility] Contact Info) Description 06/03/2024 Telephone [facility] [address] [place], [place] [phone] Ela Webber MD [address] [place] [address] Call Back Request Social History Tobacco Use Types Packs/Day Years [...] encounter Miscellaneous Notes * Telephone Encounter - Gabriel Sanchez - 06/03/2024 8:58 AM EDT Tc from mom requesting a callback , mom inform she been calling requesting a callback no calls are return. Mom ask verse writer to verify appointments as 2 last appointments where cancelled. Mom states please call her for anything that has to do with pt as he wont return calls or answer phone calls. Mom inform pt is diabetic and that worries her he don't get treated. Kia (MOM) [phone] documented in this encounter Plan of Treatment Upcoming Encounters Date Type Department Care Team (Late st Contact Info) Description 02/08/2025 10:45 AM EST Office Visit [facility] [address] [place] [address] Ela Webber MD [address] [place] [address] 07/13/2025 9:00 AM EDT Office Visit [facility] OPTOMETRY [address] [place] [address] Kamille Mendoza OD [address] [place] [address] documented as of this encounter Visit Diagnoses Not on filedocumented in this encounter Additional Health Concerns Assessment Noted Time PHQ-9 Depression Total Score: 0 11/30/19 23 1:30 PM EDT documented as of this encounter Care Teams Prison Classification Counselor Relationship Specialty Start Date End Date Ela Webber MD [address] [place] [address] PCP - General Internal Medicine 11/18/23 documented as of this encounter
--- OUTSIDE RECORDS SUMMARY | 2025-01-27 15:57 | XMS_ITS | Encounter Summary ---
Author Organization [employer] Address [address] [facility] 7[address] [place] [address] Care Team Providers Care Rotary Dryer Operator Name Role Phone Pavithra Worthy Primary Care Provider [phone] Ela Webber MD Primary Care Provider + Encounter Details Date Type Department Care Team ([facility] st Contact Info) Description 04/30/2023 Telephone [facility] [address] [place], [place] [phone] Pavithra Worthy FNP [address] [place], [place] [phone] Social History Tobacco Use Types Packs/Day Years [...] Description 02/08/2025 10:45 AM EST Office Visit [facility] [address] [place] [address] Ela Webber MD [address] [place] [address] 07/13/2025 9:00 AM EDT Office Visit [facility] OPTOMETRY [address] [place] [address] Reji, Kamille, OD [address] [place] [address] documented as of this encounter Visit Diagnoses Not on filedocumented in this encounter Additional Health Concerns Assessment Noted Time PHQ-9 Depression Total Score: 0 11/30/19 23 1:30 PM EDT documented as of this encounter Care Teams Rotary Dryer Operator Relationship Specialty Start Date End Date Pavithra Worthy FNP [address] [place] [address] PCP - General Family Medicine 03/06/22 11/17/23 Ela Webber MD [address] [place] [address] PCP - General Internal Medicine 11/18/23 documented as of this encounter
--- OUTSIDE RECORDS SUMMARY | 2025-01-27 15:57 | XMS_ITS | Encounter Summary ---
Author Organization [employer] Address [address] [facility] [address] [place] [address] Care Team Providers Care Superintendent Drivers Name Role Phone Pavithra Worthy Primary Care Provider [phone] Ela Webber MD Primary Care Provider + Reason for Visit * Reason Onset Date Comments FYI 07/03/2022 Encounter Details Date Type Department Care Team ([facility] st Contact Info) Description 07/03/2022 Telephone [facility] [address] [place], [place] [phone] Pavithra Worthy FNP [address] [place] [address] FYI Social History Tobacco Use Types Packs/Day [...] suspected to have Coronavirus/COVID-19? No / Unsure 06/19/2022 9:11 AM EDT documented as of this encounter Miscellaneous Notes * Telephone Encounter - Suha Sommers RN - 07/03/2022 3:30 PM EDT Noted. [facility] was called yesterday and informed INR is managed at the coumadin clinic. Still awaiting call from pt from LVM left to schedule HDF as current PCP has never seen pt. * Telephone Encounter - Christeljunito Parish Dwyer - 07/03/2022 12:41 PM EDT Tc from Jessica Nurse [facility] informing Provider that pt has missed Nurse visit today for anINR and has been missing several nursing Visits Please contact Jessica at [phone] documented in this encounter Plan of Treatment Upcoming Encounters Date Type Department Care Team (Late st Contact Info) Description 02/08/2025 10:45 AM EST Office Visit [facility] [address] [place] [address] Ela Webber MD [address] [place] [address] 07/13/2025 9:00 AM EDT Office Visit [facility] OPTOMETRY [address] [place] [address] Kamille Mendoza, OD [address] [place] [address] documented as of this encounter Visit Diagnoses Diagnosis Type 1 diabetes mellitus with hyperosmolarity, uncontrolled (HCC) documented in this encounter Care Teams Superintendent Drivers Relationship Specialty Start Date End Date Pavithra Worthy FNP [address] [place] [address] PCP - General Family Medicine 03/06/22 11/17/23 Ela Webber MD [address] [place] [address] PCP - General Internal Medicine 11/18/23 documented as of this encounter
--- OUTSIDE RECORDS SUMMARY | 2025-01-27 15:57 | XMS_ITS | Encounter Summary ---
Author Organization [employer] Address [address] [facility] 7t [place] [address] Care Team Providers Care Wheat Inspector Name Role Phone Ela Webber MD Primary Care Provider + Reason for Visit * Reason Comments Med Refill Encounter Details Date Type Department Care Team ([facility] st Contact Info) Description 11/18/2023 Refill [facility] MED[facility]INE [address], [place] [phone] Pavithra Worthy FNP [address] [place] [address] Gastroesophageal reflux disease without esophagitis Social History [...] 10:45 AM EST Office Visit [facility] MED[facility]INE [address] [place] [address] Ela Webber MD [address] [place] [address] 07/13/2025 9:00 AM EDT Office Visit [facility] OPTOMETRY [address] [place] [address] Reji, Kamille, OD [address] [place] [address] documented as of this encounter Visit Diagnoses Diagnosis Gastroesophageal reflux disease without esophagitis Esophageal reflux documented in this encounter Additional Health Concerns Assessment Noted Time PHQ-9 Depression Total Score: 0 11/30/19 23 1:30 PM EDT documented as of this encounter Care Teams Wheat Inspector Relationship Specialty Start Date End Date Ela Webber MD [address] [place] [id number] PCP - General Internal Medicine 11/18/23 documented as of this encounter
--- OUTSIDE RECORDS SUMMARY | 2025-01-27 15:57 | XMS_ITS | Encounter Summary ---
Author Organization [employer] Address [address] [facility] 7t [place] [address] Care Team Providers Care Senior Informatica Etl Developer Name Role Phone Pavithra Worthy Primary Care Provider [phone] Ela Webber MD Primary Care Provider + Reason for Visit * Reason Onset Date Comments Durable Medical Equipment 10/01/2023 FYI 10/01/2023 Encounter Details Date Type Department Care Team (Late st Contact Info) Description 10/01/2023 Telephone [facility] MED[facility]INE [address] [place], [place] [phone] Pavithra Worthy FNP [address] [place], [place] [phone] Durable Medical Equipment; FYI Social History Tobacco Use Types Packs/Day [...] Telephone Encounter - Zhanna Mistry RN - 10/01/2023 10:26 AM EDT Please review and advise for below request. * Telephone Encounter - Yohannes Reynolds - 10/01/2023 8:37 AM EDT [facility] calling to inform the provider a OT evaluation was done on 09/29 and as of right now is not seeking for verbal orders however is requesting for shower grab bars documented in this encounter Plan of Treatment Upcoming Encounters Date Type Department Care Team (Late st Contact Info) Description 02/08/2025 10:45 AM EST Office Visit [facility] MEDICINE [address] [place] [address] Ela Webber MD [address] [place] [address] 07/13/2025 9:00 AM EDT Office Visit [facility] OPTOMETRY [address] [place] [address] Kamille Mendoza, OD [address] [place] [address] documented as of this encounter Visit Diagnoses Not on filedocumented in this encounter Additional Health Concerns Assessment Noted Time PHQ-9 Depression Total Score: 0 11/30/19 23 1:30 PM EDT documented as of this encounter Care Teams Senior Informatica Etl Developer Relationship Specialty Start Date End Date Pavithra Worthy FNP [address] [place] [address] PCP - General Family Medicine 03/06/22 11/17/23 Ela Webber MD [address] [place] [address] PCP - General Internal Medicine 11/18/23 documented as of this encounter
--- OUTSIDE RECORDS SUMMARY | 2025-01-27 15:57 | XMS_ITS | Encounter Summary ---
Author Organization [employer] Address [address] [facility] 7t [place] [address] Care Team Providers Care Mechanical Ordnance Assembler Name Role Phone Pavithra Worthy Primary Care Provider [phone] Ela Webber MD Primary Care Provider + Encounter Details Date Type Department Care Team (Late st Contact Info) Description 12/11/2022 Telephone [facility] [address] [place] [phone] Pavithra Worthy FNP [address] [place] [address] Social History Tobacco Use Types Packs/Day Years Used Date Smoking Tobacco: Never Passive Smoke Exposure: Never Smokeless Tobacco: Never Alcohol Use Standard Drinks/Week Comments Never 0 (1 standard drink = 0.6 oz pur e alcohol) Depression Answer Date Recorded Patient Health Questionnaire-9 Score 0 11/29/2022 Depression Answer Date Recorded Patient Health Questionnaire-2 [...] Description 02/08/2025 10:45 AM EST Office Visit [facility] [address] [place] [phone] Ela Webber MD [address] [place], [place] [phone] 07/13/2025 9:00 AM EDT Office Visit [facility] OPTOMETRY [address] [place], [place] [phone] Kamille Mendoza, OD [address] [place] [address] documented as of this encounter Visit Diagnoses Not on filedocumented in this encounter Additional Health Concerns Assessment Noted Time PHQ-9 Depression Total Score: 0 11/30/19 23 1:30 PM EDT documented as of this encounter Care Teams Mechanical Ordnance Assembler Relationship Specialty Start Date End Date Pavithra Worthy FNP [address] [place] [address] PCP - General Family Medicine 03/06/22 11/17/23 Ela Webber MD [address] [place], [place] [phone] PCP - General Internal Medicine 11/18/23 documented as of this encounter
--- OUTSIDE RECORDS SUMMARY | 2025-01-27 15:57 | XMS_ITS | Encounter Summary ---
Author Organization [employer] Address [address] [facility] 7t [place] [address] Care Team Providers Care Video Intern Name Role Phone Pavithra Worthy Primary Care Provider [phone] Ela Webber MD Primary Care Provider + Encounter Details Date Type Department Care Team (Late st Contact Info) Description 10/02/2022 Orders Only [facility] MED[facility]INE [address] [place] [address] Pavithra Worhty FNP [address] [place] [address] Social History Tobacco Use Types Packs/Day Years [...] Description 02/08/2025 10:45 AM EST Office Visit [facility] MEDICINE [address] [place] [address] Ela Webber MD [address] [place] [address] 07/13/2025 9:00 AM EDT Office Visit [facility] OPTOMETRY [address] [place], [place] [phone] Kamille Mendoza, OD [address] [place] [address] documented as of this encounter Visit Diagnoses Not on filedocumented in this encounter Care Teams Video Intern Relationship Specialty Start Date End Date Pavithra Worthy FNP [address] [place] [address] PCP - General Family Medicine 03/06/22 11/17/23 Ela Webber MD [address] [place], [place] [phone] PCP - General Internal Medicine 11/18/23 documented as of this encounter
--- OUTSIDE RECORDS SUMMARY | 2025-01-27 15:57 | XMS_ITS | Encounter Summary ---
Author Organization [employer] Address [address] [facility] 7[address] [place] [address] Care Team Providers Care Molded Goods Spot Picker Name Role Phone Pavithra Worthy Primary Care Provider + Ela Webber MD Primary Care Provider + Encounter Details Date Type Department Care Team (Late st Contact Info) Description 04/04/2022 Orders Only [facility] [address] [place], [place] [phone] Marybel Jackson FNP Social History Tobacco Use Types Packs/Day Years [...] Description 02/08/2025 10:45 AM EST Office Visit [facility] [address] [place], [place] [phone] Ela Webber MD [address] [place] [address] 07/13/2025 9:00 AM EDT Office Visit [facility] OPTOMETRY [address] [place], [place] [phone] Kamille Mendoza, OD [address] [place] [address] documented as of this encounter Visit Diagnoses Not on filedocumented in this encounter Care Teams Molded Goods Spot Picker Relationship Specialty Start Date End Date Pavithra Worthy FNP [address] [place] [address] PCP - General Family Medicine 03/06/22 11/17/23 Ela Webber MD [address] [place], [place] [phone] PCP - General Internal Medicine 11/18/23 documented as of this encounter
--- OUTSIDE RECORDS SUMMARY | 2025-01-27 15:58 | XMS_ITS | Clinical Summary ---
Author Organization [facility] Address [address] [place] [phone] Phone Care Team Providers Care Cost Reduction Engineer Name Role Phone Marcell Worthynne Primary Care Provider [phone] Medications carvedilol (COREG) 25 MG tablet Take 25 mg by mouth in the morning and 25 mg in the evening. 3 Active hydrALAZINE 50 MG tablet 3 Active Lantus SoloStar 100 UNIT/ML injection 3 Active melatonin 3 MG tablet 3 Active mirtazapine (REMERON) 15 MG tablet 3 Active pantoprazole (PROTONIX) 40 MG EC tablet Take 40 mg by mouth 1 (one) time each day 3 Active torsemide (DEMADEX) 20 MG tablet Take 40 mg by mouth 1 (one) time each day 3 Active warfarin (COUMADIN) 5 MG tablet TAKE 1 TO 2 TABLETS BY MOUTH DAILY DIRECTED BY THE COUMADIN CLINIC 3 Active atorvastatin (LIPITOR) 80 MG tablet 4 Active Eliquis 5 MG tablet Take 5 mg by mouth in the morning and 5 mg in the evening. 4 Active amiodarone (PACERONE) 200 MG tablet Take 200 mg by mouth 1 (one) time each day 4 Active acetaminophen (TYLENOL) 325 MG tablet Take 325 mg by mouth every 6 (six) hours if needed 4 Active famotidine (PEPCID) 20 MG tablet Take 20 mg by mouth 1 (one) time each day 4 Active levothyroxine (SYNTHROID, LEVOTHROID) 100 MCG tablet Take 100 mcg by mouth 1 (one) time each day Active Sodium Zirconium Cyclosilicate (Lokelma) 5 g pack Take 1 Package by mouth Every fri, fri, and friday Active Insulin Lispro 100 UNIT/ML solution Inject as directed As directed ~ sliding scale Active Cholecalciferol (Vitamin D-3) 25 MCG (1000 UT) capsule Take by mouth Active metOLazone 5 MG tablet Take 1 tablet (5 mg total) by mouth 4 (four) times a week: , , Sat, Sun Take on non-dialysis days 16 tablet 11 5 07/06/19 26 Active Active Problems Problem Noted Date Diagnosed Date Generalized anxiety disorder 07/15/2022 Hypertensive disorder 07/15/2022 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 CT of head abnormal 08/04/2021 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 Type 1 diabetes mellitus 02/23/2003 Encounters Date Type Department Care Team Description 01/07/2025 Treatment [facility] [address] [phone] Sascha Magallon MD End stage renal disease; Dependence on renal dialysis 11/17/2024 Treatment [facility] [address] [phone] Sascha Magallon MD End stage renal disease; Dependence on renal dialysis 11/03/2024 Orders Only [facility] [address] [address] Sascha Magallon MD from Last 3 Months Immunizations Immunization Administration Dates Next Due DTaP 10/21/1997, 6,1993,08/22,1993 Hep B, Adolescent or Pediatric 02/07/1994,1993 Hepatitis A 10/06/2014,08/11/2013 Hib (HbOC) 08/07/1994, 4,1993,06/22 IPV 10/21/1997, 4,1993,06/22 Influenza, Quadrivalent, Pre servative Free 04/17/2021 Influenza, Unspecified 06/10/2016,2015,03/28/2010,06/03,02/10/2004 MMR 10/21/1997,08/07/1994 Meningococcal, Unspecified 05/21/2012,12/01/2006 Moderna SARS-COV-2 04/17/2021,01/30/2021 Pneumococcal Conjugate 13-Valent 10/05/2014 Pneumococcal Polysaccharide 08/30/2016 Td, Unspecified 02/22/2017 Tdap 12/01/2006 Varicella 05/21/2012,08/11/1998 Social History Tobacco Use Types Packs/Day Years Used Date Smoking Tobacco: Never Assessed Sex and Gender Information Value Date Recorded Sex Assigned at Not on file Legal Sex Male 11:26 AM EDT Gender Identity Not on file Sexual Orientation Not on file Plan of Treatment Health Maintenance Due Date Last Done Comments Hepatitis B Vaccine (3 of 5 - Risk Dialysis 4-dose series) 03/07/1994 02/07/1994, 1993 Diabetes: Ophthalmology Exam 08/05/2021 Diabetes: Pedal Pulse Checked 08/05/2021 Diabetes: Sensory Foot Exam 08/05/2021 Diabetes: Visual Foot Exam 08/05/2021 Pneumococcal Vaccine: Peds ( 0 to 5 Years) and At-Risk Patients (6 to 49 Years) (3 of 3 - PCV20 or PCV21) 08/30/2021 08/30/2016, 10/05/2014 Influenza Vaccine (#1) 2024 , 04/17/2021, 06/10/2016, Additional history exists Diabetes: Hemoglobin A1C 03/24/2025 025, 11/12/2024, 09/29/2024, Additional history exists Procedures Procedure Name Priority Date/Time Associated Diagnosis Comments HEMOGLOBIN AND HEMATOCRIT, BLOOD Routine 01/07/2025 3:00 AM EDT HEMOGLOBIN A1C Routine 12/22/2024 3:00 AM EDT TRANSFERRIN SATURATION Routine 3:00 AM EDT PROTEIN, TOTAL, SERUM Routine 12/22/2024 3:00 AM EDT MAGNESIUM Routine 12/22/2024 3:00 AM EDT LIPID PANEL Routine 12/22/2024 3:00 AM EDT ELECTROLYTE PANEL Routine 12/22/2024 3:0 0 AM EDT LIH (HC) Routine 12/22/2024 3:00 AM EDT CREATININE, SERUM Routine 12/22/2024 3:0 0 AM EDT LACTATE DEHYDROGENASE Routine 12/22/2024 3:00 AM EDT BILIRUBIN, TOTAL Routine 12/22/2024 3:00 AM EDT ALT Routine 12/22/2024 3:00 AM EDT GLUCOSE, RANDOM Routine 12/22/2024 3:00 AM EDT AST Routine 12/22/2024 3:00 AM EDT BUN/CREATININE RATIO Routine 12/22/2024 3:00 AM EDT CALCIUM PHOSPHORUS PRODUCT, ADJUSTED (HC) Routine 12/22/2024 3:00 AM EDT ALKALINE PHOSPHATASE Routine 12/22/2024 3:00 AM EDT PTH, INTACT Routine 12/22/2024 3:00 AM EDT FERRITIN Routine 12/22/2024 3:00 AM EDT KT/V NATURAL LOG, URR (HC) Routine 12/22/2024 3:00 AM EDT CBC AND DIFFERENTIAL Routine 12/22/2024 3:00 AM EDT HEMOGLOBIN AND HEMATOCRIT, BLOOD Routine 12/08/2024 3:00 AM EDT KT/V NATURAL LOG, URR (HC) Routine 12/01/2024 3:00 AM EDT LIH (HC) Routine 12/01/2024 3:00 AM EDT TRANSFERRIN SATURATION Routine 3:00 AM EDT PROTEIN, TOTAL, SERUM Routine 11/24/2024 3:00 AM EDT ELECTROLYTE PANEL Routine 11/24/2024 3: 00 AM EDT MAGNESIUM Routine 11/24/2024 3:00 AM EDT LIH (HC) Routine 11/24/2024 3:00 AM EDT GLUCOSE, RANDOM Routine 11/24/2024 3:00 AM EDT LACTATE DEHYDROGENASE Routine 11/24/2024 3:00 AM EDT CREATININE, SERUM Routine 11/24/2024 3:0 0 AM EDT BUN/CREATININE RATIO Routine 11/24/2024 3:00 AM EDT BILIRUBIN, TOTAL Routine 11/24/2024 3:00 AM EDT AST Routine 11/24/2024 3:00 AM EDT ALT Routine 11/24/2024 3:00 AM EDT CALCIUM PHOSPHORUS PRODUCT, ADJUSTED (HC) Routine 11/24/2024 3:00 AM EDT ALKALINE PHOSPHATASE Routine 11/24/2024 3:00 AM EDT FERRITIN Routine 11/24/2024 3:00 AM EDT KT/V NATURAL LOG, URR (HC) Routine 11/24/2024 3:00 AM EDT CBC AND DIFFERENTIAL Routine 11/24/2024 3:00 AM EDT HEMOGLOBIN AND HEMATOCRIT, BLOOD Routine 11/12/2024 3:00 AM EDT HEMOGLOBIN Routine 11/03/2024 3:00 AM EDT FERRITIN Routine 10/27/2024 3:00 AM EDT TRANSFERRIN SATURATION Routine 3:00 AM EDT PROTEIN, TOTAL, SERUM Routine 10/27/2024 3:00 AM EDT MAGNESIUM Routine 10/27/2024 3:00 AM EDT ELECTROLYTE PANEL Routine 10/27/2024 3:0 0 AM EDT LIH (HC) Routine 10/27/2024 3:00 AM EDT GLUCOSE, RANDOM Routine 10/27/2024 3:00 AM EDT LACTATE DEHYDROGENASE Routine 10/27/2024 3:00 AM EDT CREATININE, SERUM Routine 10/27/2024 3:0 0 AM EDT BILIRUBIN, TOTAL Routine 10/27/2024 3:00 AM EDT BUN/CREATININE RATIO Routine 10/27/2024 3:00 AM EDT AST Routine 10/27/2024 3:00 AM EDT ALKALINE PHOSPHATASE Routine 10/27/2024 3:00 AM EDT ALT Routine 10/27/2024 3:00 AM EDT CALCIUM PHOSPHORUS PRODUCT, ADJUSTED (HC) Routine 10/27/2024 3:00 AM EDT CBC AND DIFFERENTIAL Routine 10/27/2024 3:00 AM EDT KT/V NATURAL LOG, URR (HC) Routine 10/27/2024 3:00 AM EDT from Last 3 Months Results * (ABNORMAL) Hemoglobin and hematocrit (01/07/2025 3:00 AM EDT) Only the most recent of3 resultswithin the time period is included. Hgb 10.0(L) 13.7 - 17.5 g/dL [facility] Hematocrit 31.8(L) 40.1 - 51.0 % [facility] Hemoglobin x 3 30.0(L) 41.1 - 52.5 g/dL [facility] 01/07/2025 3:00 AM EDT 01/08/2025 1:44 PM EDT Sascha Magallon MD LAB BLOOD ORDERABLES Final Re sult Performing Organization Address City/[facility]/ZIP Co de Phone Number [facility] [address] [place] [address] * LIH (12/22/2024 3:00 AM EDT) Only the most recent of4 resultswithin the time period is included. Lipemia Normal Normal [facility] Icterus Normal Normal [facility] Hemolysis Normal Normal [facility] 12/22/2024 3:00 AM EDT 12/23/2024 1:41 PM EDT Sascha Magallon MD LAB [id number] SOLICITED RESULTS Final Result Performing Organization Address City/[facility]/ZIP Co de Phone Number [facility] [address] [place] [address] * (ABNORMAL) Kt/V Natural Log, URR (12/22/2024 3:00 AM EDT) Only the most recent of4 resultswithin the time period is included. Treatment Time 149 min [facility] Pre-Weight, lb 64.8 kg [facility] Post-Weight, lb 62.9 kg [facility] Ultrafiltration Rate 12 <=13 mL/kg/hr [facility] Comment: Recommend achieving Ultrafiltration Rate (UFR) <=10 mL/kg/hr References: Madalyn GALDAMEZ et al. Kidney Int. 2010; 79(2):250-257 BUN 30(H) 7 - 25 mg/dL [facility] BUN Post Dialysis 9 7 - 25 mg/dL [facility] UREA REDUCTION RATIO (%) 70 >=65 % [facility] Kt/V Natural Log 1.36 >=1.2 [facility] 12/22/2024 3:00 AM EDT 12/23/2024 1:41 PM EDT Sascha Magallon MD LAB [id number] SOLICITED RESULTS Final Result [facility] [address] [place] [address] * (ABNORMAL) Calcium Phosphorus Product, Adjusted (12/22/2024 3:00 AM EDT) Only the most recent of3 resultswithin the time period is included. Albumin 3.9 3.6 - 5.4 g/dL [facility] Calcium 8.5(L) 8.6 - 10.3 mg/dL [facility] Phosphorus, Serum 3.8 2.5 - 5.0 mg/dL [facility] Ca*PO4 32.3 <55.0 mg2/dL2 [facility] Calcium, Adjusted Total 8.6 8.6 - 10.3 mg/dL [facility] CA*PO4 CORRCTD 32.7 <55.0 mg2/dL2 [facility] 12/22/2024 3:00 AM EDT 12/23/2024 1:41 PM EDT us Sascha Magallon MD LAB [id number] SOLICITED RESULTS Final Result Performing Organization Address [facility] de Phone Number [facility] [address] [place] [address] * BUN/CREATININE RATIO (12/22/2024 3:00 AM EDT) Only the most recent of3 resultswithin the time period is included. BUN/Creatinine Ratio 10.1 <=23.0 [facility] 12/22/2024 3:00 AM EDT 12/23/2024 1:41 PM EDT Sascha Magallon MD LAB [id number] SOLICITED RESULTS Final Result Performing Organization Address [facility] de Phone Number [facility] [address] [place] [address] * (ABNORMAL) TSAT (12/22/2024 3:00 AM EDT) Only the most recent of3 resultswithin the time period is included. Iron 44(L) 65 - 175 ug/dL [facility] Transferrin 123(L) 215 - 365 mg/dL [facility] TIBC 172(L) 211 - 406 ug/dL [facility] Iron Saturation (TSat) 26 22 - 52 % [facility] 12/22/2024 3:00 AM EDT 12/23/2024 1:41 PM EDT Sascha Magallon MD LAB BLOOD ORDERABLES Final Re sult Performing Organization Address [facility] de Phone Number [facility] [address] [place] [address] * (ABNORMAL) CBC and Differential (12/22/2024 3:00 AM EDT) Only the most recent of3 resultswithin the time period is included. DIFFERENTIAL MANUAL, 2 Not Indicated [facility] White Blood Cells 7.8 4.2 - 9.1 K/uL [facility] RBC 2.97(L) 4.63 - 6.08 M/uL [facility] Hgb 9.4(L) 13.7 - 17.5 g/dL [facility] Hemoglobin x 3 28.2(L) 41.1 - 52.5 g/dL [facility] Hematocrit 29.8(L) 40.1 - 51.0 % [facility] MCV 100.3(H) 79.0 - 92.2 fL [facility] MCH 31.6 25.7 - 32.2 pg [facility] MCHC 31.5(L) 32.3 - 36.5 g/dL [facility] RDW 14.1 11.6 - 14.4 % [facility] Platelets 253 163 - 337 K/uL [facility] MPV 12.5 9.1 - 13.0 fL [facility] Neutrophils Relative 65.5 34.0 - 67.9 % [facility] Lymphocytes Relative 20.1(L) 21.8 - 53.1 % [facility] Monocytes 10.2 5.3 - 12.2 % [facility] Eosinophils Relative 2.9 0.8 - 7.0 % [facility] Basophils Relative 1.0 0.2 - 1.2 % [facility] Immature Granulocytes 0.3 0.0 - 1.0 % [facility] 12/22/2024 3:00 AM EDT 12/23/2024 2:06 PM EDT Sascha Magallon MD LAB BLOOD ORDERABLES Final Re sult Performing Organization Address [facility] Co de Phone Number [facility] [address] [place] [address] * (ABNORMAL) ALT (12/22/2024 3:00 AM EDT) Only the most recent of3 resultswithin the time period is included. ALT (SGPT) 9(L) 10 - 49 U/L [facility] 12/22/2024 3:00 AM EDT 12/23/2024 1:41 PM EDT Sascha Magallon MD LAB BLOOD ORDERABLES Final Re sult Performing Organization Address [facility] Co de Phone Number [facility] [address] [place] [address] * AST (12/22/2024 3:00 AM EDT) Only the most recent of3 resultswithin the time period is included. AST (SGOT) 13 <34 U/L [facility] 12/22/2024 3:00 AM EDT 12/23/2024 1:41 PM EDT Sascha Magallon MD LAB BLOOD ORDERABLES Final Re sult Performing Organization Address [facility] Co de Phone Number [facility] [address] [place] [address] * Protein, total (12/22/2024 3:00 AM EDT) Only the most recent of3 resultswithin the time period is included. Total Protein 6.4 6.4 - 8.9 g/dL [facility] 12/22/2024 3:00 AM EDT 12/23/2024 1:41 PM EDT Sascha Magallon MD LAB BLOOD ORDERABLES Final Re sult Performing Organization Address [facility] de Phone Number [facility] [address] [place] [address] * (ABNORMAL) Alkaline phosphatase (12/22/2024 3:00 AM EDT) Only the most recent of3 resultswithin the time period is included. Alkaline Phosphatase 157(H) 46 - 116 U/L [facility] 12/22/2024 3:00 AM EDT 12/23/2024 1:41 PM EDT Sascha Magallon MD LAB BLOOD ORDERABLES Final Re sult Performing Organization Address [facility] de Phone Number [facility] [address] [place] [address] * PTH, Intact (12/22/2024 3:00 AM EDT) PTH, Intact 263 160 - 721 pg/mL [facility] Comment: Suggested (KDIGO) ESRD maintenance range is two to nine times the upper normal limit (80.1 pg/mL) for the laboratory. 12/22/2024 3:00 AM EDT 12/23/2024 1:41 PM EDT us Sascha Magallon MD LAB BLOOD ORDERABLES Final Re sult Performing Organization Address [facility] de Phone Number [facility] [address] [place] [address] * (ABNORMAL) Magnesium (12/22/2024 3:00 AM EDT) Only the most recent of3 resultswithin the time period is included. Magnesium 1.8(L) 1.9 - 2.7 mg/dL [facility] 12/22/2024 3:00 AM EDT 12/23/2024 1:41 PM EDT Sascha Magallon MD LAB BLOOD ORDERABLES Final Re sult Performing Organization Address [facility] de Phone Number [facility] [address] [place] [address] * Lactate dehydrogenase (12/22/2024 3:00 AM EDT) Only the most recent of3 resultswithin the time period is included. LDH 223 120 - 246 U/L [facility] 12/22/2024 3:00 AM EDT 12/23/2024 1:41 PM EDT Sascha Magallon MD LAB BLOOD ORDERABLES Final Re sult Performing Organization Address [facility] de Phone Number [facility] [address] [place] [address] * (ABNORMAL) Hemoglobin A1c (12/22/2024 3:00 AM EDT) Hemoglobin A1C 10.8(H) <5.7 % [facility] Comment: Methodology: Enzymatic Normal: <5.7% Prediabetes: 5.7-6.4% Diabetes: >6.4% Diabetic Glucose Control Evaluation: Therapeutic action suggested at >8.0% ADA recommends a glycemic goal of <7.0% 12/22/2024 3:00 AM EDT 12/23/2024 2:06 PM EDT Sascha Magallon MD LAB BLOOD ORDERABLES Final Re sult Performing Organization Address [facility] Co de Phone Number [facility] [address] [place] [address] * (ABNORMAL) Glucose, random (12/22/2024 3:00 AM EDT) Only the most recent of3 resultswithin the time period is included. Glucose 391(H) 70 - 99 mg/dL [facility] Comment: ADA guidelines outline the following fasting glucose ranges: Normal: <100 Prediabetes: 100-125 Diabetes: >125 12/22/2024 3:00 AM EDT 12/23/2024 1:41 PM EDT Sascha Magallon MD LAB BLOOD ORDERABLES Final Re sult Performing Organization Address [facility] de Phone Number [facility] [address] [place] [address] * (ABNORMAL) Ferritin (12/22/2024 3:00 AM EDT) Only the most recent of3 resultswithin the time period is included. Ferritin 898(H) 22 - 322 ng/mL [facility] 12/22/2024 3:00 AM EDT 12/23/2024 1:41 PM EDT Sascha Magallon MD LAB BLOOD ORDERABLES Final Re sult Performing Organization Address [facility] de Phone Number [facility] [address] [place] [address] * (ABNORMAL) Creatinine, serum (12/22/2024 3:00 AM EDT) Only the most recent of3 resultswithin the time period is included. Creatinine 2.98(H) 0.70 - 1.30 mg/dL [facility] 12/22/2024 3:00 AM EDT 12/23/2024 1:41 PM EDT us Sascha Magallon MD LAB BLOOD ORDERABLES Final Re sult Performing Organization Address [facility] Co de Phone Number [facility] [address] [place] [address] * (ABNORMAL) Bilirubin, total (12/22/2024 3:00 AM EDT) Only the most recent of3 resultswithin the time period is included. Total Bilirubin <0.2(L) 0.3 - 1.2 mg/dL [facility] 12/22/2024 3:00 AM EDT 12/23/2024 1:41 PM EDT us Sascha Magallon MD LAB BLOOD ORDERABLES Final Re sult Performing Organization Address [facility] de Phone Number [facility] [address] [place] [address] * (ABNORMAL) Lipid panel (12/22/2024 3:00 AM EDT) Cholesterol 211(H) mg/dL [facility] Comment: Optimal: <200 Borderline: 200-239 High Risk: >239 Triglycerides 185(H) mg/dL [facility] Comment: Optimal: <150 Borderline: 150-200 High Risk: >200 HDL 47(L) mg/dL [facility] Comment: Optimal: >59 Borderline: 40-59 High Risk: <40 LDL-Calc 127(H) mg/dL [facility] Comment: Optimal: <100 Borderline: 100-159 High Risk: >159 VLDL Cholesterol [place] 37(H) mg/dL [facility] Comment: Optimal: <30 Borderline: 30-40 High Risk: >40 Chol/HDL Ratio 4.5(H) [facility] Comment: Optimal: <3.3 High Risk: >6.2 12/22/2024 3:00 AM EDT 12/23/2024 1:41 PM EDT us Sascha Magallon MD LAB BLOOD ORDERABLES Final Re sult Performing Organization Address [facility] de Phone Number [facility] [address] [place] [address] * (ABNORMAL) Electrolyte panel (12/22/2024 3:00 AM EDT) Only the most recent of3 resultswithin the time period is included. Sodium 139 136 - 145 mEq/L [facility] Potassium 4.8 3.4 - 5.0 mEq/L [facility] Chloride 103 98 - 107 mEq/L [facility] Bicarbonate (CO2) 20(L) 21 - 31 mEq/L [facility] Anion Gap 16(H) 3 - 14 mEq/L [facility] 12/22/2024 3:00 AM EDT 12/23/2024 1:41 PM EDT Sascha Magallon MD LAB BLOOD ORDERABLES Final Re sult Performing Organization Address [facility] de Phone Number [facility] [address] [place] [address] * (ABNORMAL) Hemoglobin (11/03/2024 3:00 AM EDT) Hgb 11.5(L) 13.7 - 17.5 g/dL [facility] Hemoglobin x 3 34.5(L) 41.1 - 52.5 g/dL [facility] 11/03/2024 3:00 AM EDT 11/04/2024 12:34 PM EDT Sascha Magallon MD LAB BLOOD ORDERABLES Final Re sult Performing Organization Address [facility] de Phone Number [facility] [address] [place] [address] from Last 3 Months Insurance [facility] ([id number]) [facility] ([id number]) Care Teams Cost Reduction Engineer Relationship Specialty Start Date End Date Pavithra Worthy [address] [place] [address] PCP - General 08/13/22
--- OUTSIDE RECORDS SUMMARY | 2025-01-27 15:58 | XMS_ITS | Encounter Summary ---
Author Organization [facility] Address [address] [place] [id number] Phone Care Team Providers Care Medical Oncology Physician Name Role Phone Marizafausto Pavithra Primary Care Provider [phone] Encounter Details Date Type Department Care Team ([facility] Contact Info) Description 01/07/2025 Treatment [facility] [address] [place] [phone] Nancy Quezada MD [address] [phone] End stage renal disease; Dependence on renal dialysis Social History Tobacco Use Types Packs/Day Years Used Date Smoking Tobacco: Never Assessed Sex and Gender Information Value Date Recorded Sex Assigned at Not on file Legal Sex Male 11:26 AM EDT Gender Identity Not on file Sexual Orientation Not on file documented as of this encounter Miscellaneous Notes * Dialysis Note - Nancy Quezada MD - 01/07/2025 12:00 AM EDT Patient: Albert Wynn : 1995 Note Type: Dialysis Rounds-Comp Service Date: 01/07/2025 This patient was personally seen [id number] for a complete visit as part of routine monthly dialysis care for end stage renal disease. Attending Parachute Crown Sewer: NANCY QUEZADA Dialysis Location: [facility] Schedule: Shift: 1 OVERVIEW Patient is not stable. COMMENTS: 10/22/24 small superficial wound on forearm HOME MEDICATIONS Medications reviewed. Current [facility] Outpatient Medications acetaminophen (TYLENOL) tablet Take 325 mg by mouth every 6 (six) hours if needed Start Date: 12/11/2023 amiodarone (PACERONE) tablet Take 200 mg by mouth 1 (one) time each day Start Date: 12/17/2023 atorvastatin (LIPITOR) tablet Start Date: 12/17/2023 carvedilol (COREG) tablet Take 25 mg by mouth in the morning and 25 mg in the evening. Start Date: 04/17/2022 ELIQUIS 5 MG PO TABS Take 5 mg by mouth in the morning and 5 mg in the evening. Start Date: 12/17/2023 famotidine (PEPCID) tablet Take 20 mg by mouth 1 (one) time each day Start Date: 11/03/2023 hydrALAZINE (APRESOLINE) tablet Start Date: 07/02/2022 INSULIN LISPRO 100 UNIT/ML IJ SOLN Inject as directed As directed ~ sliding scale Start Date: LANTUS SOLOSTAR 100 UNIT/ML SC SOPN Start Date: 06/12/2022 levothyroxine (SYNTHROID, LEVOTHROID) tablet Take 100 mcg by mouth 1 (one) time each day Start Date: LOKELMA 5 G PO PACK Take 1 Package by mouth Every fri, fri, and friday Start Date: melatonin tablet Start Date: 07/05/2022 metOLazone 5 MG tablet Take 1 tablet (5 mg total) by mouth 4 (four) times a week: TuJp pérez Sat, Sun Take on non-dialysis days Start Date: 08/03/2024 mirtazapine (REMERON) tablet Start Date: 07/11/2022 pantoprazole (PROTONIX) EC tablet Take 40 mg by mouth 1 (one) time each day Start Date: 06/25/2022 torsemide (DEMADEX) tablet Take 40 mg by mouth 1 (one) time each day Start Date: 04/17/2022 VITAMIN D-3 25 MCG (1000 UT) PO CAPS Take by mouth Start Date: warfarin (COUMADIN) tablet TAKE 1 TO 2 TABLETS BY MOUTH DAILY DIRECTED BY THE COUMADIN CLINIC Start Date: 04/17/2022 Current [facility] Allergies Allergen: Not on File BP AND FLUID ASSESSMENT High weight gain. ADEQUACY ASSESSMENT Kt/V, Natural Log 1.36 (12/22/24) 1.47 (12/01/24) 1.05 (11/24/24) UREA REDUCTION RATIO (%) 70 (12/22/24) 71 (12/01/24) 60 (11/24/24) BUN 30 (12/22/24) 35 (12/01/24) 40 (11/24/24) BUN Post Dialysis 9 (12/22/24) 10 (12/01/24) 16 (11/24/24) Creatinine 2.98 (12/22/24) 4.37 (11/24/24) 3.62 (10/27/24) Bicarbonate (CO2) 20 (12/22/24) 22 (11/24/24) 21 (10/27/24) Sodium 139 (12/22/24) 135 (11/24/24) 141 (10/27/24) Target not met - prescription change discussed with staff and patient. ANEMIA ASSESSMENT Hgb 10.0 (01/07/25) 9.4 (12/22/24) 8.4 (12/08/24) Hemoglobin 8.3 (02/03/24) 9.7 (01/31/24) Iron Saturation (TSat) 26 (12/22/24) 37 (11/24/24) 18 (10/27/24) Ferritin 898 (12/22/24) 1,405 (11/24/24) 1,374 (10/27/24) Iron 44 (12/22/24) 65 (11/24/24) 42 (10/27/24) TIBC 172 (12/22/24) 176 (11/24/24) 234 (10/27/24) MCV 100.3 (12/22/24) 105.2 (11/24/24) 105.8 (10/27/24) Platelets 253 (12/22/24) 180 (11/24/24) 262 (10/27/24) Anemia targets met. BMM ASSESSMENT Calcium, Adjusted Total 8.6 12/22/24 8.0 11/24/24 8.2 10/27/24 Calcium 8.5 12/22/24 7.8 11/24/24 8.2 10/27/24 Phosphorus, Serum 3.8 12/22/24 3.6 11/24/24 3.9 10/27/24 Ca*PO4 32.3 12/22/24 28.1 11/24/24 32.0 10/27/24 PTH, Intact 263 12/22/24 286 09/29/24 248 06/23/24 Magnesium 1.8 12/22/24 1.9 11/24/24 1.7 10/27/24 Alkaline Phosphatase 157 12/22/24 142 11/24/24 158 10/27/24 Aluminum 2 03/31/24 1 03/08/24 NUTRITION ASSESSMENT Albumin 3.9 12/22/24 3.8 11/24/24 4.0 10/27/24 Potassium 4.8 12/22/24 5.2 11/24/24 4.4 10/27/24 Glucose 391 12/22/24 911 11/24/24 254 10/27/24 Hemoglobin A1C 10.8 12/22/24 8.9 09/29/24 10.9 06/23/24 ADDITIONAL LABS White Blood Cells 7.8 (12/22/24) 5.8 (11/24/24) 6.2 (10/27/24) WBC 3.5 (02/03/24) 5.4 (01/31/24) Cholesterol 211 (12/22/24) 173 (09/29/24) 206 (06/23/24) HDL 47 (12/22/24) 70 (09/29/24) 40 (06/23/24) LDL-Calc 127 (12/22/24) 86 (09/29/24) 119 (06/23/24) Triglycerides 185 (12/22/24) 83 (09/29/24) 233 (06/23/24) Hep B Surface Antibody ?1,000 (03/31/24) ?1,000 (03/08/24) Uric Acid 5.7 (03/31/24) 6.1 (03/03/24) 4.9 (02/12/24) Chol/HDL Ratio 4.5 (12/22/24) 2.5 (09/29/24) 5.2 (06/23/24) ALT (SGPT) 9 (12/22/24) 12 (11/24/24) 16 (10/27/24) AST (SGOT) 13 (12/22/24) 17 (11/24/24) 23 (10/27/24) ADDITIONAL COMMENT COMMENTS: 03/01/24 stablec 03/16/24 stable 04/05/24 stable 04/21/24 stable 11/17/24 same issues 05/05/24 doing ok 05/14/24 same issues 05/17/24 stable 05/24/24 stable 05/31/24 stable 06/09/24 doing ok 06/18/24 stable 06/23/24 doing ok 07/26/24 excess fluid intake cont a prob 08/02/24 needs xtra fluid remived, zaroxlyn added as well 08/18/24 cont w non compliance w hd times 09/08/24 recurrent hosp for DKA and dCHF 09/13/24 doing ok 09/20/24 same issues 10/06/24 cont to pull fluid as tolerated to get to DWT 10/18/24 same issues 01/07/25 poorly compliant, many hosp for decomposition and misses manyPTs Signed by: NANCY QUEZADA MD on 01/21/2025 at 11:58:07 PM Transcribed by: NANCY QUEZADA MD on 01/21/2025 at 11:58:07 PM documented in this encounter Plan of Treatment Not on file documented as of this encounter Visit Diagnoses Diagnosis End stage renal disease Dependence on renal dialysis documented in this encounter Care Teams Medical Oncology Physician Relationship Specialty Start Date End Date MarizaLima lamberte [address] [place] [id number] PCP - General 08/13/22 documented as of this encounter
== END 2025-01-27 14:05 | disposition home or self-care (01) ==
LOC: HO.ENCR 13:03
PROVIDERS: PCP Internal Medicine; Visit Provider Student in an Organized Health Care Education/Training Program
DX: E10.65 Type 1 diabetes mellitus with hyperglycemia (principal)
CPT/HCPCS: 99205

== ENCOUNTER → 2025-01-27 13:03 | Outpatient (BNVA) | payer OTHER, SELFPAY | PROVIDERS: PCP Internal Medicine; Visit Provider Student in an Organized Health Care Education/Training Program | DX: E10.65 Type 1 diabetes mellitus with hyperglycemia (principal) | CPT/HCPCS: 82947; 99202 ==

== ENCOUNTER 2025-02-02 16:34 | Outpatient (REF) | payer OTHER, SELFPAY ==
--- OUTSIDE RECORDS SUMMARY | 2025-01-30 02:49 | XMS_ITS | Continuity of Care Document ---
Author Organization [facility] ter Address [address] [place] [id number]- Care Team Providers Care Extension Service Specialist In Charge Name Role Phone Ela Webber MD Primary Care Physician Encounter [facility] Date(s): 01/29/25 - 01/30/[address] [address]- Encounter Diagnosis Hyperkalemia(Final) - 01/29/25 Fluid overload(Final) - 01/29/25 Discharge Disposition: A-D/C Home Attending Physician: Jose Francisco Gentile MD Admitting Physician: Jose Francisco Gentile MD Referring Physician: Not on Staff, Referring MD Encounter Type: Disch ES Allergies, Adverse Reactions, Alerts No Known Allergies Immunizations Given and Recorded Vaccine Date Status Refusal Reason influenza virus vaccine, inactivated 12/16/24 Give n influenza virus vaccine, inactivated 11/29/22 Juan Luis rded influenza virus vaccine, inactivated 1 04/17/21 Gi torsten influenza virus vaccine, inactivated 06/10/16 Juan Luis rded influenza virus vaccine, inactivated 04/12/15 Juan Luis rded influenza virus vaccine, inactivated 03/28/10 Juan Luis rded influenza virus vaccine, inactivated 06/03/05 Juan Luis rded influenza virus vaccine, inactivated 02/10/04 Juan Luis rded [id number] bivalent booster vax 03/27/22 Recorded SARS-CoV-2 (COVID-19) mRNA-1273 vaccine 04/17/21 G iven SARS-CoV-2 (COVID-19) mRNA-1273 vaccine 2 01/30/21 Given tetanus-diphtheria toxoids (Td) 02/22/17 Recorded pneumococcal 23-valent vaccine 08/30/16 Given Hepatitis A Adult Vaccine 10/06/14 Recorded Hepatitis A Adult Vaccine 08/11/13 Recorded pneumococcal 13-valent vaccine 10/05/14 Recorded Varicella Virus Vaccine 05/21/12 Recorded Varicella Virus Vaccine 08/11/98 Recorded Meningococcal Conjugate Vaccine 05/21/12 Recorded Meningococcal Conjugate Vaccine 12/01/06 Recorded tetanus/diphtheria/pertussis, acel(Tdap) 12/01/06 Recorded Poliovirus Vaccine, Inactivated 10/21/97 Recorded Poliovirus Vaccine, Inactivated 93 Recorded Poliovirus Vaccine, Inactivated 93 Recorded Poliovirus Vaccine, Inactivated 93 Recorded Measles/Mumps/Rubella Virus Vaccine 10/21/97 Recor ded Measles/Mumps/Rubella Virus Vaccine 08/07/94 Recor ded diphtheria/tetanus/pertussis, acel(DTaP) 10/21/97 Recorded diphtheria/tetanus/pertussis, acel(DTaP) 05/07/95 Recorded diphtheria/tetanus/pertussis, acel(DTaP) 93 Recorded diphtheria/tetanus/pertussis, acel(DTaP) 93 Recorded diphtheria/tetanus/pertussis, acel(DTaP) 93 Recorded Haemophilus B conjugate (HbOC) vaccine 08/07/94 Re corded Haemophilus B conjugate (HbOC) vaccine 93 Re corded Haemophilus B conjugate (HbOC) vaccine 93 Re corded Haemophilus B conjugate (HbOC) vaccine 93 Re corded hepatitis B pediatric vaccine 02/07/94 Recorded hepatitis B pediatric vaccine 93 Recorded 1Early/Late Reason: Early/Late Reason: Physician Order to Hold 2Result Comment: verbal consent obtained for vaccine administration Medications atorvastatin 80 mg oral tablet See Instructions, TAKE 1 TABLET BY MOUTH DAILY AT BEDTIME, # 30 tablet, 11 Refills, Maintenance, 03/09/24 9:53:00 AM EST, [facility], 160, cm, 03/05/24 10:42:00 EST, Height, 60, kg, 03/03/24 21:26:00 EST, Dry Weight Start Date: 03/09/24 Status: Ordered Medication Dispense Status: Completed Quantity: 30.0 Unit: tablet Total Allowed Fills: 1 Fills Dispensed: 0 Benadryl 25 mg oral tablet 1 tablet = 25 mg, By Mouth, Daily, 0 Refills, Maintenance, 12/05/24 4:27:00 AM EDT, Partial fill upon patient request if the prescription is for a schedule II opioid drug. Start Date: 12/05/24 Status: Ordered Medication Dispense Status: Completed Total Allowed Fills: 1 Fills Dispensed: 0 carvedilol 25 mg oral tablet See Instructions, TAKE 1 TABLET BY MOUTH TWICE DAILY, # 60 tablet, Refills 11, Maintenance, 03/09/24 9:53:00 AM EST, Instructions Replace Required Details, Route to Pharmacy Electronically, [facility], 160, cm, 03/05/24 10:42:00 EST, Height, 60, kg, 03/03/24 21:26:00 EST, Dry Weight Start Date: 03/09/24 Status: Ordered Medication Dispense Status: Completed Quantity: 60.0 Unit: tablet Total Allowed Fills: 1 Fills Dispensed: 0 duloxetine 60 mg oral enteric coated capsule See Instructions, 1 capsule By Mouth Daily AFTER dIALYSIS, 0 Refills, Maintenance, 12/05/24 4:26:00 AM EDT, Partial fill upon patient request if the prescription is for a schedule II opioid drug. Start Date: 12/05/24 Status: Ordered Medication Dispense Status: Completed Total Allowed Fills: 1 Fills Dispensed: 0 Eliquis 5 mg oral tablet See Instructions, TAKE 1 TABLET BY MOUTH 2 TIMES A DAY, # 60 tablet, 11 Refills, Maintenance, 03/09/24 9:53:00 AM EST, [facility], 160, cm, 03/05/24 10:42:00 EST, Height, 60, kg, 03/03/24 21:26:00 EST, Dry Weight Start Date: 03/09/24 Status: Ordered Medication Dispense Status: Completed Quantity: 60.0 Unit: tablet Total Allowed Fills: 1 Fills Dispensed: 0 gabapentin 100 mg oral capsule See Instructions, 1 capsule By Mouth 3 times a day, Refills 0, Maintenance, 07/13/24 5:54:00 AM EDT,Instructions Replace Required Details, Partial fill upon patient request if the prescription is fora schedule II opioid drug. Start Date: 07/13/24 Status: Ordered Medication Dispense Status: Completed Total Allowed Fills: 1 Fills Dispensed: 0 insulin glargine 100 units/mL subcutaneous solution See Instructions, 12 units Subcutaneous Injection Daily, # 15 mL, 0 Refills, Maintenance, 04/08/24 9:04:00 AM EST, Injection, [facility], Partial fill upon patient request if the prescription is for a schedule II opioid drug., 160.02, cm, 04/08/24 8:34:00 EST, Height, 61.36, kg, 03/20/24 6:12:00 EST, Dry Weight Start Date: 04/08/24 Status: Ordered Medication Dispense Status: Completed Quantity: 15.0 Unit: mL Total Allowed Fills: 1 Fills Dispensed: 0 Insulin LISPRO Sliding Scale 2-10 units, Subcutaneous Infusion, 3 times a day before meals, Maintenance, 12/28/24 8:28:00 PM EDT Start Date: 12/28/24 Status: Ordered Medication Dispense Status: Completed Total Allowed Fills: 1 Fills Dispensed: 0 levothyroxine 0.1 mg oral tablet 1 tablet = 100 mcg, By Mouth, Daily, # 90 tablet, 0 Refills, Maintenance, 10/30/23 12:05:00 PM EDT, Tablet, Partial fill upon patient request if the prescription is for a schedule II opioid drug. Start Date: 10/30/23 Status: Ordered Medication Dispense Status: Completed Quantity: 90.0 Unit: tablet Total Allowed Fills: 1 Fills Dispensed: 0 magnesium oxide 400 mg oral tablet = 400 mg, By Mouth, 2 times a day, 0 Refills, Maintenance, 01/05/25 12:37:00 PM EDT, Tablet, Partial fill upon patient request if the prescription is for a schedule II opioid drug. Start Date: 01/05/25 Stop Date: 01/12/25 Status: Ordered Medication Dispense Status: Completed Total Allowed Fills: 1 Fills Dispensed: 0 melatonin 3 mg oral tablet 2 tablet = 6 mg, By Mouth, Daily at bedtime, 0 Refills, Maintenance, 04/23/23 7:18:00 AM EST, Tablet, Partial fill upon patient request if the prescription is for a schedule II opioid drug. Start Date: 04/23/23 Status: Ordered Medication Dispense Status: Completed Total Allowed Fills: 1 Fills Dispensed: 0 metolazone 5 mg oral tablet 5 mg, 1, tablet, By Mouth, Daily, # 30 tablet, Refills 0, Maintenance, 12/05/24 4:26:00 AM EDT, Partial fill upon patient request if the prescription is for a schedule II opioid drug. Start Date: 12/05/24 Status: Ordered Medication Dispense Status: Completed Quantity: 30.0 Unit: tablet Total Allowed Fills: 1 Fills Dispensed: 0 mirtazapine 30 mg oral tablet 1 tablet = 30 mg, By Mouth, Daily at bedtime, # 30 tablet, 0 Refills, Maintenance, 01/07/24 12:07:00 AM EDT, Tablet, Partial fill upon patient request if the prescription is for a schedule II opioid drug. Start Date: 01/07/24 Status: Ordered Medication Dispense Status: Completed Quantity: 30.0 Unit: tablet Total Allowed Fills: 1 Fills Dispensed: 0 Pacerone 200 mg oral tablet 1 tablet = 200 mg, By Mouth, Daily, Maintenance, 07/01/23 11:03:00 AM EDT, Partial fill upon patient request if the prescription is for a schedule II opioid drug. Start Date: 07/01/23 Status: Ordered Medication Dispense Status: Completed Total Allowed Fills: 1 Fills Dispensed: 0 pantoprazole 40 mg oral delayed release tablet = 40 mg, By Mouth, Daily, # 30 tablet, 0 Refills, Maintenance, 06/25/22 1:22:00 PM EDT, [facility], 162, cm, 06/25/22 7:39:00 EDT, Height, 69, kg, 06/22/22 20:30:00 EDT, Dry Weight Start Date: 06/25/22 Status: Ordered Medication Dispense Status: Completed Quantity: 30.0 Unit: tablet Total Allowed Fills: 1 Fills Dispensed: 0 sacubitril-valsartan 24 mg-26 mg oral tablet See Instructions, TAKE ONE TABLET BY MOUTH TWO TIMES A DAY, # 60 tablet, 1 Refills, Maintenance, 01/21/25 2:34:00 PM EDT, [facility], 30, TAKE ONE TABLET BY MOUTH TWO TIMES A DAY, 160, cm, 01/21/25 6:16:00 EDT, Height, 59.9, kg, 01/21/25 6:18:00 EDT, Dry Weight Start Date: 01/21/25 Status: Ordered Medication Dispense Status: Completed Quantity: 60.0 Unit: tablet Total Allowed Fills: 1 Fills Dispensed: 0 torsemide 20 mg oral tablet See Instructions, TAKE 4 TABLETS BY MOUTH TWICE DAILY *TAKE DOSES BY APPORX 6 HOURS*, # 120 tablet, 11 Refills, Maintenance, 03/09/24 9:53:00 AM EST, [facility], 160, cm, 03/05/2410:42:00 EST, Height, 60, kg, 03/03/24 21:26:00 EST, Dry Weight Start Date: 03/09/24 Status: Ordered Medication Dispense Status: Completed Quantity: 120.0 Unit: tablet Total Allowed Fills: 1 Fills Dispensed: 0 Vashe Topical solution Vashe Topical solution, See Instructions, # 1 each, Refills 0, Tot. Refills 0, Maintenance, please clean the wound every 72hours, 11/27/24 11:00:00 AM EDT, Supply, 160, cm, 11/27/24 9:41:00 EDT, Height, 64, kg, 11/24/24 21:58:00 EDT, Dry Weight Start Date: 11/27/24 Status: Ordered Medication Dispense Status: Completed Quantity: 1.0 Unit: each Total Allowed Fills: 1 Fills Dispensed: 0 Problem List Condition Confirmation Course Effective Dates Status H ealth Status Informant MSSA bacteremia Confirmed Active Elevated troponin Confirmed Active Nonischemic cardiomyopathy Confirmed Active Non-compaction cardiomyopathy Confirmed Active Chronic anemia Confirmed Active Chronic pain syndrome Confirmed Active COVID-19 1 Confirmed 04/15/[address] Confirmed Active Volume overload state of heart Confirmed Active Depression Confirmed Active ESRD on dialysis Confirmed Active Acid reflux Confirmed Active CHASIDY (generalized anxiety disorder) Confirmed Active Glaucoma Associated with Other Lens Disorders Confirmed 06/13/10 Active Heart failure with reduced ejection fraction Confirmed Active History of cardiac arrest Confirmed Active History of stroke Confirmed Active Hyperkalemia Confirmed Active Hyperlipidemia Confirmed Active Hypertension Confirmed Active Hypothyroid Confirmed Active Insomnia Confirmed Active Moderate tricuspid regurgitation Confirmed Active LV (left ventricular) mural thrombus Confirmed Active Polysubstance abuse Confirmed Active Pulmonary hypertension due to left heart disease Confirmed Active Right heart failure Confirmed Active SVT (supraventricular tachycardia) Confirmed Active TACO (transfusion associated circulatory overload) 2 Confirmed 05/09/23 Active 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 The use of slow infusion rates, the administration of phan-transfusion diuretics where not clinically contraindicated, and/or the transfusion of split units of PRBCs should be considered in any future hemotherapy interventions.Consult Transfusion Medicine Services if any questions. Vital Signs Most recent to oldest [Reference Range]: 1 2 3 Oxygen Saturation [94-100 %] 96 % (01/30/25 1:55 AM) 96 % (01/30/25 1:30 AM) 95 % (01/30/25 1:00 AM) Pulse Rate [55-90 bpm] 89 bpm (01/30/25 1:55 AM) 87 bpm (01/30/25 1:30 AM) 87 bpm (01/30/25 1:00 AM) Blood Pressure [90-138/55-84 mm Hg] 147/92mm Hg *H* (01/30/25 1:55 AM) 151/98mm Hg *H* (01/30/25 1:30 AM) 163/104mm Hg *H* (01/30/25 1:00 AM) Respiratory Rate [16-30 br/min] 21 br/min (01/30/25 1:55 AM) 18 br/min (01/30/25 1:30 AM) 18 br/min (01/30/25 1:00 AM) Temperature [96.8-100.4 DegF] 97.6 DegF (01/30/25 1:55 AM) 97.3 DegF (01/29/25 11:53 PM) 97.7 DegF (01/29/25 11:02 PM) Liters per Minute 2 L/min (01/29/25 6:09 PM) Mode of Delivery (Oxygen) Room air (01/30/25 1:55 AM) Room air (01/30/25 1:30 AM) Room air (01/30/25 1:00 AM) Blood pressure sites Leg, left (01/29/25 11:53 PM) Arm, right (01/29/25 11:02 PM) Temperature Route Temporal (01/30/25 1:55 AM) Temporal (01/29/25 11:53 PM) Oral (01/29/25 11:02 PM) Social History Social History Type Response Smoking Status Never (less than 100 in lifetime) entered on: 10/21/22 Sex Sex Representation Male (finding) Status N/A Consult note * Earlene Jessica MD: PERFORM, SIGN, VERIFY Event Display: Consult Authored Date: [id number] Patient: AVANI SOLOMON Age: 29 years Sex: Male : 1995 Associated Diagnoses: None Author: Earlene Jessica MD Interval History ESRD Missed HD Potassium 6.7 plan: FOR 2 hour HD tonight for hyperkalemia EKG study * Event Display: ECG 12-Lead Authored Date: Please click on pdf link to open report * Event Display: ECG 12-Lead Authored Date: Ventricular Rate: 99 BPM Atrial Rate: 99 BPM P-R Interval: 176 ms QRS Duration: 82 ms Q-T Interval: 398 ms QTC Calculation(Bazett): 510 ms P Sophia: 48 degrees R Sophia: -16 degrees T Sophia: 73 degrees Normal sinus rhythm Possible Left atrial enlargement Nonspecific T wave abnormality Prolonged QT Abnormal ECG When compared with ECG of 20-Jan-2025 16:08, Nonspecific T wave abnormality has replaced inverted T waves in Lateral leads Confirmed by JULIETA SWAN MD ([id number]) on 01/30/2025 2:52:38 PM [place]: [facility] * Socorro Yancey RN: PERFORM, MODIFY, MODIFY, SIGN, VERIFY Event Display: Progress Note Hospital Authored Date: [id number] Patient: AVANI SOLOMON Age: 29 years Sex: Male : 1995 Associated Diagnoses: None Author: Socorro Yancey RN Findings Narrative/Incidental HD REPORT/ SBAR Unit aware patient is returning to unit : Y Patient from ED/Returned to ED Pod A 6b Verbal necessary per protocol: Y 2 hour emergent hemodialysis. 1 K bath __K blood level 6.7 Access - RUE AVG loop. Patent. Site assessment - No signs of infection. Hemostasis achieved within expected time frame - Y 3.3 liters pulled - 5.2 % blood volume change If the goal is not reached why? Goal increased to max UFR. Y - Meds given see MAR for documentation Benadryl IV HD documented in flowsheets . Electronically Signed on 01/30/25 01:54 AM Socorro Yancey RN Patient Care team information Care Team Personnel Name: Arturo Tesfaye Position: [facility] Associate Professional Member Role: Lifetime Consulting Provider Address: [address] [place] [address] [facility] [address] Telecom: Name: Yoselin Price RN Position: [facility] RN Member Role: Primary Care Nurse Name: Dayna Hi RN Position: S RN Member Role: Primary Care Nurse Name: Bria Hi RN Position: S RN Member Role: Primary Care Nurse Name: Emily Carreon RN Position: [facility] RN Member Role: Primary Care Nurse Name: Miladys Alvarado Position: S RN Member Role: Primary Care Nurse Name: Sue Anderson RN Position: [facility] RN Member Role: Primary Care Nurse Name: Joann Erazo Position: [facility] Associate Professional Member Role: Lifetime Consulting Provider Address: [address] [place] [address] [facility] [address] Telecom: Name: Selene Melara RN Position: [facility] RN Member Role: Primary Care Nurse Name: Ariana Johnson RN Position: [facility] RN Member Role: Primary Care Nurse Name: Shirley Armstrong RN Position: [facility] RN Supv Member Role: Primary Care Nurse Name: Keily Pedroza RN Position: [facility] RN Member Role: Primary Care Nurse Name: Saida Gutierrez Position: [facility] Medical Student Member Role: Primary Care Nurse Name: Beryl Escalante RN Position: [facility] RN Member Role: Primary Care Nurse Name: Angeline Lawrence RN Position: [facility] RN Member Role: Primary Care Nurse Name: Ela Webber MD Position: S Outreach Member Role: PCP Address: [address] [place] [address] Telecom: Name: Alesha Feliz LPN Position: [facility] RN Member Role: Primary Care Nurse Name: Brittany Romero RN Position: [facility] RN Member Role: Primary Care Nurse Name: Analilia Rajput RN Position: [facility] SN RN Member Role: Primary Care Nurse Name: Socorro Yancey RN Position: [facility] RN Member Role: Primary Care Nurse Name: Jl Ferraro RN Position: [facility] RN Member Role: Primary Care Nurse Name: Kandy Soliz RN Position: [facility] RN Member Role: Primary Care Nurse Name: Sue Riley RN Position: [facility] RN Supv Member Role: Primary Care Nurse Name: Blaze Baker RN Position: [facility] RN Member Role: Primary Care Nurse Name: Gauri Rios RN Position: [facility] RN Member Role: Primary Care Nurse Name: Dary Frost RN Position: [facility] RN Member Role: Primary Care Nurse Name: Jose Francisco Phelps RN Position: [facility] RN Member Role: Primary Care Nurse Name: Emili Vogt Position: [facility] Associate Professional Member Role: Lifetime Consulting Provider Address: [address] [place] [address] [address] [facility] [address] Telecom: Name: Natasha Glasgow RN Position: [facility] RN Member Role: Primary Care Nurse Name: Sheryl Wallace RN Position: [facility] RN Member Role: Primary Care Nurse Name: Barbra Linn Position: [facility] RN Member Role: Primary Care Nurse Name: Magdi Arshad LPN Position: [facility] RN Member Role: Primary Care Nurse Name: Abhishek Smith RN Position: [facility] RN Member Role: Primary Care Nurse Name: Coy Read RN Position: [facility] RN Member Role: Primary Care Nurse Name: Gauri Jean Baptiste RN Position: [facility] RN Member Role: Primary Care Nurse Name: Reina Robins RN Position: [facility] RN Member Role: Primary Care Nurse Name: Gerardo Hall RN Position: [facility] RN Member Role: Primary Care Nurse Name: Shraddha Mcneil RN Position: [facility] RN Member Role: Primary Care Nurse Name: Antoni Mcneil RN Position: [facility] RN Member Role: Primary Care Nurse Name: Fuentes Marcial MD Position: [facility] Renal MD Member Role: Lifetime Consulting Physician Address: [address] [facility] [address] [facility] [address] Telecom: Name: Matt Desir RN Position: [facility] RN Member Role: Primary Care Nurse Name: Penny Brown RN Position: [facility] RN Member Role: Primary Care Nurse Name: Marla Garcia RN Position: [facility] RN Member Role: Primary Care Nurse Name: Praveena Rogel RN Position: [facility] RN Member Role: Primary Care Nurse Name: Corina Mendez RN Position: [facility] SN RN Member Role: Primary Care Nurse Name: Alfreda Moss RN Position: [facility] RN Member Role: Primary Care Nurse Name: Anne Canchola RN Position: [facility] RN Member Role: Primary Care Nurse Name: Kristan Pittman RN Position: [facility] Product Control And Logistics Analyst Member Role: Primary Care Nurse Name: Marla See RN Position: [facility] RN Member Role: Primary Care Nurse Name: Stephen Ocasio LPN Position: [facility] RN Member Role: Primary Care Nurse Name: Violeta Bermudez Position: [facility] RN Member Role: Primary Care Nurse Name: Kaitlin Vidal RN Position: [facility] RN Member Role: Primary Care Nurse Name: Magdi Rob RN Position: [facility] RN Member Role: Primary Care Nurse Name: Lillian Nelson RN Position: [facility] RN Member Role: Primary Care Nurse Name: Altagracia Aguiar RN Position: [facility] RN Rashid Member Role: Primary Care Nurse Name: Guerline Messer RN Position: [facility] RN Member Role: Primary Care Nurse Name: Ted Lloyd RN Position: [facility] RN Member Role: Primary Care Nurse Name: Arthur Carias RN Position: [facility] Rad RN Member Role: Primary Care Nurse Name: Teresa Noland RN Position: [facility] RN Member Role: Primary Care Nurse Name: Lance Ellis RN Position: [facility] RN Member Role: Primary Care Nurse Name: Jaycee Sharma RN Position: [facility] RN Member Role: Primary Care Nurse Name: Anne Alfaro RN Position: [facility] ED RN W/OE and Tasks Member Role: Primary Care Nurse Name: Bassem Croft MD Position: [facility] Renal MD Member Role: Lifetime Consulting Physician Address: [address] [facility] [place] [place] [address]- [place] Telecom: Name: Raysa Delacruz RN Position: [facility] RN Member Role: Primary Care Nurse Name: Janny Herndon RN Position: [facility] OB RN Member Role: Primary Care Nurse Name: Gauri Ham NP Position: [facility] Associate Professional Member Role: Primary Care Nurse Address: [address] [place] [address]- [place] Telecom: Name: Ariel Barragan RN Position: [facility] RN Member Role: Primary Care Nurse Name: Jyoti Wliey RN Position: [facility] RN Member Role: Primary Care Nurse Name: Bria Clements RN Position: [facility] RN Member Role: Primary Care Nurse Name: Cindy Lewis RN Position: [facility] RN Member Role: Primary Care Nurse Name: Whitley Whitmore RN Position: [facility] SN RN Member Role: Primary Care Nurse Name: Fritz Merritt RN Position: [facility] ED RN W/OE and Tasks Member Role: Primary Care Nurse Name: Selene Bender RN Position: [facility] RN Member Role: Primary Care Nurse Name: Elle Albarran RN Position: [facility] RN Member Role: Primary Care Nurse Name: Sapna Davidson RN Position: [facility] RN Member Role: Primary Care Nurse Name: Zandra Simpson RN Position: [facility] RN Member Role: Primary Care Nurse Name: Bria Fitch RN Position: [facility] RN Member Role: Primary Care Nurse Name: Ashly Camarillo RN Position: [facility] OB RN Member Role: Primary Care Nurse Name: Deborah Guillermo RN Position: [facility] RN Member Role: Primary Care Nurse Name: Sherif Avila RN Position: [facility] RN Member Role: Primary Care Nurse Name: Regina Guthrie RN Position: [facility] RN Member Role: Primary Care Nurse Name: Nai Dent RN Position: [facility] RN Member Role: Primary Care Nurse Name: Gerardo Moura III, RN Position: [facility] RN Member Role: Primary Care Nurse Name: Mireille Pace RNyxuz Position: [facility] RN Rashid Member Role: Primary Care Nurse Name: Denzel Hilliard RN Position: [facility] RN Member Role: Primary Care Nurse Name: Melissa Escobar RN Position: [facility] RN Member Role: Primary Care Nurse Name: Mariama Benavidez RN Position: [facility] RN Member Role: Primary Care Nurse Name: Shirley Grier RN Position: [facility] RN Member Role: Primary Care Nurse Name: Basim Cordero Position: [facility] RN Member Role: Primary Care Nurse Name: Jax Bonilla RN Position: [facility] RN Member Role: Primary Care Nurse Name: Alexis Hua RN Position: [facility] RN Member Role: Primary Care Nurse Name: Taina Smith RN Position: [facility] RN Member Role: Primary Care Nurse Name: Jered Cottrell RN Position: [facility] RN Member Role: Primary Care Nurse Name: Mirza Matos RN Position: [facility] RN Member Role: Primary Care Nurse Name: Regina Reyes LPN Position: [facility] RN Member Role: Primary Care Nurse Name: Sofia Alvarez LPN Position: [facility] RN Member Role: Primary Care Nurse Name: Mirtha Brown RN Position: [facility] RN Member Role: Primary Care Nurse Name: Sal Townsend RN Position: [facility] RN Member Role: Primary Care Nurse Name: Griselda Clark RN Position: [facility] RN Member Role: Primary Care Nurse Name: Vishnu Kenney MD Position: [facility] Outreach Member Role: Lifetime Consulting Physician Address: [address] [facility] [address] Telecom: Name: Fadi Wolfe MD Position: [facility] Renal MD Member Role: Lifetime Consulting Physician Address: [address] [facility] [place] [place] [address] Telecom: Name: Leslie Worley Position: [facility] Outreach Member Role: Lifetime Consulting Physician Name: Rosemary Sumner RN Position: [facility] RN Member Role: Primary Care Nurse Name: Sherif Vaughn RN Position: [facility] RN Member Role: Primary Care Nurse Name: Sissy Sarah RN Position: [facility] RN Member Role: Primary Care Nurse Name: Lalit Gutierrez RN Position: [facility] RN Member Role: Primary Care Nurse Name: Shirley Pedro RN Position: [facility] Onco RN Member Role: Primary Care Nurse Name: Katelyn Soni RN Position: [facility] SN RN Member Role: Primary Care Nurse Name: Rabia Lerma RN Position: [facility] RN Member Role: Primary Care Nurse Name: Hermilo Will RN Position: [facility] RN Member Role: Primary Care Nurse Name: Facundo Renee RN Position: [facility] RN Member Role: Primary Care Nurse Name: Rudy Fish RN Position: [facility] RN Member Role: Primary Care Nurse Name: Miki Castellanos RN Position: [facility] RN Member Role: Primary Care Nurse Name: Loretta Arredondo RN Position: [facility] RN Member Role: Primary Care Nurse Name: Sherin Talley RN Position: [facility] RN Member Role: Primary Care Nurse Name: Sascha Magallon MD Position: [facility] Renal MD Member Role: Lifetime Consulting Physician Address: [address] [place] [address] [address] [facility] [address] Telecom: Name: Yoli Lopez RN Position: [facility] RN Member Role: Primary Care Nurse Name: Modesta Luevano RN Position: [facility] RN Supv Member Role: Primary Care Nurse Name: Alka Tello RN Position: [facility] RN Member Role: Primary Care Nurse Name: Kristie Mackenzie RN Position: [facility] RN Member Role: Primary Care Nurse Name: Mouna Desai RN Position: [facility] RN Member Role: Primary Care Nurse Name: Joann Beebe RN Position: [facility] RN Member Role: Primary Care Nurse Name: Janny Camarillo RN Position: [facility] RN Member Role: Primary Care Nurse Name: Bibiana Major LPN Position: [facility] RN Member Role: Primary Care Nurse Name: Toni Torres RN Position: [facility] RN Member Role: Primary Care Nurse Name: Zuleyma Lee RN Position: [facility] RN Member Role: Primary Care Nurse Name: Carolina Nayak RN Position: [facility] RN Member Role: Primary Care Nurse Name: Dary Matute LPN Position: [facility] RN Member Role: Primary Care Nurse Name: Sally White RN Position: [facility] RN Member Role: Primary Care Nurse Name: Milton Petersen RN Position: [facility] RN Member Role: Primary Care Nurse Name: Sri Portillo Position: [facility] RN Member Role: Primary Care Nurse Name: Bhavani Lr RN Position: [facility] RN Member Role: Primary Care Nurse Name: Kelli Chiang RN Position: [facility] RN Member Role: Primary Care Nurse Name: Va Latham RN Position: [facility] RN Member Role: Primary Care Nurse Name: Erasmo Stephenson RN Position: [facility] RN Member Role: Primary Care Nurse Name: Hamlet Ríos RN Position: [facility] RN Member Role: Primary Care Nurse Name: Sanjuanita Esquivel RN Position: [facility] RN Member Role: Primary Care Nurse Name: Som Franco RN Position: [facility] RN Member Role: Primary Care Nurse Name: Kyung Franco RN Position: [facility] RN Member Role: Primary Care Nurse Name: Sandy Castro RN Position: [facility] RN Member Role: Primary Care Nurse Care Team Related Persons Name: JUANITO MIGUEL Name: LUX ESCALANTE Insurance Providers Guarantor name: [employer] Health Plan Information #: 1 Payer: [facility] Payer Identifier: [employer] Member Number: [id number] Group Number: [id number] Subscriber Identifier: [id number] Relationship to Subscriber: self Coverage Type: Medicare Managed Care (Includes Medicare Advantage Plans) Coverage Verification Date: NA Telecom: Address:
--- OUTSIDE RECORDS SUMMARY | 2025-01-30 23:59 | XMS_ITS | Continuity of Care Document ---
Author Organization [facility] Address [address] [place] [id number]- Care Team Providers Care System Designer Name Role Phone Lawanda ADHIKARI, Ela Ignacio Primary Care Physician [place] [facility] [place]): [place]/25 [facility] [address] [place] [id number]- Attending Physician: Juni Crespo Admitting Physician: Juni Crespo Referring Physician: AdmtrJuni Encounter Type: Triage Allergies, Adverse Reactions, Alerts No Known Allergies [...] virus vaccine, inactivated 02/10/04 Juan Luis rded [id number] bivalent booster vax 03/27/22 Recorded SARS-CoV-2 (COVID-19) [...] 11 Refills, Maintenance, 03/09/24 9:53:00 AM EST, [facility], 160, cm, 03/05/24 10:42:00 EST, Height, [...] Replace Required Details, Route to Pharmacy Electronically, [facility], 160, cm, 03/05/24 10:42:00 EST, Height, [...] 11 Refills, Maintenance, 03/09/24 9:53:00 AM EST, [facility], 160, cm, 03/05/24 10:42:00 EST, Height, [...] Refills, Maintenance, 04/08/24 9:04:00 AM EST, Injection, [facility], Partial fill upon patient request if [...] 1 Refills, Maintenance, 01/21/25 2:34:00 PM EDT, [facility], 30, TAKE ONE TABLET [...] 11 Refills, Maintenance, 03/09/24 9:53:00 AM EST, [facility], 160, cm, 03/05/2410:42:00 EST, Height, 60, kg, [...] interventions.Consult Transfusion Medicine Services if any questions. Social History Social History Type Response Smoking Status Never (less than 100 in lifetime) entered on: 10/21/22 Sex Sex Representation Male (finding) Patient Care team information Care Team Personnel Name: Arturo Tesfaye Position: [facility] Associate Professional Member Role: Lifetime Consulting Provider Address: [address] [place] [address] [facility] [address] Telecom: Name: Yoselin Price RN Position: [facility] RN Member Role: Primary Care Nurse Name: Dayna Hi RN Position: [facility] RN Member Role: Primary Care Nurse Name: Bria Hi RN Position: [facility] RN Member Role: Primary Care Nurse Name: Emily Carreon RN Position: [facility] RN Member Role: Primary Care Nurse Name: Miladys Alvarado Position: [facility] RN Member Role: Primary Care Nurse Name: Sue Anedrson RN Position: [facility] RN Member Role: Primary Care Nurse Name: Joann Erazo Position: [facility] Associate Professional Member Role: Lifetime Consulting Provider Address: [address] [place] [address] [facility] [address] Telecom: Name: Selene Melara RN Position: [facility] RN Member Role: Primary Care Nurse Name: Ariana Johnson RN Position: [facility] RN Member Role: Primary Care Nurse Name: Shirley Armstrong RN Position: [facility] RN Supv Member Role: Primary Care Nurse Name: Keily Pedroza RN Position: [facility] RN Member Role: Primary Care Nurse Name: Saida Gutierrez Position: [facility] Medical Student Member Role: Primary Care Nurse Name: Beryl Escalante RN Position: [facility] RN Member Role: Primary Care Nurse Name: Angeline Lawrence RN Position: [facility] RN Member Role: Primary Care Nurse Name: Ela Webber MD Position: [facility] Outreach Member Role: PCP Address: [address] [place] [address] Telecom: Name: Alesha Feliz LPN Position: [facility] RN Member Role: Primary Care Nurse Name: Brittany Romero RN Position: [facility] RN Member Role: Primary Care Nurse Name: Analilia Rajput RN Position: [facility] SN RN Member Role: Primary Care Nurse Name: Socorro Yancey RN Position: [facility] RN Member Role: Primary Care Nurse Name: Jl Ferraro RN Position: [facility] RN Member Role: Primary Care Nurse Name: Kandy Soliz RN Position: [facility] RN Member Role: Primary Care Nurse Name: Sue Riley RN Position: [facility] RN Supv Member Role: Primary Care Nurse Name: Blaze Baker RN Position: [facility] RN Member Role: Primary Care Nurse Name: Gauri Rios RN Position: [facility] RN Member Role: Primary Care Nurse Name: Dary Frost RN Position: [facility] RN Member Role: Primary Care Nurse Name: Jose Francisco Phelps RN Position: [facility] RN Member Role: Primary Care Nurse Name: Emili Vogt Position: [facility] Associate Professional Member Role: Lifetime Consulting Provider Address: [address] [place] [address] [address] [facility] [address] Telecom: Name: Natasha Glasgow RN Position: [facility] RN Member Role: Primary Care Nurse Name: Sheryl Wallace RN Position: [facility] RN Member Role: Primary Care Nurse Name: Barbra Linn Position: [facility] RN Member Role: Primary Care Nurse Name: Magdi Arshad LPN Position: [facility] RN Member Role: Primary Care Nurse Name: Abhishek Smith RN Position: [facility] RN Member Role: Primary Care Nurse Name: Coy Read RN Position: [facility] RN Member Role: Primary Care Nurse Name: Gauri Jean Baptiste RN Position: [facility] RN Member Role: Primary Care Nurse Name: Reina Robins RN Position: [facility] RN Member Role: Primary Care Nurse Name: Gerardo Hall RN Position: [facility] RN Member Role: Primary Care Nurse Name: Shraddha Mcneil RN Position: [facility] RN Member Role: Primary Care Nurse Name: Antoni Mcneil RN Position: [facility] RN Member Role: Primary Care Nurse Name: Fuentes Marcial MD Position: [facility] Renal MD Member Role: Lifetime Consulting Physician Address: [address] [facility] [address] [facility] [address] Telecom: Name: Matt Desir RN Position: [facility] RN Member Role: Primary Care Nurse Name: Penny Brown RN Position: [facility] RN Member Role: Primary Care Nurse Name: Marla Garcia RN Position: [facility] RN Member Role: Primary Care Nurse Name: Praveena Rogel RN Position: [facility] RN Member Role: Primary Care Nurse Name: Corina Mendez RN Position: [facility] SN RN Member Role: Primary Care Nurse Name: Alfreda Moss RN Position: [facility] RN Member Role: Primary Care Nurse Name: Anne Canchola RN Position: [facility] RN Member Role: Primary Care Nurse Name: Kristan Pittman RN Position: [facility] Mushroom Farmer Member Role: Primary Care Nurse Name: Marla See RN Position: [facility] RN Member Role: Primary Care Nurse Name: Stephen Ocasio LPN Position: [facility] RN Member Role: Primary Care Nurse Name: Violeta Bermudez Position: [facility] RN Member Role: Primary Care Nurse Name: Kaitlin Vidal RN Position: [facility] RN Member Role: Primary Care Nurse Name: Magdi Rob RN Position: [facility] RN Member Role: Primary Care Nurse Name: Lillian Nelson RN Position: [facility] RN Member Role: Primary Care Nurse Name: Altagracia Aguiar RN Position: [facility] RN Supchinyere Member Role: Primary Care Nurse Name: Guerline Messer RN Position: [facility] RN Member Role: Primary Care Nurse Name: Ted Lloyd RN Position: [facility] RN Member Role: Primary Care Nurse Name: Arthur Carias RN Position: [facility] Rad RN Member Role: Primary Care Nurse Name: Teresa Noland RN Position: [facility] RN Member Role: Primary Care Nurse Name: Lance Ellis RN Position: [facility] RN Member Role: Primary Care Nurse Name: Jaycee Sharma RN Position: [facility] RN Member Role: Primary Care Nurse Name: Anne Alfaro RN Position: [facility] ED RN W/OE and Tasks Member Role: Primary Care Nurse Name: Bassem Croft MD Position: [facility] Renal MD Member Role: Lifetime Consulting Physician Address: [address] [facility] [address] [facility] [place] [address]- [place] Telecom: Name: Raysa Delacruz RN Position: [facility] RN Member Role: Primary Care Nurse Name: Janny Herndon RN Position: [facility] OB RN Member Role: Primary Care Nurse Name: Gauri Ham NP Position: [facility] Associate Professional Member Role: Primary Care Nurse Address: [address] [place] [address]- [place] Telecom: Name: Ariel Barragan RN Position: [facility] RN Member Role: Primary Care Nurse Name: Jyoti Wiley RN Position: [facility] RN Member Role: Primary Care Nurse Name: Bria Clements RN Position: [facility] RN Member Role: Primary Care Nurse Name: Cindy Lewis RN Position: [facility] RN Member Role: Primary Care Nurse Name: Whitley Whitmore RN Position: [facility] SN RN Member Role: Primary Care Nurse Name: Fritz Merritt RN Position: [facility] ED RN W/OE and Tasks Member Role: Primary Care Nurse Name: Selene Bender RN Position: [facility] RN Member Role: Primary Care Nurse Name: Elle Albarran RN Position: [facility] RN Member Role: Primary Care Nurse Name: Sapna Davidson RN Position: [facility] RN Member Role: Primary Care Nurse Name: Zandra Simpson RN Position: [facility] RN Member Role: Primary Care Nurse Name: Bria Fitch RN Position: [facility] RN Member Role: Primary Care Nurse Name: Ashly Camarillo RN Position: [facility] OB RN Member Role: Primary Care Nurse Name: Deborah Guillermo RN Position: [facility] RN Member Role: Primary Care Nurse Name: Sherif Avila RN Position: [facility] RN Member Role: Primary Care Nurse Name: Regina Guthrie RN Position: [facility] RN Member Role: Primary Care Nurse Name: Nai Dent RN Position: [facility] RN Member Role: Primary Care Nurse Name: Gerardo Moura III, RN Position: [facility] RN Member Role: Primary Care Nurse Name: Francisco Pace RN Position: [facility] RN Rashid Member Role: Primary Care Nurse Name: Denzel Hilliard RN Position: [facility] RN Member Role: Primary Care Nurse Name: Melissa Escobar RN Position: [facility] RN Member Role: Primary Care Nurse Name: Mariama Benavidez RN Position: [facility] RN Member Role: Primary Care Nurse Name: Shirley Grier RN Position: [facility] RN Member Role: Primary Care Nurse Name: Basim Cordero Position: [facility] RN Member Role: Primary Care Nurse Name: Jax Bonilla RN Position: [facility] RN Member Role: Primary Care Nurse Name: Alexis Hua RN Position: [facility] RN Member Role: Primary Care Nurse Name: Taina Smith RN Position: [facility] RN Member Role: Primary Care Nurse Name: Jered Cottrell RN Position: [facility] RN Member Role: Primary Care Nurse Name: Mirza Matos RN Position: [facility] RN Member Role: Primary Care Nurse Name: Regina Reyes LPN Position: [facility] RN Member Role: Primary Care Nurse Name: Sofia Alvarez LPN Position: [facility] RN Member Role: Primary Care Nurse Name: Mirtha Brown RN Position: [facility] RN Member Role: Primary Care Nurse Name: Sal Townsend RN Position: [facility] RN Member Role: Primary Care Nurse Name: Griselda Clark RN Position: [facility] RN Member Role: Primary Care Nurse Name: Vishnu Kenney MD Position: [facility] Outreach Member Role: Lifetime Consulting Physician Address: [address] [facility] [address] Telecom: Name: Fadi Wolfe MD Position: [facility] Renal MD Member Role: Lifetime Consulting Physician Address: [address] [facility] the [address] Telecom: Name: Leslie Worley Position: [facility] Outreach Member Role: Lifetime Consulting Physician Name: Rosemary Sumner RN Position: [facility] RN Member Role: Primary Care Nurse Name: Sherif Vaughn RN Position: [facility] RN Member Role: Primary Care Nurse Name: Sissy Sarah RN Position: [facility] RN Member Role: Primary Care Nurse Name: Lalit Gutierrez RN Position: [facility] RN Member Role: Primary Care Nurse Name: Shirley Pedro RN Position: [facility] Onco RN Member Role: Primary Care Nurse Name: Katelyn Soni RN Position: [facility] SN RN Member Role: Primary Care Nurse Name: Rabia Lerma RN Position: [facility] RN Member Role: Primary Care Nurse Name: Hermilo Will RN Position: [facility] RN Member Role: Primary Care Nurse Name: Facundo Renee RN Position: [facility] RN Member Role: Primary Care Nurse Name: Rudy Fish RN Position: [facility] RN Member Role: Primary Care Nurse Name: Miki Castellanos RN Position: [facility] RN Member Role: Primary Care Nurse Name: Loretta Arredondo RN Position: [facility] RN Member Role: Primary Care Nurse Name: Sherin Talley RN Position: [facility] RN Member Role: Primary Care Nurse Name: Sascha Magallon MD Position: [facility] Renal MD Member Role: Lifetime Consulting Physician Address: [address] [place], [place] [id number] [facility] [address] Telecom: Name: Yoli Lopez RN Position: [facility] RN Member Role: Primary Care Nurse Name: Modesta Luevano RN Position: [facility] RN Supv Member Role: Primary Care Nurse Name: Alka Tello RN Position: [facility] RN Member Role: Primary Care Nurse Name: Kristie Mackenzie RN Position: [facility] RN Member Role: Primary Care Nurse Name: Mouna Desai RN Position: [facility] RN Member Role: Primary Care Nurse Name: Joann Beebe RN Position: [facility] RN Member Role: Primary Care Nurse Name: Janny Camarillo RN Position: [facility] RN Member Role: Primary Care Nurse Name: Bibiana Major LPN Position: [facility] RN Member Role: Primary Care Nurse Name: Toni Torres RN Position: [facility] RN Member Role: Primary Care Nurse Name: Zuleyma Lee RN Position: [facility] RN Member Role: Primary Care Nurse Name: Carolina Nayak RN Position: [facility] RN Member Role: Primary Care Nurse Name: Dary Matute LPN Position: [facility] RN Member Role: Primary Care Nurse Name: Sally White RN Position: [facility] RN Member Role: Primary Care Nurse Name: Milton Petersen RN Position: [facility] RN Member Role: Primary Care Nurse Name: Sri Portillo Position: [facility] RN Member Role: Primary Care Nurse Name: Bhavani Lr RN Position: [facility] RN Member Role: Primary Care Nurse Name: Kelli Chiang RN Position: [facility] RN Member Role: Primary Care Nurse Name: Va Latham RN Position: [facility] RN Member Role: Primary Care Nurse Name: Erasmo Stephenson RN Position: [facility] RN Member Role: Primary Care Nurse Name: Hamlet Ríos RN Position: [facility] RN Member Role: Primary Care Nurse Name: Sanjuanita Esquivel RN Position: [facility] RN Member Role: Primary Care Nurse Name: Som Franco RN Position: [facility] RN Member Role: Primary Care Nurse Name: Kyung Franco RN Position: [facility] RN Member Role: Primary Care Nurse Name: Sandy Castro RN Position: [facility] RN Member Role: Primary Care Nurse Care Team Related Persons Name: JUANITO MIGUEL Name: LUX ESCALANTE Insurance Providers Guarantor name: [employer] Health Plan Information #: [address] [facility] Payer Identifier: Member Number: [id number] Group Number: [id number] Subscriber Identifier: NA Relationship to Subscriber: self Coverage Type: Medicare Managed Care (Includes Medicare Advantage Plans) Coverage Verification Date: NA Telecom: Address:
[2025-02-02 17:56] LABS: Anion Gap 15 (12-20); Blood Urea Nitrogen 48 mg/dL (9-16); Calcium 8.3 mg/dL (8.4-10.2); Carbon Dioxide 26 mmol/L (22-29); Chloride 108 mmol/L (96-108); Cholesterol 176 mg/dL (<200); Estimated Glomerular Filt Rate 22; HDL Cholesterol 53 mg/dL (>40); Potassium 5.5 mmol/L (3.3-5.1); Sodium 143 mmol/L (135-145); Triglycerides 91 mg/dL (<150)
[2025-02-02 19:05] LABS: Reflex LDLD? No
--- OUTSIDE RECORDS SUMMARY | 2025-02-02 19:07 | XMS_ITS | Data Portability ---
Author Organization [facility] [employer] [facility] Address [address] [place] [phone] Care Team Providers Care Substance Abuse Specialist Name Role Phone HIM CCA OTHER Assessment Encounter Date Assessment Date Assessment LastModified by Organization Details LastModified Time 09/07/2024 09/07/2024 I provided real -time medical direction via phone for this encounter, and was available for additional phone based assistance as needed. I have reviewed and agree with the Assessment and Plan as documented by the Field Laborer. We discussed the diagnostic uncertainty of home [...] to call 911- verbalized understanding of instructions [email or web address] Not available 09/07/2024 11:53:05 Plan of Treatment Reminders Order Date Submit Date Provider Last Modified By Organization Details Last Modified Time Details Appointments None recorded. Lab glucose, fingerstick , blood 2024 025 [email or web address] 0 [facility], [address] [place] [address], [phone] 11:41:46 Referral None recorded. Procedures None recorded. Surgeries None recorded. Imaging None recorded. Medication Orders bacitracin 500 unit/gram topical ointment 2024 025 [email or web address] 0 Not available 11:22:39 bacitracin 500 unit/gram topical ointment 2024 025 [facility], [address] [place] [address], [phone], 11:27:45 Patient TargetsNo targets recorded. Patient Instructions Encounter Date Encounter Id Patient Instructions Last Modified By Organization Details Last Modified Time 09/07/2024 [id number] wound care* [email or web address] Not available 11:22:40 Reason for Referral None Reported. Results Created Date Observation Date Name Description Value Unit Range Abnormal Flag Note LastModifiedBy Organization Detail LastModifiedTime 09/08/1909/07/2024 gluco se, finge rstic k, blood Blood Glucose: mg/dl 133 Not Available [email or web address] [address] [facility], [place], [phone] 09/07/2024 11:41:25 Result Notes None recorded. Medical [...] /min 91 /min 98 % 98 % 41886.3 28 g 98.3 [degF] 150/88 mm[Hg] Not Available [facility] - production 5 11:13:39 Social History None recorded. Functional Status None recorded. Mental Status None recorded. Family History Nothing Reported. Medical History No medical history recorded. Past Encounters Encounter ID Performer Location Encounter Start Date Encounter Closed Date Diagnosis/Indication Diagnosis SNOMED-CT Code Diagnosis ICD10 Code Diagnosis IMO Codes Diagnosis Note [id number] Sue Sheppard MD [facility] ED Medical [facility] [address] [place] [address] 09/07/2024 11:11:19 09/07/2024 22:25:34 Open wound of lower limb [id number] S81.801A S81.802A [id number] In a diabetic with ESRDreview ed signs [...] Conroy Member ID Guarantor Name 09/07/2024 1 [facility] - DOS ON OR AFTER 2022 - DUAL ELIGIBLE - ASSISTED OPTIONS AND ONE CARE (MEDICARE REPLACEMENT/ADV ANTAGE - HMO) Albert Wynn [id number] Albert Alexanderarez Notes Date Note Type Note Provider Name and Address Organization Details Recorded Time 09/07/2024 text/html ROS as noted in the HPI HPI: Member's nurse from the [facility] palliative care Nehal Woodall APRN SPRINKLING SYSTEM INSTALLER-BC, ACCN reached out to [facility] Community Resource Consultant Sue Sheppard MD to inquire about visiting this member to initiate an intake for continuous care due to multiple ED visit and hospitalizations within the past year. This is response from the [facility] Community Resource Consultant. Thank you for thinking of our service and of something that is potentially beneficial for your patient.He sounds like a very sick, complex young patient. If he has [facility] insurance, Critical access hospital might be very helpful here. I would suggest asking his care team to put in an original visit request with Critical access hospital if the patient is willing to have us come to the house. This is the type of patient where we should be in contact with, follow-up closely with his care team if we do have a visit . crystal flat grinder Antione Carlos Eduardo reached out to the member and his mother and explained the [facility] program once again and asked if member would like an initial visit from [facility]. Member has agreed to schedule a visit. Care team would like [facility] to be aware that member may frequent visits to the ED and is hospitalize often or kept overnight and may not be home for schedule visit, please reach out to member prior of visit. ...................... ...................... ...................... ...................... ...................... ...................... ......... [facility] Nurse Triage Notes (Issa Corbett): Reason For [...] -Brett Corbett RN 09/04 @ 1025- Per [facility] dispatcher, patient requesting visit be scheduled for Friday, 09/06 -Brett Corbett RN SEGMD: Fredi Woodall CHIEF CHEMIST referral:Albert Rose is a 29-year-old man with [...] who is his healthcare proxy and is Syrian-speaking only. Field Laborer Organization Information for Rene [facility] Business Legal Name: [employer]. Address: [address] [place] [id number], Community Resource Consultant: Mayank VORA No.: [id number] Field Laborer POC Test Results from Rene Dejesus Blood Glucose Measurement (11:52:55) Blood Glucose: 133 mg/dL ...................... ...................... ...................... ...................... ...................... ...................... ......... Field Laborer Note From Rene Dejesus: Dispatched to the [...] diabetic issues. Pts nurse reached out to [facility] and requested a well being check and [...] Red flags discussed. ALL times are approx. [facility] Lab Orders: glucose, fingerstick, blood: Performed [facility] Medication Orders: bacitracin 500 unit/gram topical ointment: Administered ...................... ...................... ...................... ...................... ...................... ...................... ......... [facility] Consulted: Sue Sheppard ...................... ...................... ...................... ...................... ...................... ...................... ......... Disposition: Fulfilled Sue Sheppard MD [address] [place] [address],[address], [place], [phone], [facility] 09/07/2024 13:58:48
--- OUTSIDE RECORDS SUMMARY | 2025-02-02 19:07 | XMS_ITS | Encounter Summary ---
Author Organization [employer] Address [address] [facility] 7t [place] [address] Care Team Providers Care Outside Repairer Special Name Role Phone Ela Webber MD Primary Care Provider + Reason for Visit * Reason Comments Med Refill Encounter Details Date Type Department Care Team ([facility] st Contact Info) Description 12/16/[address] [facility] [address] [place], [place] [phone] Pavithra Worthy FNP [address] [place] [address] Gastroesophageal reflux disease without esophagitis Social History [...] Description 02/08/2025 10:45 AM EST Office Visit [facility] [address] [place] [address] Ela Webber MD 230 [place] [address] 07/13/2025 9:00 AM EDT Office Visit [facility] [address] [place] [address] Reji, Kamille, OD 230 [place] [address] documented as of this encounter Visit Diagnoses Diagnosis Gastroesophageal reflux disease without esophagitis Esophageal reflux documented in this encounter Additional Health Concerns Assessment Noted Time PHQ-9 Depression Total Score: 0 11/30/19 23 1:30 PM EDT documented as of this encounter Care Teams Outside Repairer Special Relationship Specialty Start Date End Date Ela Webber MD [address] [place] [address] PCP - General Internal Medicine 11/18/23 documented as of this encounter
--- OUTSIDE RECORDS SUMMARY | 2025-02-02 19:07 | XMS_ITS | Encounter Summary ---
Author Organization [employer] Address [address] [facility] 7t [place] [address] Care Team Providers Care Veterinary Attendant Name Role Phone Ela Webber MD Primary Care Provider + Reason for Visit * Reason Comments Med Refill Encounter Details Date Type Department Care Team ([facility] st Contact Info) Description 11/18/2023 Refill [facility] [address] [place], [place] [phone] Pavithra Worthy FNP [address] [place] [address] Gastroesophageal reflux disease without esophagitis Social History [...] Description 02/08/2025 10:45 AM EST Office Visit [facility] [address] [place] [address] Ela Webber MD 230 [place] [address] 07/13/2025 9:00 AM EDT Office Visit [facility] [address] [place] [address] Reji, Kamille, OD [address] [place] [address] documented as of this encounter Visit Diagnoses Diagnosis Gastroesophageal reflux disease without esophagitis Esophageal reflux documented in this encounter Additional Health Concerns Assessment Noted Time PHQ-9 Depression Total Score: 0 11/30/19 23 1:30 PM EDT documented as of this encounter Care Teams Veterinary Attendant Relationship Specialty Start Date End Date Ela Webber MD [address] [place] [address] PCP - General Internal Medicine 11/18/23 documented as of this encounter
--- OUTSIDE RECORDS SUMMARY | 2025-02-02 19:07 | XMS_ITS | Encounter Summary ---
Author Organization [employer] Address [address] [facility] 7t [place] [address] Care Team Providers Care District Fire Management Officer Name Role Phone Ela Webber MD Primary Care Provider + Reason for Visit * Reason Onset Date Comments ER Follow-up 11/21/2023 Encounter Details Date Type Department Care Team ([facility] st Contact Info) Description 11/21/2023 Telephone [facility] [address] [place], [place] [phone] Ela Webber MD [address] [place] [address] ER Follow-up Social History Tobacco Use Types [...] breathing problem. Pt. Verbally agreed and understood. [facility] hours are reviewed. * Telephone Encounter - Akosua Dwyer - 11/21/2023 10:44 AM EDT Patient calling to report ED visit on : Date: 11/19/23 Hospital: [facility] Seen for: Fluid in lungs, Needed Dialysis Patient advised will forward to team nurse for follow up documented in this encounter Plan of Treatment Upcoming Encounters Date Type Department Care Team (Late st Contact Info) Description 02/08/2025 10:45 AM EST Office Visit [facility] [address] [place] [address] Ela Webber MD [address] [place] [address] 07/13/2025 9:00 AM EDT Office Visit [facility] [address] [place] [address] Kamille Mendoza, OD [address] [place] [address] documented as of this encounter Visit Diagnoses Not on filedocumented in this encounter Additional Health Concerns Assessment Noted Time PHQ-9 Depression Total Score: 0 11/30/19 23 1:30 PM EDT documented as of this encounter Care Teams District Fire Management Officer Relationship Specialty Start Date End Date Ela Webber MD [address] [place] [address] PCP - General Internal Medicine 11/18/23 documented as of this encounter
--- OUTSIDE RECORDS SUMMARY | 2025-02-02 19:08 | XMS_ITS | Encounter Summary ---
Author Organization [employer] Address [address] [facility] 7t [place] [address] Care Team Providers Care Semiautomatic Stitcher Operator Name Role Phone Ela Webber MD Primary Care Provider + Reason for Visit * Reason Onset Date Comments Call Back Request 06/03/2024 Encounter Details Date Type Department Care Team ([facility] Contact Info) Description 06/03/2024 Telephone [facility] [address] [place], [place] [phone] Ela Webber MD [address] [place] [address] Call Back Request Social History Tobacco Use [...] callback no calls are return. Mom ask repairer typewriter to verify appointments as 2 last appointments where cancelled. Mom states please call her for anything that has to do with pt as he wont return calls or answer phone calls. Mom inform pt is diabetic and that worries her he don't get treated. Kia (MOM) [phone] documented in this encounter Plan of Treatment Upcoming Encounters Date Type Department Care Team (Late st Contact Info) Description 02/08/2025 10:45 AM EST Office Visit [facility] [address] [place] [address] Ela Webber MD [address] [place] [address] 07/13/2025 9:00 AM EDT Office Visit [facility] [address] [place] [address] Kamille Mendoza OD 230 [place] [address] documented as of this encounter Visit Diagnoses Not on filedocumented in this encounter Additional Health Concerns Assessment Noted Time PHQ-9 Depression Total Score: 0 11/30/19 23 1:30 PM EDT documented as of this encounter Care Teams Semiautomatic Stitcher Operator Relationship Specialty Start Date End Date Ela Webber MD [address] [place] [address] PCP - General Internal Medicine 11/18/23 documented as of this encounter
--- OUTSIDE RECORDS SUMMARY | 2025-02-02 19:08 | XMS_ITS | Encounter Summary ---
Author Organization [employer] Address [address] [facility] 7t [place] [address] Care Team Providers Care Auditor Medical Claims Name Role Phone Pavithra Worthy Primary Care Provider [phone] Ela Webber MD Primary Care Provider + Reason for Visit * Reason Onset Date Comments FYI 04/30/2023 Encounter Details Date Type Department Care Team ([facility] st Contact Info) Description 04/30/2023 Telephone [facility] [address] [place], [place] [phone] Pavithra Worthy FNP [address] [place], [place] [phone] FYI Social History Tobacco Use Types Packs/Day [...] - 04/30/2023 2:44 PM EST [facility] from [facility] with [facility] calling to inform PCP pt refuse services today 04/30/2023 and will be admitted on FridayMay 05. documented in this encounter Plan of Treatment Upcoming Encounters Date Type Department Care Team (Late st Contact Info) Description 02/08/2025 10:45 AM EST Office Visit [facility] [address] [place] [address] Ela Webber MD [address] [place] [address] 07/13/2025 9:00 AM EDT Office Visit [facility] OPT[facility] [address] [place] [address] Kamille Mendoza, OD [address] [place] [address] documented as of this encounter Visit Diagnoses Not on filedocumented in this encounter Additional Health Concerns Assessment Noted Time PHQ-9 Depression Total Score: 0 11/30/19 23 1:30 PM EDT documented as of this encounter Care Teams Auditor Medical Claims Relationship Specialty Start Date End Date Pavithra Worthy FNP [address] [place] [address] PCP - General Family Medicine 03/06/22 11/17/23 Ela Webber MD [address] [place] [address] PCP - General Internal Medicine 11/18/23 documented as of this encounter
--- OUTSIDE RECORDS SUMMARY | 2025-02-02 19:08 | XMS_ITS | Encounter Summary ---
Author Organization [employer] Address [address] [facility] 7t [place] [address] Care Team Providers Care Construction Specialist Name Role Phone Pavithra Worthy Primary Care Provider [phone] Ela Webber MD Primary Care Provider + Encounter Details Date Type Department Care Team ([facility] st Contact Info) Description 04/30/2023 Telephone [facility] [address] [place], [place] [phone] Pavithra Worthy FNP [address] [place], [place] [phone] Social History Tobacco Use Types Packs/Day Years [...] 10:45 AM EST Office Visit [facility] [address] [place] [address] Ela Webber MD [address] [place] [address] 07/13/2025 9:00 AM EDT Office Visit [facility] OPTOMETRY [address] [place] [address] Reji, Kamille, OD [address] [place] [address] documented as of this encounter Visit Diagnoses Not on filedocumented in this encounter Additional Health Concerns Assessment Noted Time PHQ-9 Depression Total Score: 0 11/30/19 23 1:30 PM EDT documented as of this encounter Care Teams Construction Specialist Relationship Specialty Start Date End Date Pavithra Worthy FNP [address] [place] [address] PCP - General Family Medicine 03/06/22 11/17/23 Ela Webber MD [address] [place] [address] PCP - General Internal Medicine 11/18/23 documented as of this encounter
--- OUTSIDE RECORDS SUMMARY | 2025-02-02 19:08 | XMS_ITS | Encounter Summary ---
Author Organization [employer] Address [address] [facility] 7t [place] [address] Care Team Providers Care R D Internship Name Role Phone Pavithra Worthy Primary Care Provider [phone] Ela Webber MD Primary Care Provider + Encounter Details Date Type Department Care Team (Late Contact Info) Description 04/25/2022 Abstract [facility] [address] [place], [place] [phone] Delma Stevenson RN Social History Tobacco Use [...] Description 02/08/2025 10:45 AM EST Office Visit [facility] [address] [place], [place] [phone] Ela Webber MD 230 [place] [address] 07/13/2025 9:00 AM EDT Office Visit [facility] [address] [place], [place] [phone] Kamille Mendoza, OD [address] [place] [address] documented as of this encounter Visit Diagnoses Not on filedocumented in this encounter Care Teams R D Internship Relationship Specialty Start Date End Date Pavithra Worthy FNP [address] [place] [address] PCP - General Family Medicine 03/06/22 11/17/23 Ela Webber MD [address] [place], [place] [phone] PCP - General Internal Medicine 11/18/23 documented as of this encounter
--- OUTSIDE RECORDS SUMMARY | 2025-02-02 19:08 | XMS_ITS | Encounter Summary ---
Author Organization [employer] Address [address] [facility] 7t [place] [address] Care Team Providers Care Engineer Exhauster Name Role Phone Pavithra Worthy Primary Care Provider [phone] Ela Webber MD Primary Care Provider + Encounter Details Date Type Department Care Team (Late st Contact Info) Description 12/11/2022 Telephone [facility] [address] [place] [phone] Pavithra Worthy FNP [address] [place] [address] Social History Tobacco Use Types Packs/Day Years [...] Description 02/08/2025 10:45 AM EST Office Visit [facility] [address] [place] [phone] Ela Webber MD [address] [place], [place] [phone] 07/13/2025 9:00 AM EDT Office Visit [facility] [address] [place], [place] [phone] Kamille Mendoza, OD [address] [place] [address] documented as of this encounter Visit Diagnoses Not on filedocumented in this encounter Additional Health Concerns Assessment Noted Time PHQ-9 Depression Total Score: 0 11/30/19 23 1:30 PM EDT documented as of this encounter Care Teams Engineer Exhauster Relationship Specialty Start Date End Date Pavithra Worthy FNP [address] [place] [address] PCP - General Family Medicine 03/06/22 11/17/23 Ela Webber MD [address] [place], [place] [phone] PCP - General Internal Medicine 11/18/23 documented as of this encounter
--- OUTSIDE RECORDS SUMMARY | 2025-02-02 19:08 | XMS_ITS | Clinical Summary ---
Author Organization [employer] Address [address] [facility] 7[address] [place] [address] Care Team Providers Care Press Pipe Inspector Name Role Phone Ela Webber MD [...] MINI PEN NEEDLES 31G X 5 MM [facility] USE DIRECTED UP TO FOUR TIMES A [...] at least 6 hours apart Active B Fhkuwun-K-Ecccm Acid (Full Spectrum B) 0.8 MG tablet [...] 5 mg by mouth Once per day. 2025 Active Continuous Glucose Sensor (FreeStyle Anton 3 Sensor) misc 1 each before breakfast, before lunch, and before evening meal for 28 days. 2 each 3 Active Lancets misc Use to test blood sugar 3x times daily 100 each Active Blood Glucose Monitoring Suppl (FreeStyle Tyler Lite) w/Device kit Use to test blood sugar 3x times daily 1 kit Active atorvastatin (Lipitor) 80 MG tabletIndicatio ns:Other congestive heart failure (HCC) Take 1 tablet (80 mg) by mouth Once per day. 90 tablet 3 2025 Active carvedilol (Coreg) 25 MG tablet Take 1 tablet (25 mg) by mouth 2 times daily. 180 tablet 3 2025 Active DULoxetine (Cymbalta) [address] capsule Take 1 capsule (60 mg) by mouth Once per day. 90 capsule 3 Active melatonin 3 MG tablet Take 1 [...] BY MOUTH AT BEDTIME 30 tablet 11 Active insulin glargine (Lantus SoloStar) 100 UNIT/ML pen Inject 12 Units under the skin at bedtime. Active insulin lispro (HumaLOG KWIKPEN) 100 UNIT/ML injection Inject 2-10 subcutaneous three times a day before meals Active gabapentin (Neurontin) 100 MG capsule Active insulin lispro (HumaLOG) 100 UNIT/ML injection [...] cleanup (will not trigger notification to Pharmacy)) gabapentin (Neurontin) 300 MG capsule Take 1 capsule (300 mg) by mouth 2 times daily. 180 capsule 025 2024 Discontinued(T herapy completed) Hospital, Clinic, or Other Facility Administered Medication [...] las Rx, we have briefly discussed replacing terminal block assembler opioid use with Butrans and he is [...] ESRD (end stage renal disease) on dialysis ([facility]) 06/29/2023 Assessment & Plan (09/03/2024 3:32 PM EDT): On hemodialysis at [facility] Nephrology Assessment & Plan (12/29/2023 5:06 PM EDT): - on hemodialysis at [facility] LV (left ventricular) mural thrombus 03/10/2023 03/10/2023 Assessment & Plan (11/12/2024 3:21 PM EDT): On Eliquis due to high risk embolism (history of very low LVEF/CHF) Follow-up with cardiology Assessment & Plan (09/03/2024 3:36 PM EDT): High risk due to low LVEF, continue Eliquis and follow-up with manager organizational Assessment & Plan (12/30/2023 3:39 PM EDT): - high risk due to low LVEF - continue Eliquis and f/u with cardio Acid reflux 01/07/2023 01/07/2023 Assessment & Plan (09/03/2024 3:31 PM EDT): Status post recent hospital discharge, doing well on Protonix Continue Protonix daily and follow-up with me in 1 month, consider H. pylori testing. Pulmonary hypertension due to left heart disease ([facility]) 01/07/2023 01/07/2023 Chronic HFrEF (heart failure with [...] - pt follows up with cardiology at [facility], will obtain OV results - continue Amiodarone, [...] be seen at his house by a director of restaurant. Provided education around integrated medicine and the options of follow up BE's as needed. Provided contact information should questions or concerns arise. Plan: Yimi will be evaluated by [facility] Crisis at his home today. [...] daughter and two siblings. Not working receiving [employer]. Multiple health chronic conditions. Denies Hx of [...] by family. PLAN: 1. Follow up with [facility]: Not recommended for follow-up 2. Patient goal is to engage in OP services 3. Behavioral Recommendations a. Ind. Therapy b. Medication management c. Use of coping skills provided d. [facility] contact number for extra support. Polysubstance [...] pharmacies including ours. His mother is his PATIENT SERVICES CLERK, will consider [facility] for med administration, will follow-up with patient at next visit Assessment & Plan (05/08/2022 9:48 AM EST): Qualifies for PATIENT SERVICES CLERK services. Flor asked medical records to reach out to [facility] to get medical records for PCP. Primary [...] EST): Heart failuer EF 15-20%. Managed through [facility] cardiology. Tooth disorder 03/21/2022 History of [...] I will do the PA for CGM ([employer] anton 3) Continue Lantus 12 units for now, follow-up with rn bariatric next week. We discussed importance of having [...] me in 3w, he will fu with [facility] endocrinology next month, follow-up with me in [...] and mother. They will go immediately to [facility] ED. Discussed with pt importance of having small infraction meals and avoid long periods of fasting. No change on meds and follow up with rn bariatric or earlier prn. Assessment & Plan (12/30/2023 3:23 PM EDT): - uncontrolled, patient not compliant with [facility], last OV was last year. I called endocrinology and appt was given for 01/09/24 at 3pm. Info was given to patient and mother to fu with them, they're advised to bring CGM device. - continue close f/u with [facility] endo - use CGM sensors for fgstk [...] atelectasis. - needs assistance for ADLs, has PATIENT SERVICES CLERK and lives with parents - prescription for [...] organization. Date Type Department Care Team Description 01/31/2025 Patient Outreach [facility] [address], [place] [phone] Ela Webber MD 01/27/2025 Orders Only GENERIC EXTERNAL DATA DEPARTMENT Provider, Generic External Data 01/24/2025 Patient Outreach [facility] [address] [place] [address] Ela Webber MD Transition Of Care (Tcm) (HDF scheduled ) 01/20/[address] [phone] Ela Webber MD Appointment Request 01/19/[address] [phone] Ela Webber MD chart prep 01/19/2025 Telephone [facility] [address] [place] [address] Ela Webber MD 01/10/2025 9:30 AM EDT Office Visit [facility] OPTOMETRY [address] [place] [address] Kamille Mendoza, OD History of proliferative retinopathy due to diabetes mellitus (Primary Dx); Traction detachment of left retina; 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; Epiretinal membrane (ERM) of both eyes; Retinal arteriolar sclerosis; Early cataracts, bilateral 01/10/2025 Travel 01/06/2025 Telephone [facility] [address] [place] [phone] Ela Webber MD No Show 01/05/2025 Telephone [facility] [address] [place] [phone] Ela Webber MD Chart prep 12/30/2024 Patient Outreach [facility] [address] [place] [phone] Ela Webber MD Transition Of Care (Tcm) (HDF unscheduled) 12/30/2024 Patient Outreach [facility] [address] [place] [phone] Ela Webber MD 12/23/2024 Telephone [facility] [address] [place] [phone] Kay Workman, electric locomotive firer/fireman 12/21/2024 Refill [facility] [address] [place] [phone] Ela Webber MD 12/07/2024 Patient Outreach [address] [phone] Ela Webber MD Transition Of Care (Tcm) (HDF scheduled and SDOH completed on 08/26/24 ) 11/30/2024 Patient Outreach [facility] [address] [place] [phone] Ela Webber MD 11/29/2024 Patient Outreach [facility] [address] [place] [address] Ela Webber MD Transition Of Care (Tcm) (HDF unscheduled LVM ) 11/23/2024 Patient Outreach [address] [phone] Ela Webber MD Transition Of Care (Tcm) (HDF unscheduled) 11/16/[address] [address] Kay Workman RN CGM PA 11/12/2024 12:15 PM EDT Office Visit [address] [phone] Ela Webber MD Type 1 diabetes mellitus with hyperosmolarity, uncontrolled (CMS/HCC) (Primary Dx); Chronic HFrEF (heart failure with reduced ejection fraction) (CMS/HCC); LV (left ventricular) mural thrombus; Acquired hypothyroidism; Diabetic polyneuropathy associated with type 1 diabetes mellitus (CMS/HCC); Generalized anxiety disorder; Chronic pain syndrome; Arm ulcer, with fat layer exposed (CMS/HCC); Other congestive heart failure (CMS/HCC); Polypharmacy 11/12/2024 Travel 11/11/[address] [phone] Ela Webber MD chart prep 11/10/[address] [phone] Ela Webber MD FYI 11/10/2024 Patient Outreach [facility] [address], [place] [phone] Ela Webber MD Transition Of Care (Tcm) (HDF unscheduled. ) 11/09/[address] [phone] Ela Webber MD verbal consent from Last 3 Months Immunizations Immunization Administration Dates Next Due DTaP 10/21/1997, 6,1993,08/22,1993 Hep A, Adult 10/06/2014,08/11/2013 Hep B, Adolescent or Pediatric 02/07/1994,1993 Hib (HbOC) 08/07/1994, 4,1993,06/22 IPV 10/21/1997, 4,1993,06/22 Influenza injectable [...] Description 02/08/2025 10:45 AM EST Office Visit [facility] [address] [place] [address] Ela Webber MD [address] [place] [address] 07/13/2025 9:00 AM EDT Office Visit [facility] OPTOMETRY [address] [place] [address] Kamille Mendoza, OD [address] [place] [address] Health Maintenance Due Date Last Done Comments Dental Prophylaxis 1993 Dental X-Ray: Bitewings 1993 HIV Screening 1993 Lipid Panel 1993 02/02/2025 Hepatitis B Vaccines (3 of 3 - [...] 11/12/2025 11/12/2024, 11/12/2024, 11/12/2024, Additional history exists Eye Exam 01/10/2026 01/10/2025, 12/23, 01/10/2025, Additional history exists Tobacco Screening 01/27/2026 01/27/2025 DTaP/Tdap/Td Vaccines (9 - Td or Tdap) [...] Procedure Name Priority Date/Time Associated Diagnosis Comments LIPID PANEL WITH REFLEX TO DIRECT LDL Routine 02/02/2025 4:46 PM EST Type 1 diabetes mellitus with hyperosmolarity, uncontrolled (HCC) BASIC METABOLIC PANEL Routine 02/02/2025 4:46 PM EST Type 1 diabetes mellitus with hyperosmolarity, uncontrolled (HCC) TSH W/REFLEX TO FT4 Routine 02/02/2025 4 :46 PM EST Type 1 diabetes mellitus with hyperosmolarity, uncontrolled (HCC) GLUCOSE, WHOLE BLOOD Routine 01/27/2025 1:20 PM EST OCT, OPTIC NERVE - OU - BOTH EYES Routine 01/10/2025 9:30 AM EDT 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 POCT GLYCATED HEMOGLOBIN, TOTAL Routine 11/12/2024 12:11 [...] Recently Relevant to Health Maintenance Results * TSH with Reflex to Free T4 (02/02/2025 4:46 PM EST) TSH reflex Free T4 2.53 0.32 - 4.0 uIU/mL [facility] Blood 02/02/2025 4:46 PM EST 02/02/2025 4:46 PM EST us Ela Webber MD LAB BLOOD ORDERABLES Fin al Result [facility] [address] [place] [phone] * (ABNORMAL) Lipid Panel with Reflex to Direct LDL (02/02/2025 4:46 PM EST) Triglycerides 91 <150 mg/dL [facility] Comment:Desirable Triglyceri de: less than 150 mg/dLBorderline High Triglyceride 150-199 mg/dLHigh Triglyceride: 200-499 mg/dLVery High Triglyceride: greater than or equal to 5OO mg/dL Cholesterol 176 <200 mg/dL [facility] Comment:Desirable Cholestero l: less than 200 mg/dLBorderline High Cholesterol: 200-239 mg/dLHigh Cholesterol: greater than 239 mg/dL LDL Cholesterol Calculated 105(H) <100 mg/dL [facility] Comment:Desirable LDL: less than 100 mg/dLNear Optimal/Above Optimal LDL: 110- 129 mg/dLBorderline High LDL: 130-159 mg/dLHigh LDL: 160-189 mg/dLVery High LDL: greater than or equal to 190 mg/dL HDL Cholesterol 53 >40 mg/dL [facility] Comment:Desirable HDL: great er than 40 mg/dL Note: This HDL assay may give artificially low results in patients with liver disease. Blood 02/02/2025 4:46 PM EST 02/02/2025 4:46 PM EST us Ela Webber MD LAB BLOOD ORDERABLES Fin al Result [facility] [address] [place] [phone] * (ABNORMAL) Basic Metabolic Panel (02/02/2025 4:46 PM EST) Sodium 143 135 - 145 mmol/L [facility] Potassium 5.5(H) 3.3 - 5.1 mmol/L [facility] Chloride 108 96 - 108 mmol/L [facility] Carbon Dioxide 26 22 - 29 mmol/L [facility] Anion Gap 15 12 - 20 [facility] Urea Nitrogen (BUN) 48(H) 9 - 16 mg/dL [facility] Creatinine, Serum 3.34(H) 0.5 - 1.4 mg/dL [facility] Estimated Glomerular Filt Rate 22 [facility] Comment:Chronic Kidney Disea se: Estimated GFR < 60 mL/min/1.97r0Mgbmty Kidney Disease: Estimated GFR < 15 mL/min/1.73m2 Glucose 152(H) 60 - 115 mg/dL [facility] Calcium 8.3(L) 8.4 - 10.2 mg/dL [facility] Blood Venous blood specimen / Unknown 02/02/2025 4:46 PM EST 02/02/2025 4:46 PM EST us Ela Webber MD LAB BLOOD ORDERABLES Fin al Result [facility] [address] [place] [phone] * (ABNORMAL) Glucose, Whole Blood (01/27/2025 1:20 PM EST) Glucose, Whole Blood 308(H) 60 - 115 mg/dL [facility] Comment:METER #: [id number] 0Testing performed in the Endocrinology Department [address] , [address], [facility]. 01/27/2025 1:20 PM EST 01/27/2025 1:25 PM EST us Generic External Data Provider LAB BLOOD ORDERAB LES Final Result Performing Organization Address [facility]/ZIP Co de Phone Number [facility] [address] [place] [phone] * OCT, Optic Nerve - OU - Both Eyes (01/10/2025 9:30 AM EDT) Narrative Kamille Mendoza, OD - 01/28/2025 10:20 AM EST Images from the original result were not included. OCT OPTIC NERVE INTERPRETATION Optical Coherence Tomography Interpretation Report Test Details: Poor scans due to fixation errors Measurements: OD OS C/D Horizontal 0.59 0.77 C/D Vertical 0.54 0.86 Disc area 2.10 mm 2 2.13 mm 2 RNFL Average 79 microns 107 microns Test findings: OD: Definite RNFL thinning in superior quadrant, normal RNFL thickness in all other quadrants. OS: Borderline RNFL thinning in the superior quadrant, normal RNFL thickness remaining quadrants. 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 He is considered a glaucoma suspect in the right eye due to larger cupping. Will have him return in 4-6 months for a visual field. us Kamille Mendoza OD OPHTH TOMOGRAPHY Edited Resul t - Final * (ABNORMAL) POCT HGB A1C (11/12/2024 12:11 PM EDT) Hemoglobin A1C 9.8(A) 4.0 - 5.7 % QC Media Lot # [id number] Lot# Expiration Date Blood 11/12/2024 12:1 1 PM EDT Ela Webber MD POINT OF CARE TEST ENTER /EDIT ORDERABLES Final Result * (ABNORMAL) POCT Glucose (11/12/2024 12:10 PM EDT) Pathologist [facility] Glucose Blood, POC 343(A) 60 - 200 mg/dL QC Media Lot # [id number] Lot# Expiration Date Blood Capillary blood specimen / Unknown 11/12/2024 12:10 PM EDT Ela Webber MD POINT OF CARE TEST ENTER /EDIT ORDERABLES Final Result * Hepatitis Panel, General (11/19/2022 12:31 PM EDT) Pathologist [facility] Hepatitis A IgM Nonreactive Nonreactive [facility] Comment:IgM antibodies to SPENCE V not detected; does not exclude earlyacute or recovered HAV infection. ~Hepatitis B Surface Antibody REACTIVE Nonreactive [facility] Comment:REACTIVE: > 11.99 mI U/mL Hepatitis B Core Antibody Nonreactive Nonreactive [facility] Hepatitis C Antibody Nonreactive Nonreactive [facility] Comment:Antibodies to HCV no t detected; does not exclude early acuteHCV infection. Hepatitis B Surface Ag Negative Negative [facility] 11/19/2022 12:3 1 PM EDT 11/19/2022 12:36 PM EDT [facility] External Provider LAB BLO OD ORDERABLES Final Result [facility] [address] [place] [phone] [phone] from Last 3 Months or Most Recently Relevant to Health Maintenance Insurance [facility] [employer] [facility] ONE CARE < 65 DENTAL - [facility] MED[employer] DDS ADULT Care Teams Press Pipe Inspector Relationship Specialty Start Date End Date Ela Webber MD [address] [place] [phone] PCP - General Internal Medicine 11/18/23
--- OUTSIDE RECORDS SUMMARY | 2025-02-02 19:08 | XMS_ITS | Encounter Summary ---
Author Organization [employer] Address [address] [facility] 7[address] [place] [address] Care Team Providers Care Career Orientation Teacher Name Role Phone Pavithra Worthy Primary Care Provider [phone] Ela Webber MD Primary Care Provider + Reason for Visit * Reason Onset Date Comments Durable Medical Equipment 10/01/2023 FYI 10/01/2023 Encounter Details Date Type Department Care Team (Late st Contact Info) Description 10/01/[address] [facility] [address], [place] [phone] Pavithra Worthy FNP [address], [place] [phone] Durable Medical Equipment; FYI Social History Tobacco [...] 8:37 AM EDT T[facility] from [facility] calling to inform the provider a OT evaluation was done on 09/29 and as of right now is not seeking for verbal orders however is requesting for shower grab bars documented in this encounter Plan of Treatment Upcoming Encounters Date Type Department Care Team (Late st Contact Info) Description 02/08/2025 10:45 AM EST Office Visit [facility] [address] [place] [address] Ela Webber MD [address] [place] [address] 07/13/2025 9:00 AM EDT Office Visit [facility] OPTOMETRY [address] [place] [address] Kamille Mendoza, OD [address] [place] [address] documented as of this encounter Visit Diagnoses Not on filedocumented in this encounter Additional Health Concerns Assessment Noted Time PHQ-9 Depression Total Score: 0 11/30/19 23 1:30 PM EDT documented as of this encounter Care Teams Career Orientation Teacher Relationship Specialty Start Date End Date Pavithra Worthy FNP [address] [place] [address] PCP - General Family Medicine 03/06/22 11/17/23 Ela Webber MD [address] [place] [address] PCP - General Internal Medicine 11/18/23 documented as of this encounter
--- OUTSIDE RECORDS SUMMARY | 2025-02-02 19:08 | XMS_ITS | Encounter Summary ---
Author Organization [employer] Address [address] [facility] 7t [place] [address] Care Team Providers Care Injection Molder Name Role Phone Pavithra Worthy Primary Care Provider [phone] Ela Webber MD Primary Care Provider + Encounter Details Date Type Department Care Team ([facility] st Contact Info) Description 08/20/2022 Telephone [facility] [address] [place], [place] [phone] Pavithra Worthy FNP [address] [place] [address] Social History Tobacco Use Types Packs/Day Years [...] 11:27 AM EDT Tc oli Morales from [facility] home services calling to inform pt will be re admitted to home services[facility] 08[facility]22 due to being at [facility] on 08/14 and 08/15 for heart failure and diabetes . Also informs pt INR and labs will be taken on 08/21/22. Any question please call to clarify at phone #[phone] documented in this encounter Plan of Treatment Upcoming Encounters Date Type Department Care Team (Late st Contact Info) Description 02/08/2025 10:45 AM EST Office Visit [facility] [address] [place] [address] Ela Webber MD [address] [place] [address] 07/13/2025 9:00 AM EDT Office Visit [facility] OPTOMETRY [address] [place] [address] Reji, Kamille, OD [address] [place] [address] documented as of this encounter Visit Diagnoses Not on filedocumented in this encounter Care Teams Injection Molder Relationship Specialty Start Date End Date Pavithra Worthy FNP [address] [place] [phone] PCP - General Family Medicine 03/06/22 11/17/23 Ela Webber MD [address] [place] [phone] PCP - General Internal Medicine 11/18/23 documented as of this encounter
--- OUTSIDE RECORDS SUMMARY | 2025-02-02 19:08 | XMS_ITS | Encounter Summary ---
Author Organization [employer] Address [address] [facility] [address] [place] [address] Care Team Providers Care Coroner'S Juror Name Role Phone Pavithra Worthy Primary Care Provider [phone] Ela Webber MD Primary Care Provider + Reason for Visit * Reason Onset Date Comments FYI 07/03/2022 Encounter Details Date Type Department Care Team ([facility] st Contact Info) Description 07/03/2022 Telephone [facility] [address], [place] [phone] Pavithra Worthy FNP [address] [place] [address] FYI Social History Tobacco Use Types Packs/Day [...] 12:41 PM EDT Tc from [facility] informing Provider that pt has missed Nurse visit today for anINR and has been missing several nursing Visits Please contact Jessica at [phone] documented in this encounter Plan of Treatment Upcoming Encounters Date Type Department Care Team (Late st Contact Info) Description 02/08/2025 10:45 AM EST Office Visit [facility] [address] [place] [address] Ela Webber MD [address] [place] [address] 07/13/2025 9:00 AM EDT Office Visit [facility] OPTOMETRY [address] [place] [address] Kamille Mendoza, OD [address] [place] [address] documented as of this encounter Visit Diagnoses Diagnosis Type 1 diabetes mellitus with hyperosmolarity, uncontrolled (HCC) documented in this encounter Care Teams Coroner'S Juror Relationship Specialty Start Date End Date Pavithra Worthy FNP [address] [place] [address] PCP - General Family Medicine 03/06/22 11/17/23 Ela Webber MD [address] [place] [phone] PCP - General Internal Medicine 11/18/23 documented as of this encounter
--- OUTSIDE RECORDS SUMMARY | 2025-02-02 19:08 | XMS_ITS | Clinical Summary ---
Author Organization [facility] Address [address] [place] [phone] Phone Care Team Providers Care Accounts Receivable Analyst Name Role Phone Marcell Worthynne Primary Care Provider [phone] Medications carvedilol (COREG) 25 MG tablet Take [...] 01/07/2025 Treatment [facility] [address] [phone] Sascha Magallon MD End stage renal disease; Dependence on renal dialysis 11/17/2024 Treatment [facility] [address] [phone] Sascha Magallon MD End stage renal disease; Dependence on renal dialysis 11/03/2024 Orders Only [facility] [address] [phone] Sascha Magallon MD from Last 3 Months [...] 3:00 AM EDT ELECTROLYTE PANEL Routine 11/24/2024 3:0 0 AM EDT MAGNESIUM Routine 11/24/2024 3:00 AM [...] EDT HEMOGLOBIN Routine 11/03/2024 3:00 AM EDT from Last 3 Months [...] ORDERABLES Final Re sult Performing Organization Address City/[facility] Co de Phone Number [facility] [address] [place] [address] * LIH (12/22/2024 3:00 AM EDT) Only the most recent of3 resultswithin the time period is included. Lipemia Normal Normal [facility] Icterus Normal Normal [facility] Hemolysis Normal Normal [facility] 12/22/2024 3:00 AM EDT 12/23/2024 1:41 PM EDT us Sascha Magallon MD LAB [id number] SOLICITED RESULTS Final Result Performing Organization Address City/State/[facility] de Phone Number [facility] [address] [place] [address] * (ABNORMAL) Kt/V Natural Log, URR (12/22/2024 3:00 AM EDT) Only the most recent of3 resultswithin the time period is included. Treatment [...] PM EDT us Sascha Magallon MD LAB [id number] SOLICITED RESULTS Final Result Performing Organization Address [facility] de Phone Number [facility] [address] [place] [address] * (ABNORMAL) Calcium Phosphorus Product, Adjusted (12/22/2024 3:00 AM EDT) Only the most recent of2 resultswithin the time period is included. Albumin 3.9 3.6 - 5.4 g/dL [facility] Calcium 8.5(L) 8.6 - 10.3 mg/dL [facility] Phosphorus, Serum 3.8 2.5 - 5.0 mg/dL [facility] Ca*PO4 32.3 <55.0 mg2/dL2 [facility] Calcium, Adjusted Total 8.6 8.6 - 10.3 mg/dL [facility] CA*PO4 CORRCTD 32.7 <55.0 mg2/dL2 [facility] 12/22/2024 3:00 AM EDT 12/23/2024 1:41 PM EDT Sascha Magallon MD LAB [id number] SOLICITED RESULTS Final Result Performing Organization Address [facility] de Phone Number [facility] [address] [place] [address] * BUN/CREATININE RATIO (12/22/2024 3:00 AM EDT) Only the most recent of2 resultswithin the time period is included. BUN/Creatinine Ratio 10.1 <=23.0 [facility] 12/22/2024 3:00 AM EDT 12/23/2024 1:41 PM EDT Sascha Magallon MD LAB [id number] SOLICITED RESULTS Final Result Performing Organization Address [facility] de Phone Number [facility] [address] [place] [address] * (ABNORMAL) TSAT (12/22/2024 3:00 AM EDT) Only the most recent of2 resultswithin the time period is included. Iron 44(L) 65 - 175 ug/dL [facility] Transferrin 123(L) 215 - 365 mg/dL [facility] TIBC 172(L) 211 - 406 ug/dL [facility] Iron Saturation (TSat) 26 22 - 52 % [facility] 12/22/2024 3:00 AM EDT 12/23/2024 1:41 PM EDT Sascha Magallon MD LAB BLOOD ORDERABLES Final Re sult Performing Organization Address [facility] de Phone Number [facility] [address] [place] [address] * (ABNORMAL) CBC and Differential (12/22/2024 3:00 AM EDT) Only the most recent of2 resultswithin the time period is included. DIFFERENTIAL [...] ORDERABLES Final Re sult Performing Organization Address [facility] Co de Phone Number [facility] [address] [place] [address] * (ABNORMAL) ALT (12/22/2024 3:00 AM EDT) Only the most recent of2 resultswithin the time period is included. ALT (SGPT) 9(L) 10 - 49 U/L [facility] 12/22/2024 3:00 AM EDT 12/23/2024 1:41 PM EDT Sascha Magallon MD LAB BLOOD ORDERABLES Final Re sult Performing Organization Address City/[facility] Co de Phone Number [facility] [address] [place] [address] * AST (12/22/2024 3:00 AM EDT) Only the most recent of2 resultswithin the time period is included. AST (SGOT) 13 <34 U/L [facility] 12/22/2024 3:00 AM EDT 12/23/2024 1:41 PM EDT Sascha Magallon MD LAB BLOOD ORDERABLES Final Re sult Performing Organization Address [facility] Co de Phone Number [facility] [address] [place] [address] * Protein, total (12/22/2024 3:00 AM EDT) Only the most recent of2 resultswithin the time period is included. Total Protein 6.4 6.4 - 8.9 g/dL [facility] 12/22/2024 3:00 AM EDT 12/23/2024 1:41 PM EDT Sascha Magallon MD LAB BLOOD ORDERABLES Final Re sult Performing Organization Address [facility] Co de Phone Number [facility] [address] [place] [address] * (ABNORMAL) Alkaline phosphatase (12/22/2024 3:00 AM EDT) Only the most recent of2 resultswithin the time period is included. Alkaline Phosphatase 157(H) 46 - 116 U/L [facility] 12/22/2024 3:00 AM EDT 12/23/2024 1:41 PM EDT Sascha Magallon MD LAB BLOOD ORDERABLES Final Re sult Performing Organization Address [facility] Co de Phone Number [facility] [address] [place] [address] * PTH, Intact (12/22/2024 3:00 AM EDT) PTH, Intact 263 160 - 721 pg/mL [facility] Comment: Suggested (KDIGO) ESRD maintenance range is two to nine times the upper normal limit (80.1 pg/mL) for the laboratory. 12/22/2024 3:00 AM EDT 12/23/2024 1:41 PM EDT Sascha Magallon MD LAB BLOOD ORDERABLES Final Re sult Performing Organization Address [facility] de Phone Number [facility] [address] [place] [address] * (ABNORMAL) Magnesium (12/22/2024 3:00 AM EDT) Only the most recent of2 resultswithin the time period is included. Magnesium 1.8(L) 1.9 - 2.7 mg/dL [facility] 12/22/2024 3:00 AM EDT 12/23/2024 1:41 PM EDT Sascha Magallon MD LAB BLOOD ORDERABLES Final Re sult Performing Organization Address [facility] de Phone Number [facility] [address] [place] [address] * Lactate dehydrogenase (12/22/2024 3:00 AM EDT) Only the most recent of2 resultswithin the time period is included. LDH 223 120 - 246 U/L [facility] 12/22/2024 3:00 AM EDT 12/23/2024 1:41 PM EDT Sascha Magallon MD LAB BLOOD ORDERABLES Final Re sult Performing Organization Address [facility] de Phone Number [facility] [address] [place] [address] * (ABNORMAL) Hemoglobin A1c (12/22/2024 3:00 AM EDT) Hemoglobin A1C 10.8(H) <5.7 % [facility] Comment: Methodology: Enzymatic Normal: <5.7% Prediabetes: 5.7-6.4% Diabetes: >6.4% Diabetic Glucose Control Evaluation: Therapeutic action suggested at >8.0% ADA recommends a glycemic goal of <7.0% 12/22/2024 3:00 AM EDT 12/23/2024 2:06 PM EDT Sascha Magallon MD LAB BLOOD ORDERABLES Final Re sult Performing Organization Address [facility] Co de Phone Number [facility] [address] [place] [address] * (ABNORMAL) Glucose, random (12/22/2024 3:00 AM EDT) Only the most recent of2 resultswithin the time period is included. Glucose 391(H) 70 - 99 mg/dL [facility] Comment: ADA guidelines outline the following fasting glucose ranges: Normal: <100 Prediabetes: 100-125 Diabetes: >125 12/22/2024 3:00 AM EDT 12/23/2024 1:41 PM EDT Sascha Magallon MD LAB BLOOD ORDERABLES Final Re sult Performing Organization Address [facility] Co de Phone Number [facility] [address] [place] [address] * (ABNORMAL) Ferritin (12/22/2024 3:00 AM EDT) Only the most recent of2 resultswithin the time period is included. Ferritin 898(H) 22 - 322 ng/mL [facility] 12/22/2024 3:00 AM EDT 12/23/2024 1:41 PM EDT Sascha Magallon MD LAB BLOOD ORDERABLES Final Re sult Performing Organization Address [facility] de Phone Number [facility] [address] [place] [address] * (ABNORMAL) Creatinine, serum (12/22/2024 3:00 AM EDT) Only the most recent of2 resultswithin the time period is included. Creatinine 2.98(H) 0.70 - 1.30 mg/dL [facility] 12/22/2024 3:00 AM EDT 12/23/2024 1:41 PM EDT Sascha Magallon MD LAB BLOOD ORDERABLES Final Re sult Performing Organization Address [facility] Co de Phone Number [facility] [address] [place] [address] * (ABNORMAL) Bilirubin, total (12/22/2024 3:00 AM EDT) Only the most recent of2 resultswithin the time period is included. Total Bilirubin <0.2(L) 0.3 - 1.2 mg/dL [facility] 12/22/2024 3:00 AM EDT 12/23/2024 1:41 PM EDT Sascha Magallon MD LAB BLOOD ORDERABLES Final Re sult Performing Organization Address [facility] de Phone Number [facility] [address] [place] [address] * (ABNORMAL) Lipid panel (12/22/2024 3:00 AM [...] ORDERABLES Final Re sult Performing Organization Address [facility] de Phone Number [facility] [address] [place] [address] * (ABNORMAL) Electrolyte panel (12/22/2024 3:00 AM EDT) Only the most recent of2 resultswithin the time period is included. Sodium 139 136 - 145 mEq/L [facility] Potassium 4.8 3.4 - 5.0 mEq/L [facility] Chloride 103 98 - 107 mEq/L [facility] Bicarbonate (CO2) 20(L) 21 - 31 mEq/L [facility] Anion Gap 16(H) 3 - 14 mEq/L [facility] 12/22/2024 3:00 AM EDT 12/23/2024 1:41 PM EDT Sascha Magallon MD LAB BLOOD ORDERABLES Final Re sult Performing Organization Address [facility] de Phone Number [facility] [address] [place] [address] * (ABNORMAL) Hemoglobin (11/03/2024 3:00 AM EDT) Hgb 11.5(L) 13.7 - 17.5 g/dL [facility] Hemoglobin x 3 34.5(L) 41.1 - 52.5 g/dL [facility] 11/03/2024 3:00 AM EDT 11/04/2024 12:34 PM EDT Sascha Magallon MD LAB BLOOD ORDERABLES Final Re sult Performing Organization Address [facility] de Phone Number [facility] [address] [place] [address] from Last [address] [place] [address] ([id number]) [facility] ([id number]) Care Teams Accounts Receivable Analyst Relationship Specialty Start Date End Date Pavithra Worthy [address] [place] [address] PCP - General 08/13/22
--- OUTSIDE RECORDS SUMMARY | 2025-02-02 19:08 | XMS_ITS | Encounter Summary ---
Author Organization [employer] Address [address] [facility] 7t [place] [address] Care Team Providers Care Quill Fixer Name Role Phone Pavithra Worthy Primary Care Provider [phone] Ela Webber MD Primary Care Provider + Encounter Details Date Type Department Care Team ([facility] Contact Info) Description 08/15/2022 [facility] Information Management [address] [place], [place] [phone] Pavithra Worthy FNP [address] [place] [address] Social History Tobacco Use Types Packs/Day Years [...] Upcoming Encounters Date Type Department Care Team ([facility] Contact Info) Description 02/08/2025 10:45 AM EST Office Visit [facility] [address] [place] [address] Ela Webber MD [address] [place] [address] 07/13/2025 9:00 AM EDT Office Visit [facility] OPTOMETRY [address] [place], [place] [phone] Kamille Mendoza, OD [address] [place] [address] documented as of this encounter Visit Diagnoses Not on filedocumented in this encounter Care Teams Quill Fixer Relationship Specialty Start Date End Date Pavithra Worthy FNP [address] [place] [address] PCP - General Family Medicine 03/06/22 11/17/23 Ela Webber MD [address] [place] [address] PCP - General Internal Medicine 11/18/23 documented as of this encounter
--- OUTSIDE RECORDS SUMMARY | 2025-02-02 19:08 | XMS_ITS | Encounter Summary ---
Author Organization [employer] Address [address] [facility] 7t [place] [address] Care Team Providers Care Necktie Stitcher Name Role Phone Pavithra Worthy Primary Care Provider + Ela Webber MD Primary Care Provider + Encounter Details Date Type Department Care Team (Late st Contact Info) Description 04/04/2022 Orders Only [facility] [address] [place], [place] [phone] Marybel Jackson FNP Social History Tobacco Use [...] 10:45 AM EST Office Visit [facility] [address] [place], [place] [phone] Ela Webber MD [address] [place] [address] 07/13/2025 9:00 AM EDT Office Visit [facility] OPT[facility]RY [address] [place], [place] [phone] Kamille Mendoza, OD [address] [place] [address] documented as of this encounter Visit Diagnoses Not on filedocumented in this encounter Care Teams Necktie Stitcher Relationship Specialty Start Date End Date Pavithra Worthy FNP [address] [place] [address] PCP - General Family Medicine 03/06/22 11/17/23 Ela Webber MD [address] [place], [place] [phone] PCP - General Internal Medicine 11/18/23 documented as of this encounter
--- OUTSIDE RECORDS SUMMARY | 2025-02-02 19:08 | XMS_ITS | Encounter Summary ---
Author Organization [employer] Address [address] [facility] 7t [place] [address] Care Team Providers Care Environmental Engineering Manager Name Role Phone Pavithra Wortyh Primary Care Provider [phone] Ela Webbre MD Primary Care Provider + Reason for Visit * Reason Onset Date Comments Hospital Follow-up 05/26/2023 Encounter Details Date Type Department Care Team ([facility] st Contact Info) Description 05/26/2023 Telephone [facility] [address] [place], [place] [phone] Pavithra Worthy FNP [address] [place], [place] [phone] Hospital Follow-up Social History Tobacco Use Types [...] from pt requesting a HDF appt. Hospital: [facility] Date of admission: 05/06/23 Discharge date: 05/24/23 Diagnosed: Low blood sugar documented in this encounter Plan of Treatment Upcoming Encounters Date Type Department Care Team (Late st Contact Info) Description 02/08/2025 10:45 AM EST Office Visit [facility] [address] [place] [address] Ela Webber MD [address] [place] [address] 07/13/2025 9:00 AM EDT Office Visit [facility] OPTOM[facility] [address] [place] [address] Kamille Mendoza, OD [address] [place] [address] documented as of this encounter Visit Diagnoses Not on filedocumented in this encounter Additional Health Concerns Assessment Noted Time PHQ-9 Depression Total Score: 0 11/30/19 23 1:30 PM EDT documented as of this encounter Care Teams Environmental Engineering Manager Relationship Specialty Start Date End Date Pavithra Worthy FNP [address] [place] [address] PCP - General Family Medicine 03/06/22 11/17/23 Ela Webber MD [address] [place] [address] [place] [address] PCP - General Internal Medicine 11/18/23 documented as of this encounter
--- OUTSIDE RECORDS SUMMARY | 2025-02-02 19:08 | XMS_ITS | Encounter Summary ---
Author Organization [employer] Address [address] [facility] 7t [place] [address] Care Team Providers Care Director Emergency Name Role Phone Pavithra Worthy Primary Care Provider [phone] Ela Webber MD Primary Care Provider + Reason for Visit * Reason Onset Date Comments FYI 06/13/2023 Encounter Details Date Type Department Care Team ([facility] st Contact Info) Description 06/13/2023 Telephone [facility] [address] [place], [place] [phone] Pavithra Worthy FNP [address] [place], [place] [phone] FYI Social History Tobacco Use Types Packs/Day [...] - 06/13/2023 10:22 AM EDT Tc from [place] with [facility] calling to inform was unable to renew services today . States will be going again to pt home Friday06/15/23 to try to renew services . documented in this encounter Plan of Treatment Upcoming Encounters Date Type Department Care Team (Late st Contact Info) Description 02/08/2025 10:45 AM EST Office Visit [facility] [address] [place] [address] Ela Webber MD [address] [place] [address] 07/13/2025 9:00 AM EDT Office Visit [facility] OPTOMETRY [address] [place] [address] Kamille Mendoza, OD [address] [place] [address] documented as of this encounter Visit Diagnoses Not on filedocumented in this encounter Additional Health Concerns Assessment Noted Time PHQ-9 Depression Total Score: 0 11/30/19 23 1:30 PM EDT documented as of this encounter Care Teams Director Emergency Relationship Specialty Start Date End Date Pavithra Worthy FNP [address] [place] [address] PCP - General Family Medicine 03/06/22 11/17/23 Ela Webber MD [address] [place] [address] [place] [address] PCP - General Internal Medicine 11/18/23 documented as of this encounter
--- OUTSIDE RECORDS SUMMARY | 2025-02-02 19:08 | XMS_ITS | Encounter Summary ---
Author Organization [employer] Address [address] [facility] 7t [place] [address] Care Team Providers Care Food Cart Attendant Name Role Phone Ela Webber MD Primary Care Provider + Encounter Details Date Type Department Care Team ([facility] st Contact Info) Description 01/31/2025 Patient Outreach [facility] [address] [place], [place] [phone] Ela Webber MD [address] [place] [address] Social History Tobacco Use Types Packs/Day Years [...] AM EDT documented as of this encounter Progress Notes * Teresa Muniz RN - 01/31/2025 3:39 PM EST Transition of Care Note Albert Wynn is going through a recent transition of care. Emergency Room Visit Date: 01/29/25 Facility: [facility] Diagnosis: abdominal apin Disposition: Discharged home Discharge summary in the chart: Yes Please contact for a telehealth RN visit * Kay Workman RN - 01/31/2025 3:39 PM EST [facility] records reviewed. Pt. In ED 01/29 for abdominal/ pain, N/V, missed dialysis the day prior. Thoracic US showed bilateral pleural effusions , pt. Diagnosed fluid overload and received dialysis in ED. Pt. Followed up with cardiology office today. Note sent to scan. TC placed to pt. For status check, call went straight to personal , left message requesting call back to Red Team RN upon receipt of message. Pt. To f/up at scheduled HDF with PCP 02/07 or sooner prn documented in this encounter Plan of Treatment Upcoming Encounters Date Type Department Care Team (Late st Contact Info) Description 02/08/2025 10:45 AM EST Office Visit [facility] [address] [place] [phone] Ela Webber MD [address] [place], [place] [phone] 07/13/2025 9:00 AM EDT Office Visit [facility] OPTOM[facility]RY [address] [place], [place] [phone] Reji, Kamille, OD [address] [place], [place] [phone] documented as of this encounter Visit Diagnoses Not on filedocumented in this encounter Additional Health Concerns Assessment Noted Time PHQ-9 Depression Total Score: 8 11/13/19 25 12:09 PM EDT documented as of this encounter Care Teams Food Cart Attendant Relationship Specialty Start Date End Date Ela Webber MD [address] [place], [place] [phone] PCP - General Internal Medicine 11/18/23 documented as of this encounter
--- OUTSIDE RECORDS SUMMARY | 2025-02-02 19:08 | XMS_ITS | Encounter Summary ---
Author Organization [employer] Address [address] [facility] 7t [place] [address] Care Team Providers Care Rim Technician Name Role Phone Pavithra Worthy Primary Care Provider [phone] Ela Webber MD Primary Care Provider + Encounter Details Date Type Department Care Team (Late st Contact Info) Description 10/02/2022 Orders Only [facility] MED[facility]INE [address] [place] [address] Pavithra Worthy FNP [address] [place] [address] Social History Tobacco Use Types Packs/Day Years [...] AM EST Office Visit [facility] MED[facility]INE [address] [place] [address] Ela Webber MD [address] [place] [address] 07/13/2025 9:00 AM EDT Office Visit [facility] OPTOMETRY [address] [place], [place] [phone] Kamille Mendoza, OD [address] [place] [address] documented as of this encounter Visit Diagnoses Not on filedocumented in this encounter Care Teams Rim Technician Relationship Specialty Start Date End Date Pavithra Worthy FNP [address] [place] [address] PCP - General Family Medicine 03/06/22 11/17/23 Ela Webber MD [address] [place], [place] [phone] PCP - General Internal Medicine 11/18/23 documented as of this encounter
[2025-02-03 04:16] LABS: HIV Num 1 0.13 S/CO (0.00-0.99)
== END 2025-02-02 16:35 | disposition home or self-care (01) ==
LOC: HO.LAB 16:34
PROVIDERS: PCP Internal Medicine; Visit Provider Internal Medicine
DX: E10.65 Type 1 diabetes mellitus with hyperglycemia (principal); E10.69 Type 1 diabetes mellitus with other specified complication; E87.0 Hyperosmolality and hypernatremia; L98.492 Non-pressure chronic ulcer of skin of other sites with fat layer exposed; Z11.4 Encounter for screening for human immunodeficiency virus [HIV]; Z20.6 Contact with and (suspected) exposure to human immunodeficiency virus [HIV]
CPT/HCPCS: 36415; 80048; 80061; 84443; 87389